=== PATIENT | male | born 1955 | race African-American/Black ===

== ENCOUNTER 2016-05-03 18:05 | Inpatient (IN) | payer MEDICARE ==
[~2016-05-03] VITALS: Ht 167.6 cm; Wt 62.3 kg
[2016-05-03] MEDS ORDERED: BENZ2TAB37 PO (18:26)
[2016-05-03] MEDS ORDERED: [UNRECOGNIZED DRUG - CODE] IM (18:28)
[2016-05-03 18:40] LABS: BASOPHILS % 0.2 % (0.0-2.0); CONDITION 1; EOSINOPHILS # 0.1 10^3/ul (0.0-0.5); HEMATOCRIT 41.7 % (42.0-52.0); LH ANALYZER COMMENTS 1; LYMPHOCYTES % 19.3 % (15.0-51.0); MEAN CORPUSCULAR HEMOGLOBIN 30.9 pg (29.0-33.0); MEAN CORPUSCULAR HGB CONC 33.5 g/dl (32.0-37.0); MEAN CORPUSCULAR VOLUME 92.1 fl (82.0-101.0); MEAN PLATELET VOLUME 7.9 fl (7.4-10.4); MONOCYTES % 9.9 % (0.0-11.0); NEUTROPHIL # 7.1 10^3/ul (1.6-7.5); NEUTROPHILS % 69.6 % (39.0-77.0); PLATELET COUNT 206 10^3/UL (140-440); RED BLOOD COUNT 4.53 10^6/ul (4.70-6.10); RED CELL DISTRIBUTION WIDTH 16.4 % (11.5-14.5); UNCORRECTED WBC 10.2 10^3/ul (4.8-10.8); WHITE BLOOD COUNT 10.2 10^3/ul (4.8-10.8)
--- NOTE | 2016-05-03 18:40 | RADRPT ---
PROCEDURE: XR Chest. CLINICAL INDICATION: Chest pain TECHNIQUE: Chest AP portable. COMPARISON: No comparison available. FINDINGS: The mediastinal structures are unremarkable. The heart is normal in size and configuration. The pu lmonary vascularity is normal. The lung perales are unremarkable. No consolidation is identified. The pleural spaces are unremarkable. The axial skeleton is unremarkable. IMPRESSION: No active intrathoracic disease. RPTAT: HGDB .Gutierrez Iraheta MD, MD Date Time Electronically viewed and signed by .Gutierrez Iraheta MD, MD on 05/03/2016 18:40 .B/
[2016-05-03 18:49] LABS: INR 0.89; PT RATIO 0.9
[2016-05-03 18:50] LABS: PARTIAL THROMBOPLASTIN TIME 29.2 Sec (25.0-35.0)
[2016-05-03 18:51] LABS: CHLORIDE 105 mmol/L (97-110); POTASSIUM 3.6 mmol/L (3.5-5.1); SODIUM 143 mmol/L (135-144)
[2016-05-03 18:53] LABS: CREATININE 0.89 mg/dl (0.61-1.24)
[2016-05-03 18:54] LABS: ANION GAP 14 (8-16); BLOOD UREA NITROGEN 12 mg/dl (7-20); CALCIUM 10.1 mg/dl (8.4-10.2); CARBON DIOXIDE 28 mmol/L (21-31); GLUCOSE 94 mg/dl (70-220)
[2016-05-03 19:07] LABS: TROPONIN-I < 0.012 ng/ml (0.00-0.12)
--- NOTE | 2016-05-03 19:34 | RADRPT ---
PROCEDURE: CT Brain without contrast. CLINICAL INDICATION: LLE weakness TECHNIQUE: A multiplanar CT of the brain was performed on a CT scanner utilizing axial imaging fro m the skull base through the vertex without IV contrast. The CTDIvol is 44.73 mGy and the DLP is 72 0.23 mGycm. One or more of the following dose reduction techniques were utilized: Automated exposu re control, adjustment of the mA and/or kV according to patient size, use of iterative reconstructio n technique. COMPARISON: None FINDINGS: No evidence of intracranial hemorrhage or abnormal extra-axial fluid collection. Subtle low attenuation in the region of the anterior limb of the right internal capsule. . Chronic microvascular ischemic injury versus lacunar infarct. The brain parenchyma is otherwise normal attenuation morphology with preservation of orourke white diff erentiation and age appropriate size of the ventricles and subarachnoid spaces. The posterior fossa contents, brainstem, craniocervical junction, orbits, pituitary axis, paranasal sinuses, mastoid air cells, and calvarium are unremarkable. Note is made of 2 cm cutaneous nodule pr otruding from a left supraorbital scalp. IMPRESSION: 1. Subtle focus of low attenuation in the region of the anterior limb of the right internal capsule . This may reflect chronic microvascular ischemic change versus lacunar infarct. Diffusion weighte d MRI may be considered for further evaluation. 2. No other acute intracranial abnormality or evidence of intracranial hemorrhage. RPTAT:AAJJ Physician Betsy Date Time Electronically viewed and signed by Physician Betsy on 05/03/2016 19:34 MIRIAM/
--- NOTE | 2016-05-03 19:49 | ERA ---
ER Documentation Chief Complaint Date/Time DATE: 05/03/16 TIME: 19:46 Chief Complaint woke up with left side weakness HPI This is a 60-year-old male with a history of hypertension and diabetes who presents to the emergency room for evaluation of left-sided weakness. The patient states that he woke up this morning with weakness in his left lower extremity and left upper extremity however he states the weakness in his left lower extremity is worse. He states that when he walks he cannot walk a straight line and is walking to the left. The patient denies any headache at this time, denies any numbness or tingling in his extremities and came to the emergency room for evaluation by ambulance. ROS All systems reviewed and are negative except as per history of present illness. Medications Home Meds Reported Medications Fluphenazine Decanoate (Prolixin Decanoate) 25 Mg/Ml Soln, 25 MG IM Q14 DAYS, EA 05/03/16 Benztropine Mesylate* (Benztropine Mesylate*) 2 Mg Tablet, 2 MG PO BID, TAB 05/03/16 Allergies Allergies: Coded Allergies: No Known Allergy (Unverified , 05/03/16) PMhx/Soc History of Surgery: Yes (unbilical hernia ) Anesthesia Reaction: No Hx Neurological Disorder: No Hx Respiratory Disorders: No Hx Cardiac Disorders: No (htn) Hx Psychiatric Problems: No Hx Miscellaneous Medical Probl: No Hx Alcohol Use: No Hx Substance Use: No Hx Tobacco Use: No Smoking Status: Former smoker Physical Exam Vitals Vital Signs Date Time Temp Pulse Resp B/P Pulse Ox O2 Delivery O2 Flow Rate FiO2 05/03/16 18:13 Nasal Cannula 2 05/03/16 18:07 97.8 69 18 166/91 99 Physical Exam INITIAL VITAL SIGNS: Reviewed by me GENERAL: The patient is well developed and appropriate for usual state of health in no apparent distress, pleasant affect HEENT: Pupils equal, round, and reactive to light. EOMI. There is no scleral icterus. NECK: C-spine is soft and supple, there is no meningismus. There is no cervical lymphadenopathy. LUNGS: Clear to auscultation bilaterally. There are no rales, wheezes or rhonchi. HEART: Regular rate and rhythm, no murmurs, clicks, rubs or gallops. ABDOMEN: Soft, non-tender, non-distended. There are bowel sounds in all four quadrants. No rebound or guarding. EXTREMITIES: There is no peripheral cyanosis or edema. No focal swelling or erythema. NEUROLOGICAL: The patient has 5 out of 5 strength in the right upper and right lower extremity. He has 4 out of 5 strength in the left upper extremity, and 3 out of 5 strength in the left lower extremity, alert and oriented to person place and time SKIN: There is no apparent rash or petechiae. HEME/LYMPHATIC: There is no evidence of excessive bruising or lymphedema. PSYCHIATRIC: The patient does not appear anxious or depressed. Result Diagram: 05/03/16182405/03/161824 Results 24 hrs Laboratory Tests Test 05/03/16 18:25 Activated Partial Thromboplast Time 29.2Sec Anion Gap 14 Basophils # 0.010^3/ul Basophils % 0.2% Blood Morphology Comment Blood Urea Nitrogen 12mg/dl Calcium Level 10.1mg/dl Carbon Dioxide Level 28mmol/L Chloride Level 105mmol/L Creatinine 0.89mg/dl Eosinophils # 0.110^3/ul Eosinophils % 1.0% Glucose Level 94mg/dl Hematocrit 41.7% Hemoglobin 14.0g/dl INR International Normalized Ratio 0.89 Lymphocytes # 2.010^3/ul Lymphocytes % 19.3% Mean Corpuscular Hemoglobin 30.9pg Mean Corpuscular Hemoglobin Concent 33.5g/dl Mean Corpuscular Volume 92.1fl Mean Platelet Volume 7.9fl Monocytes # 1.010^3/ul Monocytes % 9.9% Neutrophils # 7.110^3/ul Neutrophils % 69.6% Nucleated Red Blood Cells # 0.010^3/ul Nucleated Red Blood Cells % 0.0/100WBC Platelet Count 46695^3/UL Potassium Level 3.6mmol/L Prothrombin Time 12.0Sec Prothrombin Time Ratio 0.9 Red Blood Count 4.5310^6/ul Red Cell Distribution Width 16.4% Sodium Level 143mmol/L Troponin I < 0.012ng/ml White Blood Count 10.210^3/ul Current Medications Medications (Trade) Dose Ordered Sig/Kash Route PRN Reason Start Time Stop Time Status Last Admin Dose Admin Aspirin (Aspirin) 325 mg ONCE ONCE PO 05/03/16 20:00 05/03/16 20:01 05/03/16 19:42 Ondansetron HCl (Zofran Inj) 4 mg ER BRIDGE PRN IV NAUSEA AND/OR VOMITING 05/03/16 20:00 05/04/16 19:59 Acetaminophen (Tylenol Tab) 650 mg ER BRIDGE PRN PO MILD PAIN/FEVER 05/03/16 20:00 05/04/16 19:59 Procedures/MDM EKG: Rate/Rhythm: Sinus bradycardia QRS, ST, T-waves: [No changes consistent w/ acute ischemia] Impression: [No evidence of ischemia or arrhythmia] Chest X-ray 1V Interpreted by me: Soft Tissue: No acute abnormalities Bones: No acute abnormalities Mediastinum/Cardiac Silhouette/Lungs: [No acute abnormalities] CT head without: 1. Subtle focus of low attenuation in the region of the anterior limb of the right internal capsule. This may reflect chronic microvascular ischemic change versus lacunar infarct. Diffusion weighted MRI may be considered for further evaluation. 2. No other acute intracranial abnormality or evidence of intracranial hemorrhage. This is a 60-year-old male who presents to the emergency room for evaluation of left lower extremity weakness. This patient did state he woke up with these symptoms. On physical examination this patient does have left lower extremity weakness compared to the right, and I did obtain a CT of his brain which shows focus of low attenuation in the region of the anterior limb of the right internal capsule. Given this patient's left-sided weakness this patient will be placed in for admission for CVA. He is out of timeframe for any TPA at this time. He did pass a swallow screen and was given 325 mg of aspirin. He will undergo an MRI of the brain and will be admitted at this time under the care of her panel physician, Dr. laureano to the telemetry floor Departure Diagnosis: Primary Impression: CVA (cerebral vascular accident) Additional Impression: Left leg weakness Condition: WINSTON Moise DO May 03, 2016 19:49
--- NOTE | 2016-05-03 19:54 | HP ---
Date/Time of Note Date/Time of Note DATE: 05/03/16 TIME: 19:54 Assessment/Plan VTE Prophylaxis VTE Prophylaxis Intervention: SCD's Lines/Catheters IV Catheter Type (from Nrs): Peripheral IV Assessment/Plan Assessment/Plan PROBLEMS: 1. Acute L sided weakness 2/2 probable acute CVA 2. Chronic Paranoid Schizophrenia: controlled 3. Prev CVA with residual visual deficits PLAN: Admit tele / MRI / MRA brain and neck / 2D echo PT / OT eval / Neurology consult Screening labs for dyslipidemia, DM, Thyroid disease Empiric ASA / Statin therapy Continue home meds for co-morbidities Further evaluation and treatment will be based on clinical course and findings PROPHYLAXIS: SCDs / Pepcid Total time spent on this evaluation >35mins HPI/ROS Admit Date/Time Admit Date/Time 05/03/16 Hx of Present Illness PRESENTING COMPLAINT: L sided weakness HISTORY OF PRESENTING COMPLAINT: Mr Mauricio is a 60 yo M with a PMH of paranoid Schizophrenia controlled on meds who presents with L sided weakness of >1 day. Patient cannot recall exactly when symptoms started, but he does notes waking up yesterday morning and finding out that he was quite weak on his left side. Attempts to ambulate met with falling and stumbling to the L. Now he is unable to lift his LUE against gravity without assistance. He has had a stroke with residual visual deficits only worse in L eye but no deficits in his extremities. He also has some tremors from his psych med and that is controlled with cogentin. Brain CT in ER showed a possible Int capsule stroke, patient needs further work up, eval and MRI. ROS 12 point review if systems was done and pertinent findings are as noted. Eyes: visual change (chronic) ENT: no complaints Respiratory: no complaints Cardiovascular: no complaints Gastrointestinal: no complaints Musculoskeletal: other (focal deficits) Psychological: other (denies homicidal ideations), No suicidal PMH/Family/Social Past Medical History * Paranoid schizophrenia Past Surgical History * Umb hernia repair Family History Significant Family History: no pertinent family hx Social History Alcohol Use: none Smoking Status: Current every day smoker (x 40 years) Drug Use: marijuana Exam/Review of Systems Vital Signs Vitals Vital Signs Date Time Temp Pulse Resp B/P Pulse Ox O2 Delivery O2 Flow Rate FiO2 05/03/16 18:13 Nasal Cannula 2 05/03/16 18:07 97.8 69 18 166/91 99 Exam Constitutional: alert, oriented Psych: No suicidal Head: normocephalic Eyes: PERRL ENMT: mucosa pink and moist Neck: supple Respiratory: clear to auscultation, normal air movement Cardiovascular: regular rate and rhythm, No murmurs/extra sounds Gastrointestinal: bowel sounds, non-tender, soft Genitourinary - Female: No CVA tenderness Musculoskeletal: muscle weakness, nl extremities to inspection, No nl gait and stance Extremities: No edema Neurological: focal weakness (LUE power 3/5, LLE power 3.5/5, Right side extremities are normal), nl mental status, nl speech, No confused Labs Result Diagram: 05/03/16182405/03/161824 Medications Medications Current Medications Aspirin (Aspirin) 325 mg ONCE ONCE PO Last administered on 05/03/16t 19:42; Admin Dose 325 MG; Start 05/03/16 at 20:00; Stop 05/03/16 at 20:01 Procedures Procedures Laboratory Tests Test 05/03/16 18:25 Activated Partial Thromboplast Time 29.2Sec Anion Gap 14 Basophils # 0.010^3/ul Basophils % 0.2% Blood Morphology Comment Blood Urea Nitrogen 12mg/dl Calcium Level 10.1mg/dl Carbon Dioxide Level 28mmol/L Chloride Level 105mmol/L Creatinine 0.89mg/dl Eosinophils # 0.110^3/ul Eosinophils % 1.0% Glucose Level 94mg/dl Hematocrit 41.7% Hemoglobin 14.0g/dl INR International Normalized Ratio 0.89 Lymphocytes # 2.010^3/ul Lymphocytes % 19.3% Mean Corpuscular Hemoglobin 30.9pg Mean Corpuscular Hemoglobin Concent 33.5g/dl Mean Corpuscular Volume 92.1fl Mean Platelet Volume 7.9fl Monocytes # 1.010^3/ul Monocytes % 9.9% Neutrophils # 7.110^3/ul Neutrophils % 69.6% Nucleated Red Blood Cells # 0.010^3/ul Nucleated Red Blood Cells % 0.0/100WBC Platelet Count 91673^3/UL Potassium Level 3.6mmol/L Prothrombin Time 12.0Sec Prothrombin Time Ratio 0.9 Red Blood Count 4.5310^6/ul Red Cell Distribution Width 16.4% Sodium Level 143mmol/L Troponin I < 0.012ng/ml White Blood Count 10.210^3/ul ER INTERVENTIONS Medications (Trade) Dose Ordered Sig/Kash Route PRN Reason Start Time Stop Time Status Last Admin Dose Admin Aspirin (Aspirin) 325 mg ONCE ONCE PO 05/03/16 20:00 05/03/16 20:01 DC 05/03/16 19:42 Ondansetron HCl (Zofran Inj) 4 mg ER BRIDGE PRN IV NAUSEA AND/OR VOMITING 05/03/16 20:00 05/04/16 19:59 Acetaminophen (Tylenol Tab) 650 mg ER BRIDGE PRN PO MILD PAIN/FEVER 05/03/16 20:00 05/04/16 19:59 PROCEDURE: XR Chest. CLINICAL INDICATION: Chest pain TECHNIQUE: Chest AP portable. COMPARISON: No comparison available. FINDINGS: The mediastinal structures are unremarkable. The heart is normal in size and configuration. The pulmonary vascularity is normal. The lung perales are unremarkable. No consolidation is identified. The pleural spaces are unremarkable. The axial skeleton is unremarkable. IMPRESSION: No active intrathoracic disease. RPTAT: HGDB .Gutierrez Iraheta MD, Date Time Electronically viewed and signed by .Gutierrez Iraheta MD, on 05/03/2016 18:40 PROCEDURE: CT Brain without contrast. CLINICAL INDICATION: LLE weakness TECHNIQUE: A multiplanar CT of the brain was performed on a CT scanner utilizing axial imaging from the skull base through the vertex without IV contrast. The CTDIvol is 44.73 mGy and the DLP is 720.23 mGycm. One or more of the following dose reduction techniques were utilized: Automated exposure control, adjustment of the mA and/or kV according to patient size, use of iterative reconstruction technique. COMPARISON: None FINDINGS: No evidence of intracranial hemorrhage or abnormal extra-axial fluid collection. Subtle low attenuation in the region of the anterior limb of the right internal capsule. . Chronic microvascular ischemic injury versus lacunar infarct. The brain parenchyma is otherwise normal attenuation morphology with preservation of orourke white differentiation and age appropriate size of the ventricles and subarachnoid spaces. The posterior fossa contents, brainstem, craniocervical junction, orbits, pituitary axis, paranasal sinuses, mastoid air cells, and calvarium are unremarkable. Note is made of 2 cm cutaneous nodule protruding from a left supraorbital scalp. IMPRESSION: 1. Subtle focus of low attenuation in the region of the anterior limb of the right internal capsule. This may reflect chronic microvascular ischemic change versus lacunar infarct. Diffusion weighted MRI may be considered for further evaluation. 2. No other acute intracranial abnormality or evidence of intracranial hemorrhage. RPTAT:AAJJ Jose Antoine Physician Date Time Electronically viewed and signed by Physician Betsy on 05/03/2016 19:34 DAVE RAY May 03, 2016 19:54
[2016-05-03] MEDS ORDERED: ACETAMINOPHEN 325 MG TAB PO PRN ×2 (20:00→22:00)
[2016-05-03] MEDS ORDERED: ONDANSETRON 4 MG INJ IV PRN ×2 (20:00→22:00)
[2016-05-03] MEDS ORDERED: ASPIRIN 325 MG TAB PO ONE (20:00)
[2016-05-03 21:45] VITALS: Ht 167.6 cm; Wt 62.3 kg
[2016-05-03 21:50] VITALS: PULSE 50
[2016-05-03 21:59] VITALS: BP 168/90; RESP 16
[2016-05-03] MEDS ORDERED: hydrALAzine 20 MG INJ IV PRN (22:00)
[2016-05-03 23:26] VITALS: BP 141/60; RESP 16
[2016-05-04] VITALS (12 sets, daily range): BP systolic 124–172; BP diastolic 90–101; PULSE 52–88; RESP 16–20
[2016-05-04 00:57] LABS: ADD UMIC YES; URINE BILIRUBIN (Dip) NEGATIVE (NEGATIVE); URINE BLOOD (Dip) TRACE (NEGATIVE); URINE COLOR LT. YELLOW (YELLOW); URINE GLUCOSE (Dip) NEGATIVE (NEGATIVE); URINE KETONES (Dip) NEGATIVE (NEGATIVE); URINE LEUKOCYTE ESTERASE (Dip) NEGATIVE (NEGATIVE); URINE NITRITE (Dip) NEGATIVE (NEGATIVE); URINE TOTAL PROTEIN (Dip) NEGATIVE (NEGATIVE); URINE UROBILINOGEN (Dip) 0.2 E.U./dL (0.1-1.0)
[2016-05-04 01:11] LABS: CREATINE KINASE 99 IU/L (23-200)
[2016-05-04 01:16] LABS: SQUAMOUS EPITHELIAL CELL,UR RARE; URINE RBCS 0-2 /HPF (0)
[2016-05-04 01:21] LABS: CK-MB 0.77 ng/ml (0.0-2.4)
[2016-05-04 01:25] LABS: TROPONIN-I < 0.012 ng/ml (0.00-0.12)
[2016-05-04 01:26] LABS: BARBITURATES Negative (NEGATIVE); BENZODIAZEPINES Negative (NEGATIVE)
[2016-05-04 01:28] LABS: CANNABINOIDS Positive (NEGATIVE)
[2016-05-04 01:30] LABS: COCAINE Negative (NEGATIVE); OPIATES Negative (NEGATIVE)
[2016-05-04 06:11] LABS: BASOPHILS % 0.2 % (0.0-2.0); EOSINOPHILS # 0.2 10^3/ul (0.0-0.5); EOSINOPHILS % 1.5 % (0.0-7.0); HEMOGLOBIN 14.1 g/dl (14.0-18.0); LYMPHOCYTES # 1.7 10^3/ul (0.8-2.9); LYMPHOCYTES % 17.1 % (15.0-51.0); MEAN CORPUSCULAR HEMOGLOBIN 30.8 pg (29.0-33.0); MEAN CORPUSCULAR HGB CONC 33.6 g/dl (32.0-37.0); MEAN CORPUSCULAR VOLUME 91.6 fl (82.0-101.0); MEAN PLATELET VOLUME 7.8 fl (7.4-10.4); MONOCYTES % 9.8 % (0.0-11.0); NEUTROPHIL # 7.3 10^3/ul (1.6-7.5); NEUTROPHILS % 71.4 % (39.0-77.0); PLATELET COUNT 220 10^3/UL (140-440); RED BLOOD COUNT 4.58 10^6/ul (4.70-6.10); RED CELL DISTRIBUTION WIDTH 16.1 % (11.5-14.5); UNCORRECTED WBC 10.2 10^3/ul (4.8-10.8); WHITE BLOOD COUNT 10.2 10^3/ul (4.8-10.8)
[2016-05-04 06:21] LABS: CONDITION 1; LH ANALYZER COMMENTS 1
[2016-05-04 06:42] LABS: CK-MB 0.86 ng/ml (0.0-2.4)
[2016-05-04 06:44] LABS: TROPONIN-I < 0.012 ng/ml (0.00-0.12)
[2016-05-04 06:44] LABS: IRON 106 ug/dl (35-150)
[2016-05-04 06:48] LABS: CREATINE KINASE 95 IU/L (23-200); POTASSIUM 3.4 mmol/L (3.5-5.1)
[2016-05-04 06:50] LABS: BILIRUBIN,INDIRECT 0.4 mg/dl (0-1.1); BILIRUBIN,TOTAL 0.4 mg/dl (0.2-1.3); CREATININE 0.92 mg/dl (0.61-1.24); TOTAL PROTEIN 7.5 g/dl (6.1-8.1)
[2016-05-04 06:51] LABS: CALCIUM 9.7 mg/dl (8.4-10.2); CHOL/HDL RATIO 4.1 RATIO; MAGNESIUM 1.8 mg/dl (1.7-2.5)
[2016-05-04 06:54] LABS: TOTAL IRON BINDING CAPACITY 370 ug/dl (241-421)
[2016-05-04 06:56] LABS: ALBUMIN 3.8 g/dl (3.3-4.9)
[2016-05-04] MEDS: DOCUSATE SODIUM 100 MG CAP PO SCH ×2 (08:21→20:23)
[2016-05-04] MEDS: FAMOTIDINE 20 MG TAB PO SCH ×2 (08:21→20:23)
[2016-05-04] MEDS: HYDROCHLOROTHIAZIDE 25 MG TAB PO SCH (08:22)
[2016-05-04] MEDS ORDERED: ASPIRIN (EC) 81 MG TAB PO SCH (09:00)
--- NOTE | 2016-05-04 15:29 | PN ---
Date/Time of Note Date/Time of Note DATE: 05/04/16 TIME: 15:23 Assessment/Plan VTE Prophylaxis VTE Prophylaxis Intervention: SCD's Lines/Catheters IV Catheter Type (from [facility]): [facility] Urinary Cath still in place: No Assessment/Plan Chief Complaint/Hosp Course 1. Acute L sided weakness 2/2 probable acute CVA -MRI to R/O CVA -PT/OT eval -Empiric ASA / Statin therapy, Neurology consult 2. Chronic Paranoid Schizophrenia: controlled 3. Prev CVA with residual visual deficits PPx- SCD's Problems: Subjective 24 Hr Interval Summary Neurologic: focal-weakness (L side ) Exam/Review of Systems Vital Signs Vitals Vital Signs Date Time Temp Pulse Resp B/P Pulse Ox O2 Delivery O2 Flow Rate FiO2 05/04/16 12:34 56 05/04/16 12:30 98.0 18 156/101 98 Room Air 05/03/16 18:13 2 Intake and Output 05/03/16 05/03/16 05/04/16 15:00 23:00 07:00 Intake Total 400 ml Output Total 700 ml Balance -300 ml Exam Constitutional: alert, oriented Respiratory: clear to auscultation Cardiovascular: regular rate and rhythm Gastrointestinal: soft, No distended Musculoskeletal: nl extremities to inspection Neurological: focal weakness (4+/5 strength on L and 5/5 on R ) Results Result Diagram: 05/04/1624 05/04/16 0524 Results 24 hrs Laboratory Tests Test 05/03/16 18:25 05/04/16 00:00 05/04/16 00:35 05/04/16 05:24 Activated Partial Thromboplast Time 29.2 Anion Gap 14 15 Basophils # 0.0 0.0 Basophils % 0.2 0.2 Blood Morphology Comment Blood Urea Nitrogen 12 14 Calcium Level 10.1 9.7 Carbon Dioxide Level 28 26 Chloride Level 105 107 Creatinine 0.89 0.92 Eosinophils # 0.1 0.2 Eosinophils % 1.0 1.5 Glucose Level 94 93 Hematocrit 41.7 L 42.0 Hemoglobin 14.0 14.1 INR International Normalized Ratio 0.89 Lymphocytes # 2.0 1.7 Lymphocytes % 19.3 17.1 Mean Corpuscular Hemoglobin 30.9 30.8 Mean Corpuscular Hemoglobin Concent 33.5 33.6 Mean Corpuscular Volume 92.1 91.6 Mean Platelet Volume 7.9 7.8 Monocytes # 1.0 H 1.0 H Monocytes % 9.9 9.8 Neutrophils # 7.1 7.3 Neutrophils % 69.6 71.4 Nucleated Red Blood Cells # 0.0 0.0 Nucleated Red Blood Cells % 0.0 0.0 Platelet Count 206 220 Potassium Level 3.6 3.4 L Prothrombin Time 12.0 L Prothrombin Time Ratio 0.9 Red Blood Count 4.53 L 4.58 L Red Cell Distribution Width 16.4 H 16.1 H Sodium Level 143 145 H Troponin I < 0.012 < 0.012 < 0.012 White Blood Count 10.2 10.2 Urine Amorphous Urates FEW Urine Amphetamines Screen Negative Urine Barbiturates Negative Urine Benzodiazepines Screen Negative Urine Bilirubin NEGATIVE Urine Cannabinoids Positive Urine Clarity CLEAR Urine Cocaine Screen Negative Urine Color LT. YELLOW Urine Glucose NEGATIVE Urine Hemoglobin TRACE Urine Ketones NEGATIVE Urine Leukocyte Esterase NEGATIVE Urine Microscopic RBC 0-2 Urine Microscopic WBC NONE SEEN Urine Nitrite NEGATIVE Urine Opiates Screen Negative Urine Specific [employer] 1.015 Urine Squamous Epithelial Cells RARE Urine Total Protein NEGATIVE Urine Urobilinogen 0.2 E.U./dL Urine pH 7.0 Creatine Kinase 99 95 Creatine Kinase Index 0.8 0.9 Creatinine Kinase MB (Mass) 0.77 0.86 Alanine Aminotransferase (ALT/SGPT) 24 Albumin 3.8 Alkaline Phosphatase 83 Aspartate Amino Transf (AST/SGOT) 22 Cholesterol Level 211 H Cholesterol/HDL Ratio 4.1 Direct Bilirubin 0.00 HDL Cholesterol 51 Hemoglobin A1c 5.9 Indirect Bilirubin 0.4 LDL Cholesterol, Calculated 141 Magnesium Level 1.8 Thyroid Stimulating Hormone (TSH) Pending Total Bilirubin 0.4 Total Protein 7.5 Triglycerides Level 96 Test 05/04/16 05:29 Iron Level 106 Percent Iron Saturation 29 Total Iron Binding Capacity 370 Medications Medications Current Medications Aspirin (Halfprin) 81 mg DAILY PO Last administered on 05/04/16 08:21; Admin Dose 81 MG; Start 05/04/16 at 09:00 Famotidine (Pepcid) 20 mg BID PO Last administered on 05/04/16 08:21; Admin Dose 20 MG; Start 05/04/16 at 09:00 Docusate Sodium (Colace) 100 mg BID PO Last administered on 05/04/16 08:21; Admin Dose 100 MG; Start 05/04/16 at 09:00 Acetaminophen (Tylenol Tab) 650 mg Q6H PRN PO PAIN AND OR ELEVATED TEMP; Start 05/03/16 at 22:00 Ondansetron HCl (Zofran Inj) 4 mg Q6H PRN IV NAUSEA AND/OR VOMITING; Start 03/07 at 22:00 Hydrochlorothiazide (Hydrochlorothiazide) 25 mg DAILY PO Last administered on 08:22; Admin Dose 25 MG; Start 05/04/16 at 09:00 Hydralazine HCl (Apresoline) 10 mg Q6 PRN IV SBP >170mmhg Last administered on 05/04/16 08:26; Admin Dose 10 MG; Start 05/03/16 at 22:00 LAURA ROPER May 04, 2016 15:29
--- NOTE | 2016-05-04 15:52 | RADRPT ---
Echocardiogram Report Patient Name: MARCIA HUBBARD Gender: Male Date: 1955 Study Date: 04-May-2016 Secondary History Teacher: Sushila Velasquez [facility] Location: 510 Ref. Physician: DAVE RAY Quality: Good Procedures: Transthoracic echocardiogram with complete 2D, M-Mode, and doppler examination. Indications: Cerebrovascular Accident. 2D/M Mode Doppler Measurement Value Normal Ranges Measurement Value Normal Ranges LVIDd 2D 4.2 3.5 - 5.6 cm AV Peak Yanick 1.6 m/sec LVIDs 2D 2.1 2.1 - 4.1 cm AV Peak PG 10.0 mmHg FS 2D 48.7 % LVOT Peak Yanick 1.1 m/sec LVPWd 2D 1.3 0.6 - 1.1 cm LVOT Peak PG 5.0 mmHg IVSd 2D 1.1 0.6 - 1.1 cm MV E Peak Yanick 0.6 m/sec IVS/LVPW 2D 0.9 MV A Peak Yanick 0.7 m/sec AoR Diam 2D 2.8 2.0 - 3.7 cm MV E/A 1.0 LA/Ao 2D 1 0 - 1 MV Decel Time 243 msec EDV 2D 71.5 cm3 MV E/A 1.0 ESV 2D 9.7 cm3 LA Dimen 2D 2.7 2.3 - 4.0 cm Findings Left Ventricle: Normal left ventricular systolic function. Normal left ventricular cavity size. Mild concentric left ventricular hypertrophy. Ejection fraction is visually estimated at 65 %. Tissue Doppler/Mitral Doppler indices are consistent with impaired relaxation (Stage I diastolic dysfunction). Right Ventricle: Normal right ventricular size. Normal right ventricular systolic function. Left Atrium: The left atrium is normal in size. Right Atrium: The right atrium is normal in size. Mitral Valve: Mitral valve leaflets appear mildly thickened. Mild mitral valve regurgitation. Aortic Valve: Normal appearance of the aortic valve. No significant aortic stenosis or insufficiency. Tricuspid Valve: Normal appearance and function of the tricuspid valve with trace physiologic regurgitation. Pulmonic Valve: Normal pulmonic valve appearance. Pericardium: Normal pericardium with no significant pericardial effusion. Aorta: Normal aortic root. IVC: Normal size and normal respiratory collapse consistent with normal right atrial pressure. Conclusions 1.Normal left ventricular systolic function. Normal left ventricular cavity size. Mild concentric left ventricular hypertrophy. Ejection fraction is visually estimated at 65 %. Tissue Doppler/Mitral Doppler indices are consistent with impaired relaxation (Stage I diastolic dysfunction). 2.The left atrium is normal in size. 3.Mitral valve leaflets appear mildly thickened. Mild mitral valve regurgitation. 4.Normal appearance of the aortic valve. No significant aortic stenosis or insufficiency. 5.Normal appearance and function of the tricuspid valve with trace physiologic regurgitation. Electronically Signed By: Payam De Los Santos 04-May-2016 15:51:37 -0800 Patient Name: MARCIA HUBBARD Study Date: 04-May-[id number]
[2016-05-04 17:00] LABS: THYROID STIMULATING HORMONE 0.279 MIU/L (0.465-4.680)
[2016-05-04] MEDS: ATORVASTATIN 80 MG TAB PO SCH (20:23)
--- NOTE | 2016-05-04 23:07 | CONS ---
DATE OF ADMISSION: 05/03/2016 DATE OF CONSULTATION: 05/04/2016 TYPE OF CONSULTATION: Neurological. HISTORY OF PRESENT ILLNESS: The patient is a 60-year-old gentleman evaluated on 05/04/2016. According to the chart, patient has past medical history of paranoid schizophrenia and also previous history of a stroke about 1 year ago as well as hypertension and dyslipidemia who presented with le ft-sided weakness for approximately 1-day duration. He told me that he had a stroke about a year ag o with minimal residual of scotoma in the left eye. He states that he has history of hypertension a nd he goes to [facility], and he takes multiple different medications for blood pressure. Al so he is given medication for cholesterol. He takes baby aspirin, prior to admission he was taking. According to the note here, he is only on benztropine and Prolixin IM. ALLERGIES: NONE. SOCIAL HISTORY: Cigarette smoker: No. Drugs: Denies drug use and alcohol. FAMILY HISTORY: Not contributory. CURRENT MEDICATIONS: 1. Baby aspirin. 2. Pepcid. 3. Colace. 4. Hydrochlorothiazide. LABORATORY DATA: Essentially normal CBC, comprehensive metabolic panel. Cholesterol 211 and LDL 14 1. PT 12, PTT 29. Urinalysis negative. Tox screen is negative for drugs. IMAGING: The patient had chest x-ray. No acute disease. Brain CAT scan shows subtle low-attenuation focus in the anterior limb of the right internal capsule . ELECTROCARDIOGRAM: Sinus bradycardia. PHYSICAL EXAMINATION: VITAL SIGNS: Temperature 97.6, pulse 88, respirations 18, blood pressure 150/95. GENERAL: He is not in acute distress, lying in bed. HEENT: Normocephalic, atraumatic head. NECK: No carotid bruits. No thyromegaly. LUNGS: Clear to auscultation bilaterally. CARDIAC: Normal cardiac rhythm and sounds. ABDOMEN: Soft. Present bowel sounds. EXTREMITIES: No cyanosis, clubbing or edema. NEUROLOGIC: He is awake, alert and oriented x3 with fluent speech. Cranial nerve examination shows intact visual perales bilaterally. Pupils reactive from 3 to 2 mm bilaterally. Extraocular movemen ts intact without nystagmus. Minimally asymmetrical face with right nasolabial fold flattening but no definite weakness. Normal sensation on the face. Tongue is in midline. Palate elevates symmetr ically. Motor strength examination shows mild weakness about 4/5 in the left upper and lower extrem ities with trace of pronator drift. Normal bulk and tone. Sensory examination grossly intact to li ght touch and pain. Deep tendon reflexes 2+ throughout. Equivocal response to plantar stimulation on the left, downgoing on the right. Coordination examination shows mild dysmetria on zowfiq-gh-rrr veronica testing but no tremors. Gait was not assessed. IMPRESSION: Acute ischemic stroke in gentleman with risk factors for stroke. Keep euglycemic. It is okay to allow elevated blood pressure in the first few days after acute stroke as high as 220/120 , but the patient is already third day after stroke, so it is okay to gradually obtain control. We don't have full medication list for this patient. He states that he takes a lot of medicines from [facility]. I will switch aspirin to Plavix, start patient on high-dose Lipitor and continue current treatment otherwise. Continue physical therapy. Thank you very much for this interesting consultation. Dictated By: CHRIS CURRY/NIYAH Conf#: [id number] DID#: [id number]
[2016-05-05] VITALS (12 sets, daily range): BP systolic 136–161; BP diastolic 85–109; PULSE 69–106; RESP 15–21
--- NOTE | 2016-05-05 01:22 | RADRPT ---
PROCEDURE: MR Brain without contrast. CLINICAL INDICATION: TECHNIQUE: An MRI of the brain was performed on a 1.5 glenis scanner utilizing the following sequen kendra: Sagittal T1 weighted, axial T2 weighted, axial FLAIR, coronal GRE, and axial diffusion weighted with ADC mapping. COMPARISON: None FINDINGS: Restricted diffusion in right basal ganglia , external capsule, and florez radiata posteriorly siddhartha tible with acute/early subacute ischemic infarct. Remote lacunar infarcts in the basal ganglia bilat erally with chronic microvascular ischemic changes in the deep white matter. Preservation of orourke wh ite differentiation and prominence of the ventricles and subarachnoid spaces compatible with mild pa renchymal volume loss. There is no evidence of intracranial hemorrhage, mass effect, or midline shift. No extra-axial flui d collections are seen. No hypointense signal abnormalities are seen on the GRE images to suggest the presence of hemorrhage or blood degradation products. The posterior fossa contents, brainstem, seventh - eighth cranial nerve complexes, pituitary axis, o rbits, paranasal sinuses, and mastoid air cells are unremarkable. 2 cm cutaneous nodule protruding f rom of supraorbital scalp. Normal flow voids are visible in the proximal intracranial arteries and dural sinuses, indicating pa tency. IMPRESSION: 1. Restricted diffusion in the right basal ganglia/external capsule and posterior florez radiata com patible with acute/early subacute ischemic infarct. 2. No evidence of intracranial hemorrhage, edema, mass effect, or shift. 3. Chronic microvascular ischemic changes in the deep white matter and mild parenchymal volume loss . RPTAT:AAJJ Physician Betsy Date Time Electronically viewed and signed by Physician Betsy on 05/05/2016 01:21 MIRIAM/
--- NOTE | 2016-05-05 01:25 | RADRPT ---
PROCEDURE: MRA Neck without contrast. CLINICAL INDICATION: Dizziness. TECHNIQUE: An MRA of the major cervical arteries was performed on the 1.5 glenis scanner utilizing axial 2D time of flight. No IV contrast was given as ordered. Source and MIPPED images were reviewe d. COMPARISON: No prior studies are available for comparison. FINDINGS: The visualized aortic arch and i margin of the arch vessels are unremarkable . The common carotid arteries are patent and normal in caliber. Signal loss in the posterior aspect of the internal carotid artery bulb bilaterally likely flow rela demetria. A component of atherosclerotic plaque cannot be excluded. No evidence of hemodynamically sign ificant stenosis. Correlation with ultrasound and/or CT angiography may be considered. The vertebral arteries are patent and normal in caliber bilaterally. There is no evidence of vascul ar stenosis or occlusion. IMPRESSION: 1. No evidence of hemodynamically significant stenosis involving the neck vessels. 2. Signal loss at the level of the internal carotid artery bulbs bilaterally likely flow related. A component of atherosclerotic plaque cannot be excluded and correlation with Doppler ultrasound or CT angiography may be considered. RPTAT:AAJJ Physician Betsy Date Time Electronically viewed and signed by Physician Betsy on 05/05/2016 01:25 MIRIAM/
--- NOTE | 2016-05-05 01:34 | RADRPT ---
PROCEDURE: MRA Brain. CLINICAL INDICATION: Right basal ganglia ischemic infarct . TECHNIQUE: An MRA of the brain was performed on a 1.5 glenis scanner utilizing 3-D jhyi-wv-ttneiw MR angiography technique. Source and MIP images were reviewed. COMPARISON: None FINDINGS: The internal carotid arteries are patent and normal in caliber. The middle cerebral and the anterio r cerebral arteries are also patent and normal in caliber with no significant luminal irregularity o r narrowing identified. The basilar artery is markedly hypoplastic with greatest area of narrowing distally. This is likely developmental in nature. origin bilateral posterior cerebral arteries. The vertebral arteries and superior cerebellar arteries are visualized and normal in appearance. Th e right vertebral artery is dominant. The posterior cerebral arteries are patent and normal in appearance bilaterally. No aneurysms are detected. IMPRESSION: Markedly hypoplastic basilar artery. Otherwise, no intracranial aneurysm or vascular malformation. CT angiography may be considered for further characterization. RPTAT:AAJJ Physician Betsy Date Time Electronically viewed and signed by Physician Betsy on 05/05/2016 01:34 MIRIAM/
[2016-05-05 06:30] LABS: POTASSIUM 3.5 mmol/L (3.5-5.1)
[2016-05-05 06:33] LABS: BASOPHILS % 0.4 % (0.0-2.0); CALCIUM 10.1 mg/dl (8.4-10.2); CREATININE 0.99 mg/dl (0.61-1.24); EOSINOPHILS # 0.1 10^3/ul (0.0-0.5); EOSINOPHILS % 1.2 % (0.0-7.0); HEMATOCRIT 46.9 % (42.0-52.0); HEMOGLOBIN 15.9 g/dl (14.0-18.0); LYMPHOCYTES % 22.1 % (15.0-51.0); MEAN CORPUSCULAR HGB CONC 33.8 g/dl (32.0-37.0); MEAN CORPUSCULAR VOLUME 91.8 fl (82.0-101.0); MEAN PLATELET VOLUME 7.7 fl (7.4-10.4); MONOCYTE # 0.9 10^3/ul (0.3-0.9); MONOCYTES % 10.4 % (0.0-11.0); NEUTROPHILS % 65.9 % (39.0-77.0); PLATELET COUNT 226 10^3/UL (140-440); RED BLOOD COUNT 5.11 10^6/ul (4.70-6.10); UNCORRECTED WBC 9.1 10^3/ul (4.8-10.8); WHITE BLOOD COUNT 9.1 10^3/ul (4.8-10.8)
[2016-05-05 06:39] LABS: CONDITION 1; LH ANALYZER COMMENTS 1
[2016-05-05] MEDS: CLOPIDOGREL 75 MG TAB PO SCH (08:34)
[2016-05-05] MEDS: FAMOTIDINE 20 MG TAB PO SCH ×2 (08:34→21:19)
[2016-05-05] MEDS: HYDROCHLOROTHIAZIDE 25 MG TAB PO SCH (08:35)
[2016-05-05] MEDS: DOCUSATE SODIUM 100 MG CAP PO SCH ×2 (08:35→21:19)
--- NOTE | 2016-05-05 14:57 | PN ---
Date/Time of Note Date/Time of Note DATE: 05/05/16 TIME: 14:52 Assessment/Plan VTE Prophylaxis VTE Prophylaxis Intervention: SCD's Lines/Catheters IV Catheter Type [facility]from [facility] Saline Lock Urinary Cath still in place: No Assessment/Plan Chief Complaint/Hosp Course 1. Acute L sided weakness 2/2 acute CVA -MRI shows right basal ganglia/external capsule and posterior florez radiata compatible with acute/early subacute ischemic infarct -PT/OT eval pt is not ambulating well and will need Rehab, CM aware -Cont Plavix and Statin therapy, Neurology consult appreciated -will begin to treat HTN in AM with Norvasc 2. Chronic Paranoid Schizophrenia: controlled 3. Prev CVA with residual visual deficits 4. HTN -start Norvasc in AM PPx- SCD's Problems: Subjective 24 Hr Interval Summary Constitutional: no complaints Exam/Review of Systems Vital Signs Vitals Vital Signs Date Time Temp Pulse Resp B/P Pulse Ox O2 Delivery O2 Flow Rate FiO2 05/05/16 12:12 90 05/05/16 11:29 98.5 18 159/94 97 05/04/16 16:00 Room Air 05/03/16 18:13 2 Intake and Output 05/04/16 05/04/16 05/05/16 15:00 23:00 07:00 Intake Total 1320 ml 60 ml Output Total 800 ml 200 ml Balance 520 ml -140 ml Exam Constitutional: alert Respiratory: clear to auscultation Cardiovascular: regular rate and rhythm Gastrointestinal: soft, No distended Musculoskeletal: nl extremities to inspection Neurological: focal weakness (L sided weakness at 4-/5) Results Result Diagram: 05/05/16 0536 05/05/16 0536 Results 24 hrs Laboratory Tests Test 05/05/16 05:36 Anion Gap 18 H Basophils # 0.0 Basophils % 0.4 Blood Morphology Comment Blood Urea Nitrogen 22 H Calcium Level 10.1 Carbon Dioxide Level 25 Chloride Level 104 Creatinine 0.99 Eosinophils # 0.1 Eosinophils % 1.2 Glucose Level 113 Hematocrit 46.9 Hemoglobin 15.9 Lymphocytes # 2.0 Lymphocytes % 22.1 Mean Corpuscular Hemoglobin 31.0 Mean Corpuscular Hemoglobin Concent 33.8 Mean Corpuscular Volume 91.8 Mean Platelet Volume 7.7 Monocytes # 0.9 Monocytes % 10.4 Neutrophils # 6.0 Neutrophils % 65.9 Nucleated Red Blood Cells # 0.0 Nucleated Red Blood Cells % 0.0 Platelet Count 226 Potassium Level 3.5 Red Blood Count 5.11 Red Cell Distribution Width 16.0 H Sodium Level 143 White Blood Count 9.1 Medications Medications Current Medications Famotidine (Pepcid) 20 mg BID PO Last administered on 05/05/16 08:34; Admin Dose 20 MG; Start 05/04/16 at 09:00 Docusate Sodium (Colace) 100 mg BID PO Last administered on 05/05/16 08:35; Admin Dose 100 MG; Start 05/04/16 at 09:00 Acetaminophen (Tylenol Tab) 650 mg Q6H PRN PO PAIN AND OR ELEVATED TEMP; Start 05/03/16 at 22:00 Ondansetron HCl (Zofran Inj) 4 mg Q6H PRN IV NAUSEA AND/OR VOMITING; Start 03/07 at 22:00 Hydrochlorothiazide (Hydrochlorothiazide) 25 mg DAILY PO Last administered on 08:35; Admin Dose 25 MG; Start 05/04/16 at 09:00 Hydralazine HCl (Apresoline) 10 mg Q6 PRN IV SBP >170mmhg Last administered on 05/04/16 08:26; Admin Dose 10 MG; Start 05/03/16 at 22:00 Clopidogrel Bisulfate (plaVIX) 75 mg DAILY PO Last administered on 05/05/16 08 :34; Admin Dose 75 MG; Start 05/05/16 at 09:00 Atorvastatin Calcium (Lipitor) 80 mg HS PO Last administered on 05/04/16 20:23 ; Admin Dose 80 MG; Start 05/04/16 at 21:00 LAURA ROPER May 05, 2016 14:57
[2016-05-05] MEDS: AMLODIPINE 5 MG TAB PO SCH (15:37)
[2016-05-05] MEDS: ATORVASTATIN 80 MG TAB PO SCH (21:19)
[2016-05-05] MEDS: BENZTROPINE 1 MG TAB PO SCH (21:19)
[2016-05-06 00:04] VITALS: BP 135/87; RESP 19
[2016-05-06 00:33] VITALS: BP 142/97
[2016-05-06 02:53] VITALS: BP 115/74
[2016-05-06 05:47] LABS: BASOPHILS % 0.3 % (0.0-2.0); EOSINOPHILS # 0.1 10^3/ul (0.0-0.5); EOSINOPHILS % 1.3 % (0.0-7.0); HEMATOCRIT 47.4 % (42.0-52.0); HEMOGLOBIN 15.9 g/dl (14.0-18.0); LYMPHOCYTES % 21.7 % (15.0-51.0); MEAN CORPUSCULAR HEMOGLOBIN 30.9 pg (29.0-33.0); MEAN CORPUSCULAR HGB CONC 33.6 g/dl (32.0-37.0); MEAN CORPUSCULAR VOLUME 91.9 fl (82.0-101.0); MONOCYTE # 1.1 10^3/ul (0.3-0.9); MONOCYTES % 11.5 % (0.0-11.0); NEUTROPHILS % 65.2 % (39.0-77.0); PLATELET COUNT 223 10^3/UL (140-440); RED BLOOD COUNT 5.16 10^6/ul (4.70-6.10); RED CELL DISTRIBUTION WIDTH 15.7 % (11.5-14.5); UNCORRECTED WBC 9.2 10^3/ul (4.8-10.8); WHITE BLOOD COUNT 9.2 10^3/ul (4.8-10.8)
[2016-05-06 05:48] LABS: CONDITION 1; LH ANALYZER COMMENTS 1
[2016-05-06 06:00] LABS: POTASSIUM 3.5 mmol/L (3.5-5.1)
[2016-05-06 06:03] LABS: CALCIUM 10.1 mg/dl (8.4-10.2); CREATININE 1.05 mg/dl (0.61-1.24)
[2016-05-06 08:02] VITALS: BP 113/81; RESP 16
[2016-05-06] MEDS: DOCUSATE SODIUM 100 MG CAP PO SCH (09:13)
[2016-05-06] MEDS: FAMOTIDINE 20 MG TAB PO SCH (09:14)
[2016-05-06] MEDS: CLOPIDOGREL 75 MG TAB PO SCH (09:14)
[2016-05-06] MEDS: HYDROCHLOROTHIAZIDE 25 MG TAB PO SCH (09:16)
[2016-05-06] MEDS: AMLODIPINE 5 MG TAB PO SCH (09:16)
[2016-05-06] MEDS: BENZTROPINE 1 MG TAB PO SCH (09:39)
[2016-05-06] MEDS ORDERED: AMLO-145 PO (11:55)
[2016-05-06] MEDS ORDERED: ATOR80TA75 PO (11:55)
[2016-05-06] MEDS ORDERED: CLOP75TA28 PO (11:55)
[2016-05-06] MEDS ORDERED: HYD25 PO (11:55)
--- NOTE | 2016-05-06 16:23 | DS ---
DATE OF ADMISSION: 05/03/2016 DATE OF DISCHARGE: 05/06/2016 DISCHARGE DIAGNOSES: 1. Acute left-sided weakness secondary to acute cerebrovascular accident. MRI showed right basal g anglia stroke, as well as prominent posterior florez radiata. The patient was started on Plavix and statin. Discharged to rehab facility. 2. Hypertension. The patient was started on Norvasc and hydrochlorothiazide and BP is now stable. 3. Paranoid schizophrenia. Continue home medications. HOSPITAL COURSE: The patient is a 60-year-old male with history of schizophrenia and hypertension. The patient presented with left-sided weakness for 1 day and somewhat a poor historian on arrival. The patient had a brain MRI that showed a ____effusion in right basal ganglia external capsule and posterior florez radiata compatible with early subacute ischemic infarct. Of note, the patient had a brain CT on arrival that showed low attenuation in the region, anterior limb of the right internal capsule, which may reflect chronic microvascular ischemic changes versus lacunar infarct. Of note , the patient was not given TPA on arrival. Once again, his symptoms began greater than 1 day prior . The patient did receive PT and recommendation was for rehabilitation. The patient was seen by [facility]. The patient was started on Lipitor and Plavix. BP was initially allowed to be elevated se condary to permissive hypertension but ultimately it was treated outside the window for permissive h ypertension. He was controlled with hydrochlorothiazide and Norvasc. The patient was agreeable to rehab placement. wireless development manager did arrange for placement. On the day of discharge, the patient's vi tals and labs were stable. He had no acute complaints. Questions were answered. CONDITION ON DISCHARGE: Stable. DISPOSITION: To rehabilitation facility. MEDICATIONS: 1. The patient was given new prescription for Norvasc 5 daily. 2. Atorvastatin 80 mg p.o. at bedtime. 3. Plavix 75 daily. 4. Hydrochlorothiazide 25 mg daily. 5. The patient was to continue home medications. FOLLOWUP: The patient is to follow up with physicians at the rehab facility. Thirty minutes were spent coordinating discharge. Dictated By: LAURA ROPER MD BS/NTS Conf#: [id number] DID#: [id number]
== END 2016-05-06 14:07 | DRG 65 ==
LOC: E/R 18:05 → TEL 19:43 → MS1 05-06 00:40
PROVIDERS: ADMIT Family Medicine; ATTEND Family Medicine
DX: I63.9 Cerebral infarction, unspecified (principal); F20.0 Paranoid schizophrenia; I69.354 Hemiplegia and hemiparesis following cerebral infarction affecting left non-dominant side; I10 Essential (primary) hypertension; Z72.0 Tobacco use
CPT/HCPCS: 36415; 70450; 70544; 70549; 70551; 71010; 80048; 80061; 80076; 80307; 81001; 81003; 82550; 82553; 83036; 83540; 83735; 84443; 84484; 85025; 85610; 85730; 93005; 93306; 97110; 97116; 97162; 97530; J0360

== ENCOUNTER 2016-05-11 14:26 | Inpatient (IN) | payer MEDICARE ==
[~2016-05-11] VITALS: Ht 167.6 cm; Wt 63.6 kg
[~2016-05-11 14:26] MED LIST: AMLO-145 PO; ATOR80TA75 PO; BENZ2TAB37 PO; CLOP75TA28 PO; HYD25 PO; [UNRECOGNIZED DRUG - CODE] IM
--- NOTE | 2016-05-11 14:30 | ERA ---
ER Documentation Chief Complaint Date/Time DATE: 05/11/16 TIME: 14:30 Chief Complaint Left sided weakness HPI The patient is a 60-year-old male, presenting to the ER because of worsening left-sided weakness around 10 pm last night. He had a stroke about 2 weeks ago with left-sided weakness. He denies headache, dizziness, neck pain, chest pain , dyspnea, abdominal pain, vomiting, dysuria, diarrhea. He is unable to walk due to the stroke Past medical history: History of CVA with left hemiparesis, paranoid schizophrenia, hypertension, dyslipidemia ROS All systems reviewed and are negative except as per history of present illness. Medications Home Meds Active Scripts Hydrochlorothiazide* (Hydrochlorothiazide*) 25 Mg Tab, 25 MG PO DAILY, #30 TAB Prov:LAURA ROPER 05/06/16 Clopidogrel Bisulfate (Clopidogrel) 75 Mg Tablet, 75 MG PO DAILY, #30 TAB Prov:LAURA ROPER 05/06/16 Atorvastatin* (Atorvastatin*) 80 Mg Tablet, 80 MG PO HS, #30 TAB Prov:LAURA ROPER 05/06/16 Amlodipine Besylate* (Amlodipine Besylate*) 5 Mg Tablet, 5 MG PO DAILY, #30 TAB Prov:LAURA ROPER 05/06/16 Reported Medications Benztropine Mesylate* (Benztropine Mesylate*) 2 Mg Tablet, 2 MG PO BID, TAB 05/03/16 Discontinued Reported Medications Fluphenazine Decanoate (Prolixin Decanoate) 25 Mg/Ml Soln, 25 MG IM Q14 DAYS, EA 05/03/16 Allergies Allergies: Coded Allergies: No Known Allergy (Unverified , 05/11/16) PMhx/Soc History of Surgery: Yes (UMBILICAL HERNIA REMOVAL;) Anesthesia Reaction: No Hx Neurological Disorder: No Hx Respiratory Disorders: No Hx Cardiac Disorders: Yes (HTN) Hx Psychiatric Problems: No Hx Miscellaneous Medical Probl: Yes (HTN, DM, chronic paranoid schizophrenia, umbilical hernia) Hx Alcohol Use: No Hx Substance Use: No Hx Tobacco Use: Yes Physical Exam Vitals Vital Signs Date Time Temp Pulse Resp B/P Pulse Ox O2 Delivery O2 Flow Rate FiO2 05/11/16 17:00 98.5 91 18 140/109 100 Room Air 05/11/16 14:32 98.4 89 18 131/91 100 Physical Exam Const: No acute distress. Head: Atraumatic. Eyes: Normal Conjunctiva. ENT: Normal External Ears, Nose and Mouth. Neck: Full range of motion. No meningismus. Resp: Clear to auscultation bilaterally. Cardio: Regular rate and rhythm, no murmurs. Abd: Soft, non distended, normal bowel sounds, non tender. Skin: No petechiae or rashes. Back: No midline or flank tenderness. Ext: No cyanosis, or edema. Neur: Awake and alert. Left hemiparalysis Psych: Normal Mood and Affect. Result Diagram: 05/11/16 1430 05/11/16 1430 Results 24 hrs Laboratory Tests Test 05/11/16 14:30 05/11/16 15:29 Activated Partial Thromboplast Time 29.3Sec Anion Gap 14 Basophils # 0.110^3/ul Basophils % 1.3% Blood Morphology Comment Blood Urea Nitrogen 22mg/dl Calcium Level 9.7mg/dl Carbon Dioxide Level 30mmol/L Chloride Level 102mmol/L Creatinine 0.97mg/dl Eosinophils # 0.110^3/ul Eosinophils % 1.3% Glucose Level 90mg/dl Hematocrit 44.6% Hemoglobin 14.9g/dl Hemoglobin A1c 5.8% INR International Normalized Ratio 0.93 Lymphocytes # 1.810^3/ul Lymphocytes % 21.9% Mean Corpuscular Hemoglobin 31.0pg Mean Corpuscular Hemoglobin Concent 33.5g/dl Mean Corpuscular Volume 92.7fl Mean Platelet Volume 8.0fl Monocytes # 0.910^3/ul Monocytes % 10.9% Neutrophils # 5.410^3/ul Neutrophils % 64.6% Nucleated Red Blood Cells # 0.010^3/ul Nucleated Red Blood Cells % 0.0/100WBC Platelet Count 04000^3/UL Potassium Level 4.1mmol/L Prothrombin Time 12.5Sec Prothrombin Time Ratio 1.0 Red Blood Count 4.8110^6/ul Red Cell Distribution Width 14.7% Sodium Level 142mmol/L Troponin I < 0.012ng/ml White Blood Count 8.410^3/ul Bedside Glucose 88mg/dL Procedures/MDM EKG: Read by emergency physician Rate/Rhythm: Normal Sinus Rhythm 81 beats/min QRS, ST, T-waves: No ST elevation, no T inversion, left atrial enlargement, nonspecific T abnormality Impression: Abnormal EKG [place] [id number] Radiology Main Line: [phone] DIAGNOSTIC IMAGING REPORT Patient: MARCIA HUBBARD : 1955 Age: 60 Sex: M MR #: [id number] DOS: 05/11/16 1434 Ordering MD: KARLENE DONOHUE MD Location: E/R Room/Bed: PROCEDURE: CT Brain without contrast. CLINICAL INDICATION: Neurologic deficit TECHNIQUE: A CT of the brain was performed on multidetector high-resolution CT scanner utilizing axial sections from the skull base through the vertex without contrast. One or more of the following dose reduction techniques were used: Automated exposure control, Adjustment of the mA and/or kV according to patient size, and/or use of iterative reconstruction technique. DOSE: CTDI = 41 mGy and the DLP = 720 mGy-cm. COMPARISON: Head CT 05/03/2016 ; brain MRI 05/04/2016 FINDINGS: Evolution of the previously diagnosed subacute right basal ganglia/florez radiata lacunar infarct with hypoattenuation of CT now seen. Focal hypoattenuation in the right carlee is new from prior. No acute intracranial hemorrhage or midline shift. Patchy hypoattenuation of the cerebral white matter is compatible with mild chronic microvascular ischemic changes. Atherosclerotic calcifications of the cavernous segments of the internal carotid arteries are seen. Prominence of the cortical sulci and ventricles are related to mild cerebral volume loss. No significant opacification of the visualized paranasal sinuses or mastoids. IMPRESSION: Evolution of the previously diagnosed subacute right basal ganglia/florez radiata lacunar infarct with hypoattenuation of CT now seen. Focal hypoattenuation in the right carlee is new from prior. This could be due to artifact but a new infarct is not excluded. Recommend MRI brain for further evaluation. Mild chronic microvascular disease and intracranial atherosclerosis. A call report was made to Dr. DONOHUE at 05/11/2016 3:13:49 PM. RPTAT: AA .Matthew Magana MD, Date Time Electronically viewed and signed by .Matthew Magana MD, on 05/11/2016 15:14 .T/ CC: KARLENE DONOHUE MD MEDICAL MAKING DECISION: The patient is a 60-year-old male, presenting with acute on chronic left sided weakness, possible acute new stroke. The differential diagnoses considered include but are not limited to TIA, stroke, debility Departure Diagnosis: Primary Impression: Left-sided weakness Condition: Stable Comments I discussed the findings with the patient. I discussed the patient with the on- call hospitalist Dr. Solo who was made aware of the lab, the treatment, the patient condition. The patient is admitted to telemetry at 3:45 PM KARLENE DONOHUE MD May 11, 2016 14:30
[2016-05-11 14:41] LABS: BASOPHIL # 0.1 10^3/ul (0.0-0.1); BASOPHILS % 1.3 % (0.0-2.0); EOSINOPHILS # 0.1 10^3/ul (0.0-0.5); EOSINOPHILS % 1.3 % (0.0-7.0); HEMATOCRIT 44.6 % (42.0-52.0); HEMOGLOBIN 14.9 g/dl (14.0-18.0); LYMPHOCYTES # 1.8 10^3/ul (0.8-2.9); LYMPHOCYTES % 21.9 % (15.0-51.0); MEAN CORPUSCULAR HGB CONC 33.5 g/dl (32.0-37.0); MEAN CORPUSCULAR VOLUME 92.7 fl (82.0-101.0); MONOCYTE # 0.9 10^3/ul (0.3-0.9); MONOCYTES % 10.9 % (0.0-11.0); NEUTROPHIL # 5.4 10^3/ul (1.6-7.5); NEUTROPHILS % 64.6 % (39.0-77.0); PLATELET COUNT 239 10^3/UL (140-440); RED BLOOD COUNT 4.81 10^6/ul (4.70-6.10); RED CELL DISTRIBUTION WIDTH 14.7 % (11.5-14.5); UNCORRECTED WBC 8.4 10^3/ul (4.8-10.8); WHITE BLOOD COUNT 8.4 10^3/ul (4.8-10.8)
[2016-05-11 14:48] LABS: CHLORIDE 102 mmol/L (97-110); CONDITION 1; LH ANALYZER COMMENTS 1; SODIUM 142 mmol/L (135-144)
[2016-05-11 14:49] LABS: POTASSIUM 4.1 mmol/L (3.5-5.1)
[2016-05-11 14:50] LABS: INR 0.93; PROTIME 12.5 Sec (12.2-14.2)
[2016-05-11 14:51] LABS: ANION GAP 14 (8-16); CARBON DIOXIDE 30 mmol/L (21-31); CREATININE 0.97 mg/dl (0.61-1.24); PARTIAL THROMBOPLASTIN TIME 29.3 Sec (25.0-35.0)
[2016-05-11 14:52] LABS: BLOOD UREA NITROGEN 22 mg/dl (7-20); CALCIUM 9.7 mg/dl (8.4-10.2); GLUCOSE 90 mg/dl (70-220)
[2016-05-11 15:11] LABS: TROPONIN-I < 0.012 ng/ml (0.00-0.12)
--- NOTE | 2016-05-11 15:15 | RADRPT ---
PROCEDURE: CT Brain without contrast. CLINICAL INDICATION: Neurologic deficit TECHNIQUE: A CT of the brain was performed on multidetector high-resolution CT scanner utilizing a xial sections from the skull base through the vertex without contrast. One or more of the following dose reduction techniques were used: Automated exposure control, Adjustment of the mA and/or kV acc ording to patient size, and/or use of iterative reconstruction technique. DOSE: CTDI = 41 mGy and the DLP = 720 mGy-cm. COMPARISON: Head CT 05/03/2016 ; brain MRI 05/04/2016 FINDINGS: Evolution of the previously diagnosed subacute right basal ganglia/florez radiata lacunar infarct wi th hypoattenuation of CT now seen. Focal hypoattenuation in the right carlee is new from prior. No acu te intracranial hemorrhage or midline shift. Patchy hypoattenuation of the cerebral white matter is compatible with mild chronic microvascular ischemic changes. Atherosclerotic calcifications of the c avernous segments of the internal carotid arteries are seen. Prominence of the cortical sulci and ve ntricles are related to mild cerebral volume loss. No significant opacification of the visualized paranasal sinuses or mastoids. IMPRESSION: Evolution of the previously diagnosed subacute right basal ganglia/florez radiata lacunar infarct wi th hypoattenuation of CT now seen. Focal hypoattenuation in the right carlee is new from prior. This could be due to artifact but a new i nfarct is not excluded. Recommend MRI brain for further evaluation. Mild chronic microvascular disease and intracranial atherosclerosis. A call report was made to Dr. DONOHUE at 05/11/2016 3:13:49 PM. RPTAT: AA .Matthew Magana MD, MD Date Time Electronically viewed and signed by .Matthew Magana MD, MD on 05/11/2016 15:14 .T/
[2016-05-11 18:30] VITALS: TEMP 98.5
[2016-05-11] MEDS ORDERED: HALOPERIDOL 5 MG INJ ONE (19:26)
[2016-05-11] MEDS ORDERED: DIPHENHYDRAMINE 50 MG INJ ONE (19:26)
[2016-05-11] MEDS ORDERED: LORAZEPAM 2 MG INJ ONE (19:26)
[2016-05-11] MEDS ORDERED: hydrALAzine 20 MG INJ IV PRN (19:30)
[2016-05-11] MEDS ORDERED: ACETAMINOPHEN 325 MG TAB PO PRN (19:30)
[2016-05-11] MEDS ORDERED: ONDANSETRON 4 MG INJ IV PRN (19:30)
[2016-05-11] MEDS ORDERED: LORAZEPAM 2 MG INJ IV ONE (19:40)
[2016-05-11] MEDS ORDERED: HALOPERIDOL 5 MG INJ IV ONE (19:40)
[2016-05-11] MEDS ORDERED: DIPHENHYDRAMINE 50 MG INJ IV ONE (19:40)
[2016-05-11] MEDS ORDERED: IOHEXOL 350MG/ML 50 ML BTL ONE (20:08)
[2016-05-11] MEDS ORDERED: SOD CHLORIDE 0.9% 100 ML ONE (20:08)
[2016-05-11] MEDS ORDERED: IOHEXOL 100 ML ONE (20:08)
[2016-05-11] MEDS: BENZTROPINE 1 MG TAB PO SCH (21:00)
--- NOTE | 2016-05-11 21:09 | RADRPT ---
PROCEDURE: MRI Brain without contrast. CLINICAL INDICATION: Recurrent stroke TECHNIQUE: An MRI of the brain was performed on a high resolution hi-definition MRI scanner utiliz ing the following sequences: Sagittal and axial T1 weighted, axial T2 weighted, axial T2 FLAIR, axia l diffusion weighted with ADC mapping, an coronal GRE. COMPARISON: 05/04/2016 brain MRI and 05/03/[address] FINDINGS: On diffusion weighted sequences, extension of the previously noted acute infarct in the right tubing machine operator ior florez radiography and external capsule is now noted in the right posterior limb of the internal capsule and the right cortical spinal tracts in the right cerebral peduncle. No definite evidence for acute infarcts in the carlee are noted. No hypointense signal abnormalities are seen on the GRE i mages to suggest the presence of blood degradation products. No extra-axial fluid collections are p resent. The ventricles and sulci are age appropriate. Mild diffuse volume loss is present. On the FLAIR and T2-weighted sequences, punctate foci of hyperintensity are present in the bilateral centrum semiovale and periventricular white matter as well as the carlee compatible with mild chronic microvascular ischemic disease. No evidence of intracranial hemorrhage, mass effect or midline shif t is present. Normal flow voids are visible in the proximal intracranial arteries and dural sinuses , indicating patency. The scalp and calvarium are remarkable for a left frontal scalp 2.3 cm subcutaneous nodule. The dank varium is normal. The bilateral orbits are normal. The bilateral paranasal sinuses are clear. The bilateral mastoid air cells and middle ear cavities demonstrate incomplete pneumatization and katt l bilateral middle ear cavities. IMPRESSION: 1. Acute extension of ischemic infarct now noted in the right posterior limb of the internal capsul e and cerebral peduncle. 2. Acute or early subacute infarct in the right posterior florez radiography and external capsule a nd superior basal ganglia as noted on prior MRI. 3. Mild chronic microvascular ischemic disease and mild diffuse volume loss. 4. Left frontal 2.3 cm subcutaneous nodule. A call report was made to Dr. Remy at 05/11/2016 9:06:20 PM following the completion of the examin ation by the undersigned. RPTAT: HDC .Jeana Ba MD, Date Time Electronically viewed and signed by .Jeana Ba MD, on 05/11/2016 21:09 .C/
--- NOTE | 2016-05-11 21:17 | RADRPT ---
PROCEDURE: CTA head. CLINICAL INDICATION: Focal neurologic deficit. TECHNIQUE: Direct spiral 0.63 mm axial sections were obtained through the intracranial vasculature with the use of 90 cc of Omnipaque 350 nonionic intravenous contrast material. Coronal and sagitta l as well as 3-D maximal intensity projection reformations were obtained. The images were reviewed o n a PACS workstation. CTDIvol: 48.22, 33.60 mGy. DLP: 651.10 mGy-cm. COMPARISON: MRA brain dated 05/04/2016, brain MRI dated 05/11/2016. FINDINGS: The bilateral ICAs, ACAs, MCAs, and senior java ui developer are widely patent. Minimal calcified atherosclerotic plaque is identified along the cavernous left ICA. The vertebrobasilar system is patent. The basilar robert ry is hypoplastic. Bilateral PCOMs are visualized, right larger than left. The visualized cerebella r arteries are unremarkable. No intracranial aneurysm or vascular malformation is seen. IMPRESSION: 1. No significant stenosis or occlusion of the major intracranial arteries. The basilar artery is hy poplastic, however bilateral PCOMs are visualized, right larger than left. 2. No aneurysm or vascular malformation. RPTAT: HTAR .Kael Tracy MD, MD Date Time Electronically viewed and signed by .Kael Tracy MD, on 05/11/2016 21:17 .R/
[2016-05-11 21:30] VITALS: BP 153/93; RESP 18
[2016-05-11 21:54] VITALS: PULSE 112
[2016-05-11 22:25] LABS: ADD UMIC YES; URINE BILIRUBIN (Dip) NEGATIVE (NEGATIVE); URINE BLOOD (Dip) TRACE (NEGATIVE); URINE COLOR LT. YELLOW (YELLOW); URINE GLUCOSE (Dip) NEGATIVE (NEGATIVE); URINE KETONES (Dip) NEGATIVE (NEGATIVE); URINE LEUKOCYTE ESTERASE (Dip) NEGATIVE (NEGATIVE); URINE NITRITE (Dip) NEGATIVE (NEGATIVE); URINE TOTAL PROTEIN (Dip) NEGATIVE (NEGATIVE); URINE UROBILINOGEN (Dip) 1.0 E.U./dL (0.1-1.0)
[2016-05-11 22:55] LABS: BARBITURATES NEGATIVE (NEGATIVE); BENZODIAZEPINES NEGATIVE (NEGATIVE); CANNABINOIDS POSITIVE (NEGATIVE); COCAINE NEGATIVE (NEGATIVE); OPIATES NEGATIVE (NEGATIVE)
[2016-05-11 23:17] VITALS: Ht 167.6 cm; Wt 63.6 kg
[2016-05-11] MEDS: FAMOTIDINE 20 MG TAB PO SCH (23:45)
[2016-05-11] MEDS: ATORVASTATIN 80 MG TAB PO SCH (23:45)
[2016-05-11] MEDS: DOCUSATE SODIUM 100 MG CAP PO SCH (23:45)
[2016-05-12] VITALS (12 sets, daily range): BP systolic 120–146; BP diastolic 76–94; PULSE 70–100; RESP 15–20
--- NOTE | 2016-05-12 00:09 | RADRPT ---
PROCEDURE: XR Chest. CLINICAL INDICATION: Possible Stroke, altered mental status TECHNIQUE: Single frontal view of the chest was obtained. COMPARISON: 05/03/2016 FINDINGS: The cardiomediastinal silhouette is normal size. Pulmonary vasculature is within normal limits. Th e lungs are clear. No signs of pleural fluid or pneumothorax are seen. There is deformity of the right third rib, chron ic. IMPRESSION: No evidence for active cardiopulmonary disease. RPTAT: HBST .Lennox Kramer MD, MD Date Time Electronically viewed and signed by .Lennox Kramer MD, MD on 05/12/2016 00:09 .T/
[2016-05-12 07:22] LABS: BASOPHILS % 0.3 % (0.0-2.0); EOSINOPHILS # 0.2 10^3/ul (0.0-0.5); EOSINOPHILS % 1.9 % (0.0-7.0); HEMATOCRIT 41.2 % (42.0-52.0); HEMOGLOBIN 13.8 g/dl (14.0-18.0); LYMPHOCYTES # 1.6 10^3/ul (0.8-2.9); LYMPHOCYTES % 19.3 % (15.0-51.0); MEAN CORPUSCULAR HEMOGLOBIN 31.3 pg (29.0-33.0); MEAN CORPUSCULAR HGB CONC 33.6 g/dl (32.0-37.0); MEAN CORPUSCULAR VOLUME 93.1 fl (82.0-101.0); MEAN PLATELET VOLUME 8.1 fl (7.4-10.4); MONOCYTE # 0.8 10^3/ul (0.3-0.9); MONOCYTES % 9.8 % (0.0-11.0); NEUTROPHIL # 5.8 10^3/ul (1.6-7.5); NEUTROPHILS % 68.7 % (39.0-77.0); PLATELET COUNT 232 10^3/UL (140-440); RED BLOOD COUNT 4.42 10^6/ul (4.70-6.10); RED CELL DISTRIBUTION WIDTH 14.6 % (11.5-14.5); UNCORRECTED WBC 8.4 10^3/ul (4.8-10.8); WHITE BLOOD COUNT 8.4 10^3/ul (4.8-10.8)
[2016-05-12 07:33] LABS: ALBUMIN 3.6 g/dl (3.3-4.9); POTASSIUM 3.8 mmol/L (3.5-5.1)
[2016-05-12 07:36] LABS: CREATININE 0.89 mg/dl (0.61-1.24)
[2016-05-12 07:37] LABS: CALCIUM 9.3 mg/dl (8.4-10.2); MAGNESIUM 1.9 mg/dl (1.7-2.5); PHOSPHORUS 4.3 mg/dl (2.5-4.9)
[2016-05-12 07:38] LABS: CONDITION 1; LH ANALYZER COMMENTS 1
[2016-05-12] MEDS: CLOPIDOGREL 75 MG TAB PO SCH (08:45)
[2016-05-12] MEDS: BENZTROPINE 1 MG TAB PO SCH ×2 (08:45→20:10)
[2016-05-12] MEDS: DOCUSATE SODIUM 100 MG CAP PO SCH ×2 (08:45→20:10)
[2016-05-12] MEDS: FAMOTIDINE 20 MG TAB PO SCH ×2 (08:45→20:10)
--- NOTE | 2016-05-12 11:08 | HP ---
DATE OF ADMISSION: 05/11/2016 CHIEF COMPLAINT: Left-sided weakness. HISTORY OF PRESENTING COMPLAINT: Mr. Mauricio is a 60-year-old male who was recently discharged from [facility] facility 05/06/2016 after he had suffered a cerebrovascular accident. At that time his stroke wa s confirmed by MRI to be in right basal ganglia, external capsule, and posterior florez radiata. He was optimized medically, seen by neurology. He was also assessed by physical therapy, and then dis charged in stable condition on a good combination of drugs. It is unclear if patient has been nonco mpliant with therapy, but he was changed from aspirin to Plavix. The patient was also noted to be a marijuana smoker and cessation was recommended. The patient does admit that he continues to smoke; however. He presents today with worsening left-sided weakness, and a CT scan in the emergency room is concerning for another acute stroke in his carlee, and he is being admitted again for neurology re view and further management. PAST MEDICAL HISTORY: 1. Previous CVA x2 now. 2. Chronic bipolar paranoid schizophrenia, controlled on medications. SURGICAL HISTORY: Patient has had umbilical hernia repair. ALLERGIES: HE HAS NO KNOWN DRUG ALLERGIES. SOCIAL HISTORY: The patient continues to smoke tobacco as well as marijuana. Denies alcohol use, h owever. PHYSICAL EXAMINATION VITAL SIGNS: Temperature 98.5, pulse is 91, respirations 16, blood pressure 136/93, saturations 100 % on room air. GENERAL: Today on examination the patient was alert and able to participate in history taking. HEENT: Head is normocephalic. Pupils equal, round, and reactive. Mucous membranes are moist. Pos terior pharynx clear of erythema and exudate. NECK: Supple. CHEST: Clear. CARDIOVASCULAR: S1 and S2 without murmurs. ABDOMEN: Soft, nontender, nondistended. EXTREMITIES: Lower extremities negative for edema, but patient with significant left-sided hemipare sis and almost complete hemiplegia in both upper and lower extremities. NEUROLOGICAL: Patient had normal speech and was not confused. LABORATORY VALUES: His laboratories were reviewed and so far we have a normal CBC. His BUN was sli ghtly elevated at 22. His troponin was negative. EKG was reviewed by myself, showed normal sinus rhythm at 81 beats per minute, without ST elevation. CT of the brain did show resolution of the previously diagnosed acute right basal ganglia, right cor liliane radiata, and lacunar infarct with hypoattenuation of the CT now seen, and there is hypoatt enuation in the right carlee which is new from prior, could be due to an artifact, but a infarct is no t excluded. Recommend MRI of brain for further evaluation. Mild chronic microvascular disease and intracranial atherosclerosis. His chest x-ray reviewed by myself and did not show any acute cardiopulmonary abnormalities. IMPRESSION: 1. Possible recurrent cerebrovascular accident on the left side. 2. Continued tobacco abuse. 3. Uncontrolled hypertension. 4. Marijuana use. 5. Chronic paranoid schizophrenia, stable, with patient denying suicidal or homicidal ideation. 6. Dyslipidemia. 7. Concerns for possible noncompliance with therapy. PLAN OF CARE: Resume his previous medications at the regimen he was discharged home on. We will re -consult also will repeat MRI. We are also going to get a CT angiogram of his head and neck to see if there is a thrombus or clot causing this recurrent stroke. Even though he had a negative MRA of the head and neck in the past admission, this was also reviewed again and further interventi ons will depend on our findings. Again, he will be reevaluated by physical therapy and will monitor ed on telemetry as well. Dictated By: DAVE RAY MD, BA/NIYAH Conf#: [id number] DID#: [id number]
--- NOTE | 2016-05-12 14:07 | PN ---
Date/Time of Note Date/Time of Note DATE: 05/12/16 TIME: 14:01 Assessment/Plan VTE Prophylaxis VTE Prophylaxis Intervention: SCD's Lines/Catheters IV [facility]ter [facility]from [facility] Saline [facility] Urinary Cath still in place: No Assessment/Plan Assessment/Plan 1. Recurrent cerebrovascular accident 2. Continued tobacco abuse. 3. Hypertension: controlled 4. Marijuana use. 5. Chronic paranoid schizophrenia, stable, with patient denying suicidal or homicidal ideation. 6. Dyslipidemia. PLAN Cont supportive care Continue current meds and await Neurology review if any further recs Tobacco cessation counselling done and will continue to be reinforced throughout hospitalization. Resume home psych meds ARU Eval Subjective 24 Hr Interval Summary Free Text/Dictation Patient seen and examined. worried about complete flaccidity LUE Exam/Review of Systems Vital Signs Vitals Vital Signs Date Time Temp Pulse Resp B/P Pulse Ox O2 Delivery O2 Flow Rate FiO2 05/12/16 13:31 90 05/12/16 11:51 98.0 20 125/76 97 05/11/16 18:30 Room Air Intake and Output 05/11/16 05/11/16 05/12/16 14:59 22:59 06:59 Intake Total 80 ml Output Total 100 ml Balance -20 ml Exam Constitutional: alert, oriented Head: atraumatic, normocephalic ENMT: mucosa pink and moist Respiratory: clear to auscultation Cardiovascular: regular rate and rhythm Gastrointestinal: non-tender, soft Neurological: focal weakness Results Result Diagram: 05/12/16 0616 05/12/16 0616 Results 24 hrs Laboratory Tests Test 05/11/16 14:30 05/11/16 15:29 05/11/16 22:05 05/12/16 06:16 Activated Partial Thromboplast Time 29.3 Anion Gap 14 15 Basophils # 0.1 0.0 Basophils % 1.3 0.3 Blood Morphology Comment Blood Urea Nitrogen 22 H 20 Calcium Level 9.7 9.3 Carbon Dioxide Level 30 25 Chloride Level 102 105 Creatinine 0.97 0.89 Eosinophils # 0.1 0.2 Eosinophils % 1.3 1.9 Glucose Level 90 96 Hematocrit 44.6 41.2 L Hemoglobin 14.9 13.8 L Hemoglobin A1c 5.8 INR International Normalized Ratio 0.93 Lymphocytes # 1.8 1.6 Lymphocytes % 21.9 19.3 Mean Corpuscular Hemoglobin 31.0 31.3 Mean Corpuscular Hemoglobin Concent 33.5 33.6 Mean Corpuscular Volume 92.7 93.1 Mean Platelet Volume 8.0 8.1 Monocytes # 0.9 0.8 Monocytes % 10.9 9.8 Neutrophils # 5.4 5.8 Neutrophils % 64.6 68.7 Nucleated Red Blood Cells # 0.0 0.0 Nucleated Red Blood Cells % 0.0 0.0 Platelet Count 239 232 Potassium Level 4.1 3.8 Prothrombin Time 12.5 Prothrombin Time Ratio 1.0 Red Blood Count 4.81 4.42 L Red Cell Distribution Width 14.7 H 14.6 H Sodium Level 142 141 Troponin I < 0.012 White Blood Count 8.4 8.4 Bedside Glucose 88 Urine Amphetamines Screen NEGATIVE Urine Barbiturates NEGATIVE Urine Benzodiazepines Screen NEGATIVE Urine Bilirubin NEGATIVE Urine Cannabinoids POSITIVE Urine Clarity CLEAR Urine Cocaine Screen NEGATIVE Urine Color LT. YELLOW Urine Glucose NEGATIVE Urine Hemoglobin TRACE Urine Ketones NEGATIVE Urine Leukocyte Esterase NEGATIVE Urine Microscopic RBC 2-5 Urine Microscopic WBC 0-2 Urine Nitrite NEGATIVE Urine Opiates Screen NEGATIVE Urine Specific Downing 1.010 Urine Total Protein NEGATIVE Urine Urobilinogen 1.0 E.U./dL Urine pH 6.0 Albumin 3.6 Magnesium Level 1.9 Phosphorus Level 4.3 Medications Medications Current Medications Atorvastatin Calcium (Lipitor) 80 mg HS PO Last administered on 05/11/16 23:45 ; Admin Dose 80 MG; Start 05/11/16 at 21:00 Benztropine Mesylate (Cogentin) 2 mg BID PO Last administered on 05/12/16 08: 45; Admin Dose 2 MG; Start 05/11/16 at 21:00 Clopidogrel Bisulfate (plaVIX) 75 mg DAILY PO Last administered on 05/12/16 08 :45; Admin Dose 75 MG; Start 05/12/16 at 09:00 Hydralazine HCl (Apresoline) 10 mg Q6H PRN IV sbp >180mmhg; Start 05/11/16 at 19:30 Docusate Sodium (Colace) 100 mg BID PO Last administered on 05/12/16 08:45; Admin Dose 100 MG; Start 05/11/16 at 21:00 Famotidine (Pepcid) 20 mg BID PO Last administered on 2/21/17at 08:45; Admin Dose 20 MG; Start 05/11/16 at 21:00 Ondansetron HCl (Zofran Inj) 4 mg Q6H PRN IV NAUSEA AND/OR VOMITING; Start at 19:30 Acetaminophen (Tylenol Tab) 650 mg Q6H PRN PO PAIN AND OR ELEVATED TEMP; Start 05/11/16 at 19:30 Procedures Procedures PROCEDURE: MRI Brain without contrast. CLINICAL INDICATION: Recurrent stroke TECHNIQUE: An MRI of the brain was performed on a high resolution hi- definition MRI scanner utilizing the following sequences: Sagittal and axial T1 weighted, axial T2 weighted, axial T2 FLAIR, axial diffusion weighted with ADC mapping, an coronal GRE. COMPARISON: 05/04/2016 brain MRI and 05/03/[address] FINDINGS: On diffusion weighted sequences, extension of the previously noted acute infarct in the right posterior florez radiography and external capsule is now noted in the right posterior limb of the internal capsule and the right cortical spinal tracts in the right cerebral peduncle. No definite evidence for acute infarcts in the carlee are noted. No hypointense signal abnormalities are seen on the GRE images to suggest the presence of blood degradation products. No extra-axial fluid collections are present. The ventricles and sulci are age appropriate. Mild diffuse volume loss is present. On the FLAIR and T2-weighted sequences, punctate foci of hyperintensity are present in the bilateral centrum semiovale and periventricular white matter as well as the carlee compatible with mild chronic microvascular ischemic disease. No evidence of intracranial hemorrhage, mass effect or midline shift is present. Normal flow voids are visible in the proximal intracranial arteries and dural sinuses, indicating patency. The scalp and calvarium are remarkable for a left frontal scalp 2.3 cm subcutaneous nodule. The calvarium is normal. The bilateral orbits are normal. The bilateral paranasal sinuses are clear. The bilateral mastoid air cells and middle ear cavities demonstrate incomplete pneumatization and normal bilateral middle ear cavities. IMPRESSION: 1. Acute extension of ischemic infarct now noted in the right posterior limb of the internal capsule and cerebral peduncle. 2. Acute or early subacute infarct in the right posterior florez radiography and external capsule and superior basal ganglia as noted on prior MRI. 3. Mild chronic microvascular ischemic disease and mild diffuse volume loss. 4. Left frontal 2.3 cm subcutaneous nodule. A call report was made to Dr. Remy at 05/11/2016 9:06:20 PM following the completion of the examination by the undersigned. RPTAT: HDC .Jeana Ba MD, Date Time Electronically viewed and signed by .Jeana Ba MD, MD on 05/11/2016 21: 09 .C/ CC: DAVE RAY PROCEDURE: CTA head. CLINICAL INDICATION: Focal neurologic deficit. TECHNIQUE: Direct spiral 0.63 mm axial sections were obtained through the intracranial vasculature with the use of 90 cc of Omnipaque 350 nonionic intravenous contrast material. Coronal and sagittal as well as 3-D maximal intensity projection reformations were obtained. The images were reviewed on a PACS workstation. CTDIvol: 48.22, 33.60 mGy. DLP: 651.10 mGy-cm. COMPARISON: MRA brain dated 05/04/2016, brain MRI dated 05/11/2016. FINDINGS: The bilateral ICAs, ACAs, MCAs, and practical ministries professor are widely patent. Minimal calcified atherosclerotic plaque is identified along the cavernous left ICA. The vertebrobasilar system is patent. 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 Bilateral PCOMs are visualized, right larger than left. The visualized cerebellar arteries are unremarkable. No intracranial aneurysm or vascular malformation is seen. IMPRESSION: 1. No significant stenosis or occlusion of the major intracranial arteries. The basilar artery is hypoplastic, however bilateral PCOMs are visualized, right larger than left. 2. No aneurysm or vascular malformation. RPTAT: HTAR .Kael Tracy MD, Date Time Electronically viewed and signed by .Kael Tracy MD, on 05/11/2016 21:17 PT EVALUATION Pt is a 60 y.o. male recently admitted for CVA with L hemiparesis who returned to [facility] secondary to progressively worsening L hemiparesis. PMH: CVA, schizophrenia, HTN, DM, umbilical hernia. MRI reveals:acute extension of ischemic infarct in the right posterior limb of the internal capsule and cerebral peduncle AND acute/subacute infarct in the right posterior florez radiography and external capsule and superior basal ganglia as noted on prior MRI. Pt agreeable to work with PT. PLOF: Pt per, lives in a correction home in the [place]. Was I with all activities. Was transferred to a SNF and worked with PT but reports unable to walk. Precautions: L hemiparesis, High fall risk, 2PA during gt CLOF: Pt drowsy but cooperative and oriented x 4. Able to follow commands well. Denies pain. Refer to eval for details. Pt presents with grossly 0-1/5 strength in L UE/L LE. No facial weakness noted but noted tongue protrusion deviated to the L with mild slurring. Denies vision impairment or difficulty swallowing. Sensation intact. Good R UE/LE strength. No PROM deviations noted in extremities. Pt educated on safety, POC, recommendations, bed mob, gt technique with good return understanding. Pt req min A with bed mob (HOB elevated/BR used) towards L. Able to achieve attain upright posture with R UE support and able to cross midline. Noted to be soiled. PIANO ACCOMPANIST present and assisted in changing diaper/linen while pt standing along EOB with R UE holding onto walker + mod BUTTING SAW OPERATOR/L knee blocked. 2PA not present to assist with gt. Sidestepping only x 2': very unsteady, + L knee buckling. High fall risk and not cleared to perform OOB with nursing. Pt returned back to bed in semi mcleod with L UE propped up/bed alarm activated/call light within reach. Pt's mobility limited by L hemiparesis, gt/balance impairment. Recommend: knee immobilizer/hemiwalker for gt assessment. RNDaya, notified of recommendations. Pt will be seen daily 6xwk for LOS or until goals met. D/C recommendations: Pt is a good candidate for ARU and is highly motivated to regain mobility. DME needs: likely hemiwalker/knee immobilizer, 3n1 commode DAVE RAY May 12, 2016 14:07
--- NOTE | 2016-05-12 19:19 | CONS ---
DATE OF ADMISSION: 05/11/2016 DATE OF CONSULTATION: TYPE OF CONSULTATION: Neurology Thank you, Dr. Marie, for your kind referral for evaluation of stroke. The patient is known to me. I saw him about 7-8 days ago. He is a 60-year-old gentleman who has history of hypertension, dyslipidemia, previous history of stroke, paranoid schizophrenia, and who developed mild left-sided weakness about 7 days ago. MRI of the brain shows a small florez radiata and basal ganglia ischemic stroke. Patient had MRA of the brain and neck. Brain MRA was negative. MRA of the neck shows a low signal levels internal carotid artery bulbs bilaterally, likely flow related. So, this time, he had CT angio of the neck, which did not show any significant stenosis or occlusion. Patient stated that his weakness worsened drastically last night, and he presented and had another MRI today, which shows extension of ischemic infarct, which now noted on the right posterior limb of the internal capsule and cerebral peduncle. Since last admission, he is on Plavix and Lipitor 80 mg. SOCIAL HISTORY: Cigarette smoker. No alcohol or drug use. ALLERGIES: NONE. FAMILY HISTORY: Noncontributory. MEDICATIONS: Prior to admission: 1. Plavix. 2. Amlodipine. 3. Atorvastatin. 4. . 5. Benztropine. 6. Hydrochlorothiazide. CURRENT MEDICATIONS: Currently, he is on Prolixin, Plavix 75, Lipitor, Cogentin , Pepcid. PHYSICAL EXAMINATION: VITAL SIGNS: Temperature 98.0, 92 pulse, 20 respiratory rate, 142/82 blood pressure. GENERAL: Not in acute distress, lying in bed. HEENT: Normocephalic, atraumatic head. NECK: No carotid bruits. No thyromegaly. LUNGS: Clear to auscultation bilaterally. CARDIAC: Normal cardiac rhythm and sounds. ABDOMEN: Soft, nontender. EXTREMITIES: No cyanosis, clubbing, or edema. NEUROLOGIC: He is awake, alert, and oriented x3 with fluent speech. Cranial nerve examination shows intact visual perales bilaterally. Pupils reactive from 3 to 2 mm bilaterally. Extraocular movements intact without nystagmus. No facial weakness. Normal sensation on the face. Tongue protrudes midline. Palate elevates symmetrically. Motor strength examination shows left-sided weakness in upper and lower extremities, somewhat decreased tone -3/5. Decreased tone, normal bulk. Sensory examination intact to light touch and pain. Deep tendon reflexes 2+ throughout. Upgoing toe on the left, downgoing on the right. Coordination preserved on the right. [id number] testing. No dysmetria or tremor. Gait was not assessed, of course. IMPRESSION: Extension of acute ischemic stroke, which happened 1 week ago. Now , patient presented with worsening of left-sided weakness. Continue to keep euglycemic, keep normotensive. Avoid hypotension. I would add baby aspirin to his Plavix. Continue high dose Lipitor. Probably, he will need acute rehabilitation. Thank you very much for this interesting consultation. Dictated By: CHRIS CURRY/NIYAH Conf#: [id number] DID#: [id number] MTDD
[2016-05-12] MEDS: ATORVASTATIN 80 MG TAB PO SCH (20:10)
[2016-05-12] MEDS: FLUPHENAZINE 5 MG TAB PO SCH (20:18)
[2016-05-13] VITALS (10 sets, daily range): BP systolic 117–143; BP diastolic 72–95; PULSE 72–100; RESP 16–19
[2016-05-13] MEDS ORDERED: ASPIRIN (EC) 81 MG TAB PO SCH (09:00)
[2016-05-13] MEDS: FLUPHENAZINE 5 MG TAB PO SCH (09:00)
[2016-05-13] MEDS: DOCUSATE SODIUM 100 MG CAP PO SCH (09:09)
[2016-05-13] MEDS: CLOPIDOGREL 75 MG TAB PO SCH (09:09)
[2016-05-13] MEDS: BENZTROPINE 1 MG TAB PO SCH (09:09)
[2016-05-13] MEDS: FAMOTIDINE 20 MG TAB PO SCH (09:09)
[2016-05-13 10:05] LABS: BASOPHILS % 0.2 % (0.0-2.0); EOSINOPHILS # 0.1 10^3/ul (0.0-0.5); HEMOGLOBIN 13.6 g/dl (14.0-18.0); LYMPHOCYTES # 1.2 10^3/ul (0.8-2.9); LYMPHOCYTES % 12.7 % (15.0-51.0); MEAN CORPUSCULAR HEMOGLOBIN 31.5 pg (29.0-33.0); MEAN CORPUSCULAR HGB CONC 33.9 g/dl (32.0-37.0); MEAN CORPUSCULAR VOLUME 92.9 fl (82.0-101.0); MONOCYTE # 0.8 10^3/ul (0.3-0.9); MONOCYTES % 8.2 % (0.0-11.0); NEUTROPHIL # 7.3 10^3/ul (1.6-7.5); NEUTROPHILS % 77.9 % (39.0-77.0); PLATELET COUNT 244 10^3/UL (140-440); RED BLOOD COUNT 4.31 10^6/ul (4.70-6.10); RED CELL DISTRIBUTION WIDTH 14.1 % (11.5-14.5); UNCORRECTED WBC 9.4 10^3/ul (4.8-10.8); WHITE BLOOD COUNT 9.4 10^3/ul (4.8-10.8)
[2016-05-13 10:15] LABS: CONDITION 1
[2016-05-13 10:18] LABS: ALBUMIN 3.6 g/dl (3.3-4.9); POTASSIUM 3.8 mmol/L (3.5-5.1)
[2016-05-13 10:21] LABS: CREATININE 0.97 mg/dl (0.61-1.24); PHOSPHORUS 3.7 mg/dl (2.5-4.9)
[2016-05-13 10:22] LABS: CALCIUM 9.2 mg/dl (8.4-10.2)
--- NOTE | 2016-05-13 15:21 | PN ---
DATE: 05/13/2016 SUBJECTIVE DATA: Denies any pain. Still having left-sided weakness. Vital signs are stable. OBJECTIVE DATA: VITAL SIGNS: Temperature 98.0, pulse rate 87, respiratory rate 18, blood pressure 143/97, oxygen saturation 97% on room air. GENERAL: This is an elderly 60-year-old -[place] male lying in bed in no apparent distress. HEENT: Head normocephalic and atraumatic. Eyes: Anicteric sclerae. Conjunctivae clear. ENT: Nasal septum is midline. Oral mucosa is moist. NECK: Supple. No JVD noticed. RESPIRATORY: Bilaterally clear to auscultation. No adventitious breath sounds heard. No use of accessory muscles of respiration. CARDIAC: Regular rate and rhythm. No murmurs heard. ABDOMEN: Soft, nontender and nondistended. Bowel sounds positive in all 4 quadrants. GENITOURINARY: Deferred. EXTREMITIES: No cyanosis, no clubbing, no edema. Peripheral pulses are palpable. NEUROLOGIC: The patient is awake, alert and oriented x3. Pupils are equal and reacting. Motor strength examination shows left-sided weakness in upper and lower extremities of approximately 3/5. LABORATORY AND DIAGNOSTIC DATA: WBC 9.4, hemoglobin 13.6, hematocrit 40.0, platelet count 244. Sodium 140, potassium 3.8, chloride 103, carbon dioxide 20 , anion gap 16, BUN 22, creatinine 0.97, glucose 128, calcium 9.2, phosphorus 3.7. ASSESSMENT AND PLAN: 1. Extension of acute ischemia stroke which happened 1 week ago. Brain MRI showing acute extension of ischemic infarct in the right posterior limb of the internal capsule and cerebral peduncle. Continue the patient on aspirin and Plavix. Continue high dose statins. Continue rehabilitation. 2. Essential hypertension. Continue antihypertensives. 3. Paranoid schizophrenia. Continue antipsychotics. 4. Dyslipidemia. Continue statins. 5. Marijuana abuse. Cessation advised. 6. Fluid, electrolytes and nutrition. Continue mechanical soft diet. 7. Deep venous thrombosis prophylaxis with bilateral sequential compression devices. 8. Gastrointestinal prophylaxis. Histamine 2 receptor blockers. PLAN: Continue physical therapy, occupational therapy and speech therapy. Acute rehabilitation evaluation ordered. The case was discussed with Dr. Ray. MICHELLE RAY MD, AM/NIYAH Conf#: [id number] [facility]#: [id number] MTDD
--- NOTE | 2016-05-13 15:58 | PDOCDIS ---
Discharge Instructions DIAGNOSIS Discharge Diagnosis: Acute stroke CONDITION Patient Condition: Stable HOME CARE INSTRUCTIONS: Diet Instructions: Low Fat /Cholesterol OTHER ORDERS: Other Orders: 1. Medications as per medication reconciliation. 2. Activities as per the discretion of physical therapy. 3. Mechanical soft, low-cholesterol diet. Aspiration precautions. MICHELLE CORTES NP May 13, 2016 15:58
[2016-05-13] MEDS ORDERED: FAMO20TA18 PO (15:59)
[2016-05-13] MEDS ORDERED: AMLO-147 PO (15:59)
[2016-05-13] MEDS ORDERED: ASPI-664 PO (15:59)
[2016-05-13] MEDS ORDERED: PROLIX5 PO (15:59)
--- NOTE | 2016-05-13 17:40 | DS ---
DATE OF ADMISSION: 05/11/2016 DATE OF DISCHARGE: 05/13/2016 DIAGNOSES: 1. Extensive acute ischemic stroke with left-sided hemiparesis. 2. Essential hypertension. 3. Paranoid schizophrenia. 4. Dyslipidemia. 5. Marijuana abuse. CONSULTATIONS: Dr. Chris Contreras, Neurology. HOSPITAL COURSE: This is a 60-year-old -[place] male who was recently discharged from [facility] on 05/06/2016 after he had suffered a cerebrovascular accident. At that time, the stroke was confirmed by MRI to be in the right basal ganglia, external capsule, and posterior florez radiata. He was optimized medically and was seen by neurology. The patient was discharged to a [facility] facility as per the recommendations of physical therapy. The patient came back to the emergency room on 05/11/2016 because of worsening left-sided weakness. The patient verbalized that his left sided weakness has been getting worse. The patient underwent a CT scan of the brain in the emergency room that was concerning for an acute stroke in the carlee. The patient underwent a brain MRI that confirmed acute extensive ischemic infarct noted on the right posterior limb, both internal capsule and cerebral peduncle with subacute infarct in the right posterior florez radiata and external capsule and superior basal ganglia. Provided the patient's history of present illness, his comorbidities, and the diagnostic findings, a clinical decision was made to admit the patient to inpatient setting to have him further evaluated. The patient was admitted to inpatient telemetry floor. A neurology consult was called on this patient. Neurology saw and evaluated the patient. Neurology optimized the patient's medications. The patient was started on dual antiplatelet therapy instead of Plavix alone. Neurology recommended tight control of the patient's blood pressure, and keep the patient euglycemic. The patient was seen and evaluated by physical therapy. Physical therapy recommended [facility] facility placement versus acute rehabilitation. Hence, acute rehabilitation evaluated the patient and the patient will be discharged to [facility] rehabilitation facility. The patient has underlying essential hypertension. The patient was on antihypertensives for the same. The patient has underlying dyslipidemia. The patient was maintained on high dose statins. The patient has underlying paranoid schizophrenia. The patient was maintained antipsychotics. The patient had a stable hospital course. Today, the patient is stable to be discharged to [facility] for further rehabilitation. DISCHARGE DISPOSITION/PLAN: The patient will be discharged to [facility]. The patient will take medications as per medication reconciliation, which are listed below. Activities will be as per the discretion of physical therapy. The patient will follow a mechanical soft, low cholesterol diet. The patient will be maintained on aspiration precautions. DISCHARGE CONDITION: Stable. DISCHARGE MEDICATIONS: 1. Amlodipine 10 mg p.o. daily. 2. Aspirin 81 mg p.o. daily. 3. Famotidine 20 mg p.o. b.i.d. 4. Fluphenazine 5 mg p.o. b.i.d. 5. Atorvastatin 80 mg p.o. at bedtime. 6. Benztropine mesylate 2 mg p.o. b.i.d. 7. Plavix 75 mg p.o. t.i.d. PERTINENT LABORATORY AND DIAGNOSTIC DATA: 1. Chest x-ray upon admission. No evidence of active cardiopulmonary disease. 2. Brain CT scan. Evolution of the previously diagnosed subacute right basal ganglia/coronary radiata lacunar infarct with hypoattenuation of CT. 3. Brain MRI. Acute extensive ischemic infarct now noted in the right posterior limb of the internal capsule and cerebral peduncle. Acute or early subacute infarct in the right posterior florez radiata in the external capsule and superior basal ganglia. 4. Mild chronic microvascular ischemic disease, mild diffuse volume loss. Left frontal 2.3 cm subcutaneous nodule. 5. Head CTA. No significant stenosis or occlusion of the major intracranial arteries. 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 No aneurysm or vascular malformation. 6. Latest CBC: WBC 9.4, hemoglobin 13.6, hematocrit 40.0, platelet count 244. 7. Latest BMP: Sodium 140, potassium 3.8, chloride 103, carbon dioxide 25, anion gap 15, BUN 22, creatinine 0.97, glucose 128. 8. Hemoglobin A1c 5.8. 9. Urine drug toxicology. Positive for cannabinoids. At this time, we would like to thank Dr. Reardon for seeing the patient and providing clinical recommendations. The case and management of this patient was fully discussed with Dr. Ray. Approximately 40 minutes was spent on coordinating discharge on this patient. MICHELLE RAY MD AM/NTS Conf#: [id number] DID#: [id number] CC: CHRIS CONTRERAS MD;*EndCC* MTDD
== END 2016-05-13 18:10 | DRG 65 ==
LOC: E/R 14:26 → MS4 15:46
PROVIDERS: ADMIT Family Medicine; ATTEND Family Medicine
DX: I63.8 Other cerebral infarction (principal); F20.0 Paranoid schizophrenia; G81.94 Hemiplegia, unspecified affecting left nondominant side; I10 Essential (primary) hypertension; I69.354 Hemiplegia and hemiparesis following cerebral infarction affecting left non-dominant side; F12.90 Cannabis use, unspecified, uncomplicated; E78.5 Hyperlipidemia, unspecified; F17.210 Nicotine dependence, cigarettes, uncomplicated; Z79.82 Long term (current) use of aspirin; Z79.02 Long term (current) use of antithrombotics/antiplatelets; I67.89 Other cerebrovascular disease
CPT/HCPCS: 36415; 70450; 70496; 70551; 71010; 80048; 80069; 80307; 81001; 81003; 82962; 83036; 83735; 84484; 85025; 85610; 85730; 87081; 92526; 92610; 93005; 96374; 96375; 97110; 97116; 97162; 97530; J1200; J1630; J2060; Q9967

== ENCOUNTER 2016-05-13 17:47 | Inpatient (IN) | payer MEDICARE, MEDICAID ==
[~2016-05-13] VITALS: Ht 167.6 cm; Wt 64.4 kg
[~2016-05-13 17:47] MED LIST changes: +AMLO-147 PO; +ASPI-664 PO; +FAMO20TA18 PO; +PROLIX5 PO; -[UNRECOGNIZED DRUG - CODE] IM
[2016-05-13 20:00] VITALS: BP 152/90; RESP 18
[2016-05-13] MEDS: FLUPHENAZINE 5 MG TAB PO SCH (22:16)
[2016-05-13] MEDS: BENZTROPINE 1 MG TAB PO SCH (22:16)
[2016-05-13] MEDS: DOCUSATE SODIUM 100 MG CAP PO SCH (22:16)
[2016-05-13] MEDS: ATORVASTATIN 80 MG TAB PO SCH (22:16)
[2016-05-13] MEDS: FAMOTIDINE 20 MG TAB PO SCH (22:17)
[2016-05-13 22:19] VITALS: BP 147/89; PULSE 76
[2016-05-13] MEDS: AMLODIPINE 10 MG TAB PO SCH (22:19)
[2016-05-13 22:23] VITALS: Ht 167.6 cm; Wt 64.4 kg
[2016-05-13] MEDS ORDERED: MAGNESIUM HYDROXIDE 30ML CUP PO PRN (23:30)
[2016-05-13] MEDS ORDERED: GLUCAGON 1 MG INJ IM PRN (23:30)
[2016-05-13] MEDS ORDERED: LACTULOSE 30ML CUP PO PRN (23:30)
[2016-05-13] MEDS ORDERED: GLUCOSE GEL 15 GRAM TUBE PO PRN ×2 (23:30)
[2016-05-13] MEDS ORDERED: GLUCOSE GEL 15 GRAM TUBE BUCCAL PRN (23:30)
[2016-05-13] MEDS ORDERED: BISACODYL 10 MG SUPP PR PRN (23:30)
[2016-05-13] MEDS ORDERED: DEXTROSE 50% 50 ML SYRINGE IV PRN ×2 (23:30)
[2016-05-14] MEDS ORDERED: ACCUCHECK AT 2AM (Patients on SS coverage) XX SCH (02:00)
[2016-05-14 02:01] LABS: ADD UMIC YES; URINE BILIRUBIN (Dip) NEGATIVE (NEGATIVE); URINE BLOOD (Dip) TRACE (NEGATIVE); URINE COLOR LT. YELLOW (YELLOW); URINE GLUCOSE (Dip) NEGATIVE (NEGATIVE); URINE KETONES (Dip) NEGATIVE (NEGATIVE); URINE LEUKOCYTE ESTERASE (Dip) NEGATIVE (NEGATIVE); URINE NITRITE (Dip) NEGATIVE (NEGATIVE); URINE TOTAL PROTEIN (Dip) NEGATIVE (NEGATIVE); URINE UROBILINOGEN (Dip) 0.2 E.U./dL (0.1-1.0)
[2016-05-14 02:20] LABS: SQUAMOUS EPITHELIAL CELL,UR OCCASIONAL; URINE RBCS 0-2 /HPF (0)
[2016-05-14] MEDS ORDERED: Insulin NOVOLOG SS MILD Algorithm (SS with meals and bedtime) SC SCH (07:05)
[2016-05-14 07:30] VITALS: BP 174/100; RESP 18
[2016-05-14 08:09] LABS: ALBUMIN 3.7 g/dl (3.3-4.9)
[2016-05-14 08:10] LABS: POTASSIUM 4.1 mmol/L (3.5-5.1)
[2016-05-14 08:12] LABS: ALBUMIN/GLOBULIN RATIO 1.02; BILIRUBIN,INDIRECT 0.1 mg/dl (0-1.1); BILIRUBIN,TOTAL 0.1 mg/dl (0.2-1.3); CREATININE 0.82 mg/dl (0.61-1.24); TOTAL PROTEIN 7.3 g/dl (6.1-8.1)
[2016-05-14 08:13] LABS: CALCIUM 9.1 mg/dl (8.4-10.2)
[2016-05-14 08:14] LABS: BASOPHILS % 0.4 % (0.0-2.0); EOSINOPHILS # 0.1 10^3/ul (0.0-0.5); EOSINOPHILS % 1.4 % (0.0-7.0); HEMATOCRIT 40.7 % (42.0-52.0); HEMOGLOBIN 13.5 g/dl (14.0-18.0); LYMPHOCYTES # 1.7 10^3/ul (0.8-2.9); LYMPHOCYTES % 20.8 % (15.0-51.0); MEAN CORPUSCULAR HEMOGLOBIN 30.2 pg (29.0-33.0); MEAN CORPUSCULAR HGB CONC 33.2 g/dl (32.0-37.0); MEAN CORPUSCULAR VOLUME 91.1 fl (82.0-101.0); MEAN PLATELET VOLUME 9.4 fl (7.4-10.4); MONOCYTE # 0.9 10^3/ul (0.3-0.9); MONOCYTES % 10.3 % (0.0-11.0); NEUTROPHIL # 5.5 10^3/ul (1.6-7.5); NEUTROPHILS % 66.7 % (39.0-77.0); PLATELET COUNT 282 10^3/UL (140-415); RED BLOOD COUNT 4.47 10^6/ul (4.70-6.10); RED CELL DISTRIBUTION WIDTH 13.7 % (11.5-14.5); WHITE BLOOD COUNT 8.3 10^3/ul (4.8-10.8)
[2016-05-14] MEDS ORDERED: INSULIN GLARGINE [LANtus] 3 ML PEN SC SCH (09:00)
[2016-05-14] MEDS: FLUPHENAZINE 5 MG TAB PO SCH ×2 (09:33→21:48)
[2016-05-14] MEDS: BENZTROPINE 1 MG TAB PO SCH ×2 (09:33→21:46)
[2016-05-14] MEDS: DOCUSATE SODIUM 100 MG CAP PO SCH ×2 (09:33→21:46)
[2016-05-14] MEDS: CLOPIDOGREL 75 MG TAB PO SCH (09:34)
[2016-05-14] MEDS: AMLODIPINE 10 MG TAB PO SCH (09:34)
[2016-05-14] MEDS: ASPIRIN (EC) 81 MG TAB PO SCH (09:34)
[2016-05-14] MEDS: FAMOTIDINE 20 MG TAB PO SCH ×2 (09:34→21:48)
--- NOTE | 2016-05-14 12:40 | CONS ---
DATE OF ADMISSION: 05/13/2016 DATE OF CONSULTATION: 05/14/2016 REHABILITATION IMPAIRMENT CATEGORY: 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 ACTIVE COMORBIDITIES: 1. Hypertension. 2. Anemia. 3. Dyslipidemia. 4. Impairments in self-care, mobility and cognition. HISTORY OF PRESENT ILLNESS: The patient is a 60-year-old left-handed gentleman who had presented w ith a mild left-sided weakness. [facility]; however, noted to have significant worsening and was readmitted. MRI demonstrated an extension of his ischemic infar ct, now with the right posterior limb of the internal capsule, CVA. Patient also noted to have sig nificant dysphagia. The patient has been cleared to transfer to the rehabilitation unit for compreh ensive interdisciplinary rehab care. FUNCTIONAL HISTORY: Prior to the recent events, he was independent in self-care tasks and mobility. Currently, he requires maximal assist for self-care and maximal assist for mobility tasks. SOCIAL HISTORY: The patient reports living at home. He does have [facility] benefits and does want to have follow[facility] with the [facility]. PAST MEDICAL HISTORY: 1. Hypertension. 2. Paranoid schizophrenia. 3. Dyslipidemia. CURRENT MEDICATIONS: 1. Aspirin 81 mg p.o. daily. 2. Lipitor 80 mg p.o. at bedtime. 3. Cogentin 2 mg p.o. b.i.d. 4. Plavix 75 mg p.o. daily. 5. Colace 100 mg p.o. b.i.d. 6. Pepcid 20 mg p.o. b.i.d. 7. Amlodipine 10 mg p.o. daily. ALLERGIES: THE PATIENT WITH NO KNOWN DRUG ALLERGIES. PHYSICAL EXAMINATION: VITAL SIGNS: The patient is currently afebrile with stable vital signs. HEENT: Extraocular motions are intact. Oropharynx is clear. NECK: Supple. LUNGS: Clear anteriorly. CARDIAC: S1, S2. ABDOMEN: Soft, nontender, positive bowel sounds. NEUROLOGIC: He is awake and alert and oriented x3. He will follow simple 1-step commands. He has tangential speech, but is redirectable. He demonstrates good strength in the right upper and lower extremity. He has trace strength in the left upper extremity. He has antigravity strength in the l eft lower extremity with decreased dorsiflexion. PLAN: The patient has been admitted for comprehensive interdisciplinary acute rehab and is anticipa demetria to tolerate 3 hours of daily therapy in divided doses for at least 5/7 days a week. Treatment p catrachita will include: 1. Physical therapy to focus on bed mobility, transfers, and household ambulation with the goal of having the patient reach standby assist level. 2. Occupational therapy to focus on hygiene, grooming, dressing, bathing, and toileting activities with the goal of having the patient reach standby assist level. 3. Rehabilitation speech therapy for full cognitive assessment retraining and dysphagia management with the goal of having the patient meet nutritional needs by mouth and to return to baseline cognit ion. 4. Rehabilitation nursing for carryover of therapeutic interventions, the goal of continent of bell l and bladder, and the goal of patient education with regard to the aforementioned issues. ESTIMATED LENGTH OF STAY: 14 days. DISPOSITION GOAL: Home. I acknowledge that I performed a full physical examination on this patient within 24 hours of admiss ion to the rehabilitation unit. I believe the patient is a good candidate for comprehensive interdi sciplinary rehab care and is anticipated to make reasonable goals in a reasonable period of time as outlined above. Dictated By: RUFINA CROWLEY/NIYAH Conf#: [id number] DID#: [id number]
[2016-05-14] MEDS: NICOTINE (14 MG/24 HR) PATCH TRANSDERM SCH (18:15)
--- NOTE | 2016-05-14 19:44 | CONS ---
DATE OF ADMISSION: 05/13/2016 DATE OF CONSULTATION: 05/14/2016 TYPE OF CONSULTATION: Cardiology. REASON FOR CONSULTATION: Hypertension. REQUESTING PHYSICIAN: Dr. Berger from the hospitalist service. HISTORY OF PRESENT ILLNESS: Mr. Celis is a 60-year-old male with a history of recent CVA, paranoi d schizophrenia, hypertension, ongoing tobacco usage, dyslipidemia who had been discharged to a [facility] facility and re-presented with left-sided weakness. The patient initially upon arrival was noted to have a mildly elevated diastolic blood pressure with 131/91, temperature 98.4, pulse 89, r espiratory rate 18, saturating 100%. The patient's labs with a white cell count of 8.4, hemoglobin 14.9, a platelet count of 239. A sodium of 142, potassium 4.1, creatinine 0.9, BUN 22. Troponin ne gative. INR 0.93. Tox screen positive for cannabinoids. UA negative. The patient underwent a earl st x-ray revealing no evidence of acute cardiopulmonary abnormalities, a head CT revealing evolution of previously diagnosed subacute right basal ganglia and florez radiata lacunar infarct and a focal hypoattenuation of the right carlee which was new from the prior. The patient underwent a CTA reveal ing no significant stenosis or occlusion in the major intracranial arteries, and a brain MRI reveale d acute extension of ischemic infarct now noted in the right posterior limb of the internal capsule ____ peduncle, acute or early subacute infarct in the right posterior florez ____ external capsule, mild chronic microvascular ischemic disease. The patient was subsequently admitted to the floor, wa s followed by Neurology, was told to be kept normotensive, avoid hypotension and added a baby aspiri n to his Plavix, continued high-dose Lipitor. The patient has now been transferred to inpatient [facility], where he remains at this time. The patient has been noted to have uncontrolled systolic blood p ressures greater than 170 with most recent blood pressure 174/100. The patient denies chest pain, s hortness of breath. PAST MEDICAL HISTORY: As above in HPI. MEDICATIONS CURRENTLY IN HOSPITAL: 1. Carvedilol 3.125 mg p.o. b.i.d. 2. Hydralazine 25 mg q.6 p.r.n. 3. Aspirin 81 mg daily. 4. Plavix 75 daily. 5. Dulcolax p.r.n. 6. Milk of magnesia. 7. Lactulose p.r.n. 8. Cogentin 2 mg b.i.d. 9. Prolixin 5 mg b.i.d. 10. Tylenol p.r.n. 11. Lipitor 80 mg at bedtime. 12. Colace 100 mg b.i.d. 13. Pepcid 20 mg b.i.d. 14. Norvasc 10 mg daily. ALLERGIES: NO KNOWN DRUG ALLERGIES. PAST SOCIAL HISTORY: Positive tobacco, social ETOH. No illicit drug use. FAMILY HISTORY: Negative for sudden cardiac or early CAD. REVIEW OF SYSTEMS: As above in HPI. CONSTITUTIONAL: No fevers, chills. PULMONARY: No current shortness of breath. CARDIOVASCULAR: No current chest pain. GASTROINTESTINAL: No vomiting. GENITOURINARY: No hematuria. MUSCULOSKELETAL: Degenerative joint disease. PSYCHIATRIC: Positive psychiatric history. NEUROLOGIC: CVA with left upper extremity weakness, paralysis. PHYSICAL EXAMINATION: VITAL SIGNS: Temperature of 98.5, blood pressure most recently 174/100, pulse 75, respiratory rate 18, saturating 98%. GENERAL: The patient is alert, awake. No acute distress. NECK: JVP approximately 8 to 9 cm water. CHEST: Fair air movement throughout with mildly decreased breath sounds at bases bilaterally. HEART: Regular rate and rhythm. Normal S1, S2. I/ systolic murmur. Nondisplaced PMI. ABDOMEN: Positive bowel sounds, soft. EXTREMITIES: No pitting edema. Pulses 1+ bilaterally at posterior tibial. LABORATORIES: As above in HPI with most recent from today: White cell count is 8.3, hemoglobin ___ _, platelet count of 282. Sodium 141, potassium 4.1, creatinine of 0.82, BUN 19, AST 25, ALT 42. T roponin negative. IMAGING STUDIES: As above in HPI. No further imaging studies for my review at this time. ELECTROCARDIOGRAM: From the revealing normal sinus rhythm, rate of 72, normal axis, normal int ervals. T-wave flattening in lead aVL and a Q-wave in lead aVL. The patient subsequently admitted to the rehab unit, where he remains at this time. IMPRESSION: 1. Hypertension, uncontrolled. 2. Dyslipidemia. 3. Abnormal electrocardiogram, assess for acute coronary syndrome. 4. History of recent cerebrovascular accident. 5. Ongoing tobacco usage. 6. Schizophrenia. RECOMMENDATIONS: 1. At this time would check serial EKGs, assess for any significant ongoing changes, add a troponin to ensure this patient's EKG abnormalities are chronic in nature and not due to any recent acute co ronary syndrome co-existing with the patient's CVA. 2. Continue the patient's baseline carvedilol with increase and continue the patient's Norvasc and will start patient on a standing DIEGO inhibitor to improve overall systolic blood pressure control, f ollowing closely. 3. Continue the patient smoking cessation. 4. Continue the patient's current statin therapy and adjust according to a fasting lipid panel [facility]. 5. Continue the patient's aspirin and Plavix at this time for prevention of further cardiovascular events. 6. Ongoing PT, OT. 7. The patient is already status post a 2D echo 05/04/2014, at that time revealing a preserved left ventricular ejection fraction of 65% with diastolic dysfunction. Thank you for allowing me to take part in the care of this patient. I will continue to follow along very closely with you with further recommendations to be made as the patient progresses through his inpatient hospital clinical course. Dictated By: JULISSA HINTON/NIYAH Conf#: [id number] DID#: [id number] CC: ANKIT BERGER MD;*EndCC*
[2016-05-14 20:00] VITALS: BP 150/99
--- NOTE | 2016-05-14 20:13 | RADRPT ---
PROCEDURE: XR Chest AP portable CLINICAL INDICATION: Chest pain TECHNIQUE: An AP portable radiograph of the chest was submitted. COMPARISON: 05/11/2016 FINDINGS: Support Hardware: None Cardiovascular: The cardiovascular silhouette appears unremarkable. Lung Perales: The lung perales appear clear with no nodule, alveolar infiltrate, for a interstitial pr ominence evident. Pleural Spaces: No pneumothorax or pleural effusion is identified. Osseous Structures: The osseous structures appear intact. Soft Tissues: The soft tissues appear unremarkable. IMPRESSION: Unremarkable portable chest. Physician Kami Date Time Electronically viewed and signed by Natalie Wells Physician on 05/14/2016 20:13 /
[2016-05-14] MEDS: ATORVASTATIN 80 MG TAB PO SCH (21:48)
[2016-05-14] MEDS: BENAZEPRIL 10 MG TAB PO SCH (21:48)
[2016-05-15 07:17] LABS: CHOLESTEROL 92 mg/dl (100-200); TRIGLYCERIDES 55 mg/dl (0-149)
[2016-05-15 07:18] LABS: CHOL/HDL RATIO 2.6 RATIO; HDL CHOLESTEROL 35 mg/dl (30-78)
[2016-05-15 07:42] LABS: TROPONIN-I < 0.010 ng/ml (0.00-0.12)
--- NOTE | 2016-05-15 08:09 | CONS ---
DATE OF ADMISSION: 05/13/2016 DATE OF CONSULTATION: 05/14/2016 REASON FOR CONSULTATION: Medical management during the course of acute rehab. HISTORY OF PRESENT ILLNESS: This is a very pleasant 60-year-old gentleman with past medical history of abdominal aortic aneurysm, essential hypertension, paranoid schizophrenia, dyslipidemia, marijua na use, nicotine dependency, who was recently discharged from [facility] on 2016 after ____ CVA. At that time, the patient's MRI demonstrated right basal ganglia and external capsule posterior florez radiata. He was optimized medically and was seen by neurology, was [facility]char [facility] to [facility] facility recommended to undergo physical therapy. The patient was transferre d back to the emergency room on 05/11/2016 with left-sided weakness. Patient verbalized the left-si ded weakness has been getting worse. Underwent CT scan of brain in the emergency room, which was co ncerning for acute stroke in the carlee. Patient underwent MRI of the brain, which confirmed acute ex tensive ischemic infarct noted of the right posterior limb, both internal capsule, ____ peduncle and subacute infarct in the right posterior florez radiata, external capsule in the superior basal gang agusto. The patient was seen and evaluated by neurology, was placed on dual antiplatelet therapy, on a spirin and Plavix, ____ statin. Patient's blood pressure was found to be optimized, and patient aft er seen and evaluated by physical therapy, was found to be a good candidate for rehab at [facility]. Therefore, was transferred to acute rehab for further evaluation and treatment. At this time, the patient is sitting on the chair comfortably without any acute distress. He is aw nurys, alert, oriented. He denies having any discomfort at this time. PAST MEDICAL AND SURGICAL HISTORY: As above per HPI. MEDICATIONS: 1. Hydralazine p.r.n. 2. Aspirin 81 mg. 3. Plavix 75 mg. 4. Cogentin 2 mg. 5. Prolixin 5 mg. 6. Lipitor 80 mg. 7. Pepcid 20 mg 8. Norvasc 10 mg. ALLERGIES: NO KNOWN DRUG ALLERGIES. FAMILY HISTORY: Positive for hypertension, dyslipidemia, coronary artery disease. SOCIAL HISTORY: Positive for smoking 4 to 5 cigarettes per day. No alcohol. Smokes marijuana freq uently. Lives at home. REVIEW OF SYSTEMS: As above per HPI. Otherwise, 12 review of systems was found to be negative. PHYSICAL EXAMINATION: VITAL SIGNS: Temperature 98.5, pulse 75, respiration 18, blood pressure ranged between 147/89 to 17 4/100, oxygen saturation 98% on room air. GENERAL APPEARANCE: The patient is sitting the chair comfortably without acute distress. He is [place], alert, oriented. He is able to answer my questions properly. EYES AND ENT: Conjunctivae and lids are normal. Pupils are normal. Extraocular normal. Hearing g rossly normal. Lips are normal. Oral mucosa is mildly dry. NECK: Supple. Trachea is midline. No lymphadenopathy. RESPIRATORY: However, effort is normal. Clear to auscultate bilaterally. CARDIOVASCULAR: Normal S1, S2. Regular rhythm and rate. No murmur, no bruits, no edema. Peripher al pulses, radial pulses palpable. Cap refill is normal. CHEST: Normal expansion of thorax during inspiration. GASTROINTESTINAL: Abdomen is soft, nontender, not distended. Bowel sounds present. No guarding, n o rebound. There is a scar in the mid abdominal region from his prior surgery, triple repair. GENITOURINARY: Deferred. MUSCULOSKELETAL: Right upper and lower extremities within normal limit. Left upper and lower extre mities, from the upper extremity there is contraction of the wrist. Strength is 3/5. Left lower ex tremity strength 3/5. NEUROLOGIC: Cranial nerves II through XII seem grossly intact. He is awake, alert, oriented. LABORATORY WORK AND IMAGING: Sodium 141, potassium 4.1, chloride 105, bicarbonate 23, BUN 19, creat inine 0.82, glucose 94, calcium 9.1. WBC 8.3, hemoglobin 13.5, hematocrit 40.7, platelets 282. ASSESSMENT AND PLAN: 1. Acute on chronic cerebrovascular accident. The patient will be placed on dual antiplatelets, st atin. Continue to monitor blood pressure and treat accordingly. 2. Essential hypertension, moderately uncontrolled. At this time, will continue patient's medicati on amlodipine and also start the patient on Coreg. Also, the patient has been placed on hydralazine p.r.n. 3. Nicotine dependency. Patient has been placed on nicotine patch. 4. Dyslipidemia, on Lipitor. 5. Paranoid schizophrenia. Continue home medications. 6. We will continue to monitor patient closely. Further recommendations, management, and treatment as per clinical course. Total time spent for this patient and admission workup 40 minutes. Dictated By: ANKIT BERGER MD PN/NTS Conf#: [id number] DID#: [id number]
[2016-05-15] MEDS: CLOPIDOGREL 75 MG TAB PO SCH (09:35)
[2016-05-15] MEDS: DOCUSATE SODIUM 100 MG CAP PO SCH ×2 (09:35→21:17)
[2016-05-15] MEDS: BENZTROPINE 1 MG TAB PO SCH ×2 (09:35→21:16)
[2016-05-15] MEDS: BENAZEPRIL 10 MG TAB PO SCH ×2 (09:36→21:16)
[2016-05-15] MEDS: FLUPHENAZINE 5 MG TAB PO SCH ×2 (09:36→21:17)
[2016-05-15] MEDS: AMLODIPINE 10 MG TAB PO SCH (09:36)
[2016-05-15] MEDS: ASPIRIN (EC) 81 MG TAB PO SCH (09:36)
[2016-05-15] MEDS: FAMOTIDINE 20 MG TAB PO SCH ×2 (09:36→21:17)
[2016-05-15] MEDS: NICOTINE (14 MG/24 HR) PATCH TRANSDERM SCH (09:37)
--- NOTE | 2016-05-15 11:56 | CONS ---
Date/Time of Note Date/Time of Note DATE: 05/15/16 TIME: 11:54 Consult Date/Type/Reason Admit Date/Time May 13, 2016 at 19:30 Initial Consult Date Subjective Calmer today Objective pulm-cta card-s1s2 mod transfer Vital Signs Date Time Temp Pulse Resp B/P Pulse Ox O2 Delivery O2 Flow Rate FiO2 05/14/16 20:00 98.5 87 150/99 95 05/14/16 07:30 18 Intake and Output 05/14/16 05/14/16 05/15/16 15:00 23:00 07:00 Intake Total 1800 ml 250 ml Output Total 1600 ml 650 ml Balance 200 ml -400 ml Results/Medications Result Diagram: 05/14/16 0708 05/14/16 0708 Results 24 hrs Laboratory Tests Test 05/14/16 18:26 05/15/16 06:05 Troponin I < 0.010 < 0.010 Cholesterol Level 92 L Cholesterol/HDL Ratio 2.6 HDL Cholesterol 35 LDL Cholesterol, Calculated 46 Triglycerides Level 55 Medications Current Medications Acetaminophen (Tylenol Tab) 650 mg Q6H PRN PO PAIN AND OR ELEVATED TEMP; Start 05/13/16 at 21:30 Aspirin (Halfprin) 81 mg DAILY PO Last administered on 05/15/16 09:36; Admin Dose 81 MG; Start 05/14/16 at 09:00 Atorvastatin Calcium (Lipitor) 80 mg HS PO Last administered on 05/14/16 21:48 ; Admin Dose 80 MG; Start 05/13/16 at 21:30 Benztropine Mesylate (Cogentin) 2 mg BID PO Last administered on 05/15/16 09: 35; Admin Dose 2 MG; Start 05/13/16 at 22:00 Clopidogrel Bisulfate (plaVIX) 75 mg DAILY PO Last administered on 05/15/16 09 :35; Admin Dose 75 MG; Start 05/14/16 at 09:00 Docusate Sodium (Colace) 100 mg BID PO Last administered on 05/15/16 09:35; Admin Dose 100 MG; Start 05/13/16 at 21:30 Famotidine (Pepcid) 20 mg BID PO Last administered on 05/15/16 09:36; Admin Dose 20 MG; Start 05/13/16 at 21:30 Fluphenazine HCl (Prolixin) 5 mg BID PO Last administered on 05/15/16 09:36; Admin Dose 5 MG; Start 05/13/16 at 22:00 Amlodipine Besylate (Norvasc) 10 mg DAILY PO Last administered on 05/15/16 09: 36; Admin Dose 10 MG; Start 05/13/16 at 21:30 Bisacodyl (Dulcolax Supp) 10 mg DAILY PRN HI CONSTIPATION; Start 05/13/16 at 23 :30 Magnesium Hydroxide (Milk Of Mag) 30 ml BID PRN PO CONSTIPATION; Start at 23:30 Lactulose (Enulose) 20 gm DAILY PRN PO CONSTIPATION; Start 05/13/16 at 23:30 Hydralazine HCl (Apresoline) 25 mg Q6H PRN PO ELEVATED BLOOD PRESSURE Last administered on 05/14/16 14:19; Admin Dose 25 MG; Start 05/14/16 at 14:00 Nicotine (Nicoderm 14 Mg/ 24hr) 1 patch DAILY TRANSDERM Last administered on 09:37; Admin Dose 1 PATCH; Start 05/14/16 at 18:00 Carvedilol (Coreg) 6.25 mg BID PO Last administered on 05/15/16 09:36; Admin Dose 6.25 MG; Start 05/14/16 at 21:00 Benazepril HCl (Lotensin) 10 mg BID PO Last administered on 05/15/16 09:36; Admin Dose 10 MG; Start 05/14/16 at 21:00 Assessment/Plan Additional Assessment/Plan Rehab- 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 Continue rehab program Hypertension. Anemia. Dyslipidemia. psych- stable Dysphagia- speech RUFINA REAGAN MD May 15, 2016 11:56
[2016-05-15] MEDS ORDERED: BETAMETHASONE/CLOTRIMAZOLE 15 GM CR TOP SCH (12:00)
--- NOTE | 2016-05-15 13:48 | CONS ---
Date/Time of Note Date/Time of Note DATE: 05/15/16 TIME: 13:44 Assessment/Plan Assessment/Plan Additional Assessment/Plan 1. Hypertension, labile - no acute change - BP stable, will adjust Rx as needed. 2. Dyslipidemia- Rx to goal. 3. Abnormal electrocardiogram, assess for acute coronary syndrome- r/o [place], doubt ischemia.. 4. History of recent cerebrovascular accident- now in rehab, feels "numb" on left side, con't rehab. 5. Ongoing tobacco usage. 6. Schizophrenia- on Rx, no agitation now. Consultation Date/Type/Reason Admit Date/Time May 13, 2016 at 19:30 Initial Consult Date 24 HR Interval Summary Free Text/Dictation No acute change - con't rehab- stable fluid status. ROS: No fever, no chills, no nausea, no vomiting, no diarrhea/constipation No recent weight changes No chest pain, no PND, no orthopnea No dizziness, blurred vision No thirst, no heat or cold intolerance s/p CVA Exam/Review of Systems Vital Signs Vitals Vital Signs Date Time Temp Pulse Resp B/P Pulse Ox O2 Delivery O2 Flow Rate FiO2 05/14/16 20:00 98.5 87 150/99 95 05/14/16 07:30 18 Intake and Output 05/14/16 05/14/16 05/15/16 15:00 23:00 07:00 Intake Total 1800 ml 250 ml Output Total 1600 ml 650 ml Balance 200 ml -400 ml Exam General: WN/WD/NAD, AOx 3 HEENT: Unicetric/atraumatic/EOMI (follow commands) NECK: JVD elevated, no thyromegaly Lymph: no lymphadenopathy HEART: regular with no S3, II/ systolic murmur at apex LUNGS: Coarse sounds ABD: soft, NT, ND, +BS : Intact Neuro: L weakness SKIN: chronic changes EXT: trace edema Results Result Diagram: 05/14/16 0708 05/14/16 0708 Results 24 hrs Laboratory Tests Test 05/14/16 18:26 05/15/16 06:05 Troponin I < 0.010 < 0.010 Cholesterol Level 92 L Cholesterol/HDL Ratio 2.6 HDL Cholesterol 35 LDL Cholesterol, Calculated 46 Triglycerides Level 55 Medications Medications Current Medications Acetaminophen (Tylenol Tab) 650 mg Q6H PRN PO PAIN AND OR ELEVATED TEMP; Start 05/13/16 at 21:30 Aspirin (Halfprin) 81 mg DAILY PO Last administered on 05/15/16 09:36; Admin Dose 81 MG; Start 05/14/16 at 09:00 Atorvastatin Calcium (Lipitor) 80 mg HS PO Last administered on 05/14/16 21:48 ; Admin Dose 80 MG; Start 05/13/16 at 21:30 Benztropine Mesylate (Cogentin) 2 mg BID PO Last administered on 05/15/16 09: 35; Admin Dose 2 MG; Start 05/13/16 at 22:00 Clopidogrel Bisulfate (plaVIX) 75 mg DAILY PO Last administered on 05/15/16 09 :35; Admin Dose 75 MG; Start 05/14/16 at 09:00 Docusate Sodium (Colace) 100 mg BID PO Last administered on 05/15/16 09:35; Admin Dose 100 MG; Start 05/13/16 at 21:30 Famotidine (Pepcid) 20 mg BID PO Last administered on 05/15/16 09:36; Admin Dose 20 MG; Start 05/13/16 at 21:30 Fluphenazine HCl (Prolixin) 5 mg BID PO Last administered on 05/15/16 09:36; Admin Dose 5 MG; Start 05/13/16 at 22:00 Amlodipine Besylate (Norvasc) 10 mg DAILY PO Last administered on 05/15/16 09: 36; Admin Dose 10 MG; Start 05/13/16 at 21:30 Bisacodyl (Dulcolax Supp) 10 mg DAILY PRN [place] CONSTIPATION; Start 05/13/16 at 23 :30 Magnesium Hydroxide (Milk Of Mag) 30 ml BID PRN PO CONSTIPATION; Start at 23:30 Lactulose (Enulose) 20 gm DAILY PRN PO CONSTIPATION; Start 05/13/16 at 23:30 Hydralazine HCl (Apresoline) 25 mg Q6H PRN PO ELEVATED BLOOD PRESSURE Last administered on 05/14/16 14:19; Admin Dose 25 MG; Start 05/14/16 at 14:00 Nicotine (Nicoderm 14 Mg/ 24hr) 1 patch DAILY TRANSDERM Last administered on 09:37; Admin Dose 1 PATCH; Start 05/14/16 at 18:00 Carvedilol (Coreg) 6.25 mg BID PO Last administered on 05/15/16 09:36; Admin Dose 6.25 MG; Start 05/14/16 at 21:00 Benazepril HCl (Lotensin) 10 mg BID PO Last administered on 05/15/16 09:36; Admin Dose 10 MG; Start 05/14/16 at 21:00 MIRTHA BAUGH MD May 15, 2016 13:48
--- NOTE | 2016-05-15 16:09 | PN ---
Date/Time of Note Date/Time of Note DATE: 05/15/16 TIME: 16:08 Assessment/Plan VTE Prophylaxis VTE Prophylaxis Intervention: other Lines/Catheters [facility]from [facility] Saline Lock Urinary Cath still in place: No Assessment/Plan Chief Complaint/Hosp Course ASSESSMENT AND PLAN: 1. Acute on chronic cerebrovascular accident. The patient will be placed on dual antiplatelets, statin. Continue to monitor blood pressure and treat accordingly. 2. Essential hypertension, better controlled continue amlodipine and Coreg also , the patient has been placed on hydralazine p.r.n. 3. Nicotine dependency. Patient has been placed on nicotine patch. 4. Dyslipidemia, on Lipitor. 5. Paranoid schizophrenia. Continue home medications. We will continue to monitor patient closely. Further recommendations, management, and treatment as per clinical course. Problems: Subjective 24 Hr Interval Summary Free Text/Dictation Patient denies any chest pain or shortness of breath No nausea vomiting diarrhea Left upper and lower extremity weakness Max assist with ambulation Exam/Review of Systems Vital Signs Vitals Vital Signs Date Time Temp Pulse Resp B/P Pulse Ox O2 Delivery O2 Flow Rate FiO2 05/14/16 20:00 98.5 87 150/99 95 05/14/16 07:30 18 Intake and Output 05/14/16 05/14/16 05/15/16 15:00 23:00 07:00 Intake Total 1800 ml 250 ml Output Total 1600 ml 650 ml Balance 200 ml -400 ml Exam General: The patient is well-developed, Not in acute distress. HEENT: Atraumatic, normocephalic. The pupils are equal and round . Neck: Supple with full range of motion. Chest: Normal expansion of the thorax during inspiration Lungs: Clear to auscultation bilaterally Heart: Normal S1-S2, Regular rhythm and rate. Abdomen: Soft , nontender, nondistended , bowel sounds are present. Extremities: Left upper 2/5 and lower extremity 3/5 weakness, no edema no cyanosis Neurologic: Normal mental status,The patient is awake, alert and oriented . Results Result Diagram: 05/14/16 0708 05/14/16 0708 Results 24 hrs Laboratory Tests Test 05/14/16 18:26 05/15/16 06:05 Troponin I < 0.010 < 0.010 Cholesterol Level 92 L Cholesterol/HDL Ratio 2.6 HDL Cholesterol 35 LDL Cholesterol, Calculated 46 Triglycerides Level 55 Medications Medications Current Medications Acetaminophen (Tylenol Tab) 650 mg Q6H PRN PO PAIN AND OR ELEVATED TEMP; Start 05/13/16 at 21:30 Aspirin (Halfprin) 81 mg DAILY PO Last administered on 05/15/16 09:36; Admin Dose 81 MG; Start 05/14/16 at 09:00 Atorvastatin Calcium (Lipitor) 80 mg HS PO Last administered on 05/14/16 21:48 ; Admin Dose 80 MG; Start 05/13/16 at 21:30 Benztropine Mesylate (Cogentin) 2 mg BID PO Last administered on 05/15/16 09: 35; Admin Dose 2 MG; Start 05/13/16 at 22:00 Clopidogrel Bisulfate (plaVIX) 75 mg DAILY PO Last administered on 05/15/16 09 :35; Admin Dose 75 MG; Start 05/14/16 at 09:00 Docusate Sodium (Colace) 100 mg BID PO Last administered on 05/15/16 09:35; Admin Dose 100 MG; Start 05/13/16 at 21:30 Famotidine (Pepcid) 20 mg BID PO Last administered on 05/15/16 09:36; Admin Dose 20 MG; Start 05/13/16 at 21:30 Fluphenazine HCl (Prolixin) 5 mg BID PO Last administered on 05/15/16 09:36; Admin Dose 5 MG; Start 05/13/16 at 22:00 Amlodipine Besylate (Norvasc) 10 mg DAILY PO Last administered on 05/15/16 09: 36; Admin Dose 10 MG; Start 05/13/16 at 21:30 Bisacodyl (Dulcolax Supp) 10 mg DAILY PRN [place] CONSTIPATION; Start 05/13/16 at 23 :30 Magnesium Hydroxide (Milk Of Mag) 30 ml BID PRN PO CONSTIPATION; Start at 23:30 Lactulose (Enulose) 20 gm DAILY PRN PO CONSTIPATION; Start 05/13/16 at 23:30 Hydralazine HCl (Apresoline) 25 mg Q6H PRN PO ELEVATED BLOOD PRESSURE Last administered on 05/14/16 14:19; Admin Dose 25 MG; Start 05/14/16 at 14:00 Nicotine (Nicoderm 14 Mg/ 24hr) 1 patch DAILY TRANSDERM Last administered on 09:37; Admin Dose 1 PATCH; Start 05/14/16 at 18:00 Carvedilol (Coreg) 6.25 mg BID PO Last administered on 05/15/16 09:36; Admin Dose 6.25 MG; Start 05/14/16 at 21:00 Benazepril HCl (Lotensin) 10 mg BID PO Last administered on 05/15/16 09:36; Admin Dose 10 MG; Start 05/14/16 at 21:00 ANKIT BERGER MD May 15, 2016 16:09
[2016-05-15 20:00] VITALS: BP 131/96; RESP 18
[2016-05-15] MEDS: ATORVASTATIN 80 MG TAB PO SCH (21:17)
[2016-05-16] MEDS: NICOTINE (14 MG/24 HR) PATCH TRANSDERM SCH (09:23)
[2016-05-16] MEDS: DOCUSATE SODIUM 100 MG CAP PO SCH ×2 (09:24→20:47)
[2016-05-16] MEDS: FAMOTIDINE 20 MG TAB PO SCH ×2 (09:24→20:49)
[2016-05-16] MEDS: CLOPIDOGREL 75 MG TAB PO SCH (09:24)
[2016-05-16] MEDS: BENAZEPRIL 10 MG TAB PO SCH ×2 (09:24→20:49)
[2016-05-16] MEDS: ASPIRIN (EC) 81 MG TAB PO SCH (09:25)
[2016-05-16] MEDS: AMLODIPINE 10 MG TAB PO SCH (09:26)
[2016-05-16] MEDS: BENZTROPINE 1 MG TAB PO SCH ×2 (09:26→20:47)
[2016-05-16] MEDS: FLUPHENAZINE 5 MG TAB PO SCH ×2 (09:26→20:48)
--- NOTE | 2016-05-16 13:42 | PN ---
Date/Time of Note Date/Time of Note DATE: 05/16/16 TIME: 13:31 Assessment/Plan VTE Prophylaxis VTE Prophylaxis Intervention: ambulation, SCD's Lines/Catheters IV Catheter Type (from Nrs): Saline Lock Urinary Cath still in place: No Assessment/Plan Assessment/Plan 1. Right basal ganglia and florez radiata cerebrovascular accident with extension of ischemic infarct into the right posterior limb of the internal capsule and cerebral peduncle with dominant left hemiparesis, impaired mobility/ gait/ADLs/cognition, dysphagia. Continue PT/OT/ST. Modified diet per ST. Ambulating 40ft with forearm walker. Continue secondary stroke prevention. 2. Hypertension. Monitor BP, internal medicine and cardiology medically managing. 3. Anemia. Monitor hemoglobin/hematocrit. 4. Dyslipidemia. Continue statin. 5. Schizophrenia. Continue antipsychotic medications. Subjective 24 Hr Interval Summary Free Text/Dictation Rehab progress note Subjective: Denies current complaints. No acute overnight events reported by nursing staff. ROS: Denies chest pain, no shortness of breath, no abdominal pain, no nausea, no chills, no headache, no new weakness. Exam/Review of Systems Vital Signs Vitals Vital Signs Date Time Temp Pulse Resp B/P Pulse Ox O2 Delivery O2 Flow Rate FiO2 05/15/16 20:00 98.4 84 18 131/96 96 Intake and Output 05/15/16 05/15/16 05/16/16 15:00 23:00 07:00 Intake Total 1100 ml 350 ml Output Total 900 ml 1000 ml 950 ml Balance -900 ml 100 ml -600 ml Exam General: Awake, alert, no acute distress CV: Regular rate, s1s2 Lungs: Symmetrical air entry bilaterally, no wheezing Abdomen soft, nontender Extremities no cyanosis, no edema Neuro: Left sided hemiparesis affecting LUE more so than LLE. Follows simple commands. Results Result Diagram: 05/14/1608 05/14/16707 Medications Medications Current Medications Acetaminophen (Tylenol Tab) 650 mg Q6H PRN PO PAIN AND OR ELEVATED TEMP; Start 05/13/16 at 21:30 Aspirin (Halfprin) 81 mg DAILY PO Last administered on 05/16/16 09:25; Admin Dose 81 MG; Start 05/14/16 at 09:00 Atorvastatin Calcium (Lipitor) 80 mg HS PO Last administered on 05/15/16 21:17 ; Admin Dose 80 MG; Start 05/13/16 at 21:30 Benztropine Mesylate (Cogentin) 2 mg BID PO Last administered on 05/16/16 09: 26; Admin Dose 2 MG; Start 05/13/16 at 22:00 Clopidogrel Bisulfate (plaVIX) 75 mg DAILY PO Last administered on 05/16/16 09 :24; Admin Dose 75 MG; Start 05/14/16 at 09:00 Docusate Sodium (Colace) 100 mg BID PO Last administered on 05/16/16 09:24; Admin Dose 100 MG; Start 05/13/16 at 21:30 Famotidine (Pepcid) 20 mg BID PO Last administered on 05/16/16 09:24; Admin Dose 20 MG; Start 05/13/16 at 21:30 Fluphenazine HCl (Prolixin) 5 mg BID PO Last administered on 05/16/16 09:26; Admin Dose 5 MG; Start 05/13/16 at 22:00 Amlodipine Besylate (Norvasc) 10 mg DAILY PO Last administered on 05/16/16 09: 26; Admin Dose 10 MG; Start 05/13/16 at 21:30 Bisacodyl (Dulcolax Supp) 10 mg DAILY PRN [place] CONSTIPATION; Start 05/13/16 at 23 :30 Magnesium Hydroxide (Milk Of Mag) 30 ml BID PRN PO CONSTIPATION; Start at 23:30 Lactulose (Enulose) 20 gm DAILY PRN PO CONSTIPATION; Start 05/13/16 at 23:30 Hydralazine HCl (Apresoline) 25 mg Q6H PRN PO ELEVATED BLOOD PRESSURE Last administered on 05/14/16 14:19; Admin Dose 25 MG; Start 05/14/16 at 14:00 Nicotine (Nicoderm 14 Mg/ 24hr) 1 patch DAILY TRANSDERM Last administered on 09:23; Admin Dose 1 PATCH; Start 05/14/16 at 18:00 Carvedilol (Coreg) 6.25 mg BID PO Last administered on 05/16/16 09:25; Admin Dose 6.25 MG; Start 05/14/16 at 21:00 Benazepril HCl (Lotensin) 10 mg BID PO Last administered on 05/16/16 09:24; Admin Dose 10 MG; Start 05/14/16 at 21:00 MINGO KING May 16, 2016 13:41
--- NOTE | 2016-05-16 14:48 | PN ---
Date/Time of Note Date/Time of Note DATE: 05/16/16 TIME: 14:47 Assessment/Plan VTE Prophylaxis VTE Prophylaxis Intervention: LMWH Lines/Catheters IV [facility] Saline Lock Urinary Cath still in place: No Assessment/Plan Chief Complaint/Hosp Course ASSESSMENT AND PLAN: 1. Acute on chronic cerebrovascular accident. The patient will be placed on dual antiplatelets, statin. Continue to monitor blood pressure and treat accordingly. 2. Essential hypertension, better controlled continue amlodipine and Coreg also , the patient has been placed on hydralazine p.r.n. 3. Nicotine dependency. Patient has been placed on nicotine patch. 4. Dyslipidemia, on Lipitor. 5. Paranoid schizophrenia. Continue home medications. We will continue to monitor patient closely. Further recommendations, management, and treatment as per clinical course. Problems: Subjective 24 Hr Interval Summary Free Text/Dictation Patient denies any chest pain or shortness of breath Ambulate 40 feet with moderate assist No nausea vomiting diarrhea Exam/Review of Systems Vital Signs Vitals Vital Signs Date Time Temp Pulse Resp B/P Pulse Ox O2 Delivery O2 Flow Rate FiO2 05/15/16 20:00 98.4 84 18 131/96 96 Intake and Output 05/15/16 05/15/16 05/16/16 15:00 23:00 07:00 Intake Total 1100 ml 350 ml Output Total 900 ml 1000 ml 950 ml Balance -900 ml 100 ml -600 ml Exam General: The patient is well-developed, Not in acute distress. HEENT: Atraumatic, normocephalic. The pupils are equal and round . Neck: Supple with full range of motion. Chest: Normal expansion of the thorax during inspiration Lungs: Clear to auscultation bilaterally Heart: Normal S1-S2, Regular rhythm and rate. Abdomen: Soft , nontender, nondistended , bowel sounds are present. Extremities: Left upper and lower extremity weakness3/5 , no edema no cyanosis Neurologic: Normal mental status,The patient is awake, alert and oriented . Results Result Diagram: 05/14/16 0708 05/14/16 0708 Medications Medications Current Medications Acetaminophen (Tylenol Tab) 650 mg Q6H PRN PO PAIN AND OR ELEVATED TEMP; Start 05/13/16 at 21:30 Aspirin (Halfprin) 81 mg DAILY PO Last administered on 05/16/16t 09:25; Admin Dose 81 MG; Start 05/14/16 at 09:00 Atorvastatin Calcium (Lipitor) 80 mg HS PO Last administered on 05/15/16 21:17 ; Admin Dose 80 MG; Start 05/13/16 at 21:30 Benztropine Mesylate (Cogentin) 2 mg BID PO Last administered on 05/16/16 09: 26; Admin Dose 2 MG; Start 05/13/16 at 22:00 Clopidogrel Bisulfate (plaVIX) 75 mg DAILY PO Last administered on 05/16/16 09 :24; Admin Dose 75 MG; Start 05/14/16 at 09:00 Docusate Sodium (Colace) 100 mg BID PO Last administered on 05/16/16 09:24; Admin Dose 100 MG; Start 05/13/16 at 21:30 Famotidine (Pepcid) 20 mg BID PO Last administered on 05/16/16 09:24; Admin Dose 20 MG; Start 05/13/16 at 21:30 Fluphenazine HCl (Prolixin) 5 mg BID PO Last administered on 05/16/16 09:26; Admin Dose 5 MG; Start 05/13/16 at 22:00 Amlodipine Besylate (Norvasc) 10 mg DAILY PO Last administered on 05/16/16 09: 26; Admin Dose 10 MG; Start 05/13/16 at 21:30 Bisacodyl (Dulcolax Supp) 10 mg DAILY PRN [place] CONSTIPATION; Start 05/13/16 at 23 :30 Magnesium Hydroxide (Milk Of Mag) 30 ml BID PRN PO CONSTIPATION; Start at 23:30 Lactulose (Enulose) 20 gm DAILY PRN PO CONSTIPATION; Start 05/13/16 at 23:30 Hydralazine HCl (Apresoline) 25 mg Q6H PRN PO ELEVATED BLOOD PRESSURE Last administered on 05/14/16 14:19; Admin Dose 25 MG; Start 05/14/16 at 14:00 Nicotine (Nicoderm 14 Mg/ 24hr) 1 patch DAILY TRANSDERM Last administered on 09:23; Admin Dose 1 PATCH; Start 05/14/16 at 18:00 Carvedilol (Coreg) 6.25 mg BID PO Last administered on 05/16/16 09:25; Admin Dose 6.25 MG; Start 05/14/16 at 21:00 Benazepril HCl (Lotensin) 10 mg BID PO Last administered on 05/16/16 09:24; Admin Dose 10 MG; Start 05/14/16 at 21:00 ANKIT BERGER MD May 16, 2016 14:48
--- NOTE | 2016-05-16 17:08 | CONS ---
Date/Time of Note Date/Time of Note DATE: 05/16/16 TIME: 17:06 Assessment/Plan Assessment/Plan Additional Assessment/Plan 1. Hypertension, labile - no acute change - BP stable, will adjust Rx as needed. WILL MONITOR - IAIN now. 2. Dyslipidemia- Rx to goal. 3. Abnormal electrocardiogram, assess for acute coronary syndrome- r/o [place], doubt ischemia.. 4. History of recent cerebrovascular accident- now in rehab, feels "numb" on left side, con't rehab. REHAB TO CON'T 5. Ongoing tobacco usage - d/c advised 6. Schizophrenia- on Rx, no agitation now. Consultation Date/Type/Reason Admit Date/Time May 13, 2016 at 19:30 24 HR Interval Summary Free Text/Dictation NO acute change - con't rehab. ROS: No fever, no chills, no nausea, no vomiting, no diarrhea/constipation No recent weight changes No chest pain, no PND, no orthopnea No dizziness, blurred vision No thirst, no heat or cold intolerance Exam/Review of Systems Vital Signs Vitals Vital Signs Date Time Temp Pulse Resp B/P Pulse Ox O2 Delivery O2 Flow Rate FiO2 05/15/16 20:00 98.4 84 18 131/96 96 Intake and Output 05/15/16 05/15/16 05/16/16 15:00 23:00 07:00 Intake Total 1100 ml 350 ml Output Total 900 ml 1000 ml 950 ml Balance -900 ml 100 ml -600 ml Exam General: WN/WD/NAD, AOx 3 HEENT: Unicetric/atraumatic/EOMI (follow commands) NECK: JVD elevated, no thyromegaly Lymph: no lymphadenopathy HEART: regular with no S3, II/ systolic murmur at apex LUNGS: Coarse sounds ABD: soft, NT, ND, +BS : Intact Neuro: s/p cva SKIN: chronic changes EXT: trace edema Results Result Diagram: 05/14/1670705/14/16707 Medications Medications Current Medications Acetaminophen (Tylenol Tab) 650 mg Q6H PRN PO PAIN AND OR ELEVATED TEMP; Start 05/13/16 at 21:30 Aspirin (Halfprin) 81 mg DAILY PO Last administered on 05/16/16t 09:25; Admin Dose 81 MG; Start 05/14/16 at 09:00 Atorvastatin Calcium (Lipitor) 80 mg HS PO Last administered on 05/15/16 21:17 ; Admin Dose 80 MG; Start 05/13/16 at 21:30 Benztropine Mesylate (Cogentin) 2 mg BID PO Last administered on 05/16/16 09: 26; Admin Dose 2 MG; Start 05/13/16 at 22:00 Clopidogrel Bisulfate (plaVIX) 75 mg DAILY PO Last administered on 05/16/16 09 :24; Admin Dose 75 MG; Start 05/14/16 at 09:00 Docusate Sodium (Colace) 100 mg BID PO Last administered on 05/16/16 09:24; Admin Dose 100 MG; Start 05/13/16 at 21:30 Famotidine (Pepcid) 20 mg BID PO Last administered on 05/16/16 09:24; Admin Dose 20 MG; Start 05/13/16 at 21:30 Fluphenazine HCl (Prolixin) 5 mg BID PO Last administered on 05/16/16 09:26; Admin Dose 5 MG; Start 05/13/16 at 22:00 Amlodipine Besylate (Norvasc) 10 mg DAILY PO Last administered on 05/16/16 09: 26; Admin Dose 10 MG; Start 05/13/16 at 21:30 Bisacodyl (Dulcolax Supp) 10 mg DAILY PRN [place] CONSTIPATION; Start 05/13/16 at 23 :30 Magnesium Hydroxide (Milk Of Mag) 30 ml BID PRN PO CONSTIPATION; Start at 23:30 Lactulose (Enulose) 20 gm DAILY PRN PO CONSTIPATION; Start 05/13/16 at 23:30 Hydralazine HCl (Apresoline) 25 mg Q6H PRN PO ELEVATED BLOOD PRESSURE Last administered on 05/14/16 14:19; Admin Dose 25 MG; Start 05/14/16 at 14:00 Nicotine (Nicoderm 14 Mg/ 24hr) 1 patch DAILY TRANSDERM Last administered on 09:23; Admin Dose 1 PATCH; Start 05/14/16 at 18:00 Carvedilol (Coreg) 6.25 mg BID PO Last administered on 05/16/16 09:25; Admin Dose 6.25 MG; Start 05/14/16 at 21:00 Benazepril HCl (Lotensin) 10 mg BID PO Last administered on 05/16/16 09:24; Admin Dose 10 MG; Start 05/14/16 at 21:00 MIRTHA BAUGH MD May 16, 2016 17:08
[2016-05-16 19:31] VITALS: BP 170/81; RESP 16
[2016-05-16 19:34] VITALS: BP 132/72; RESP 20
[2016-05-16 19:52] VITALS: BP 138/73; RESP 19
[2016-05-16] MEDS: ATORVASTATIN 80 MG TAB PO SCH (20:47)
[2016-05-17 07:30] VITALS: BP 120/76; RESP 18
[2016-05-17] MEDS: DOCUSATE SODIUM 100 MG CAP PO SCH ×2 (08:31→20:12)
[2016-05-17] MEDS: BENZTROPINE 1 MG TAB PO SCH ×2 (08:31→20:11)
[2016-05-17] MEDS: ASPIRIN (EC) 81 MG TAB PO SCH (08:32)
[2016-05-17] MEDS: FAMOTIDINE 20 MG TAB PO SCH ×2 (08:32→20:12)
[2016-05-17] MEDS: AMLODIPINE 10 MG TAB PO SCH (08:32)
[2016-05-17] MEDS: BENAZEPRIL 10 MG TAB PO SCH ×2 (08:32→20:12)
[2016-05-17] MEDS: FLUPHENAZINE 5 MG TAB PO SCH ×2 (08:33→20:12)
[2016-05-17] MEDS: CLOPIDOGREL 75 MG TAB PO SCH (08:33)
[2016-05-17] MEDS: NICOTINE (14 MG/24 HR) PATCH TRANSDERM SCH (08:33)
--- NOTE | 2016-05-17 11:18 | PN ---
Date/Time of Note Date/Time of Note DATE: 05/17/16 TIME: 11:15 Assessment/Plan VTE Prophylaxis VTE Prophylaxis Intervention: ambulation, SCD's Lines/Catheters IV Catheter Type (from Nrs): Saline Lock Urinary Cath still in place: No Assessment/Plan Assessment/Plan 1. Right basal ganglia and florez radiata cerebrovascular accident with extension of ischemic infarct into the right posterior limb of the internal capsule and cerebral peduncle with dominant left hemiparesis, impaired mobility/ gait/ADLs/cognition, dysphagia. Continue PT/OT/ST. Modified diet per ST. Moderate assistance for bed mobility and transfers. Continue secondary stroke prevention. 2. Hypertension. BP controlled, internal medicine and cardiology medically managing. 3. Anemia. Monitor hemoglobin/hematocrit. 4. Dyslipidemia. Continue statin. 5. Schizophrenia. Mood stable, monitor. Subjective 24 Hr Interval Summary Free Text/Dictation Rehab progress note Subjective: Denies any acute complaints. No new acute overnight events per nursing staff. ROS: Denies headache, no dizziness, no new weakness, no chest pain, no shortness of breath, no abdominal pain, no nausea or vomiting. Exam/Review of Systems Vital Signs Vitals Vital Signs Date Time Temp Pulse Resp B/P Pulse Ox O2 Delivery O2 Flow Rate FiO2 05/17/16 07:30 98.5 58 18 120/76 97 Intake and Output 05/16/16 05/16/16 05/17/16 15:00 23:00 07:00 Intake Total 980 ml 350 ml Output Total 1250 ml 1150 ml Balance -270 ml -800 ml Exam General: Awake, alert, no acute distress CV: Regular rate, s1s2 Lungs: Symmetrical air entry bilaterally, no wheezing Abdomen soft, nontender Extremities without cyanosis, no new swelling Neuro: No new focal changes. Left sided hemiparesis stable. No new sensory changes. Results Result Diagram: 05/14/1608 05/14/16707 Medications Medications Current Medications Acetaminophen (Tylenol Tab) 650 mg Q6H PRN PO PAIN AND OR ELEVATED TEMP; Start 05/13/16 at 21:30 Aspirin (Halfprin) 81 mg DAILY PO Last administered on 05/17/16 08:32; Admin Dose 81 MG; Start 05/14/16 at 09:00 Atorvastatin Calcium (Lipitor) 80 mg HS PO Last administered on 05/16/16 20:47 ; Admin Dose 80 MG; Start 05/13/16 at 21:30 Benztropine Mesylate (Cogentin) 2 mg BID PO Last administered on 05/17/16 08: 31; Admin Dose 2 MG; Start 05/13/16 at 22:00 Clopidogrel Bisulfate (plaVIX) 75 mg DAILY PO Last administered on 05/17/16 08 :33; Admin Dose 75 MG; Start 05/14/16 at 09:00 Docusate Sodium (Colace) 100 mg BID PO Last administered on 05/17/16 08:31; Admin Dose 100 MG; Start 05/13/16 at 21:30 Famotidine (Pepcid) 20 mg BID PO Last administered on 05/17/16 08:32; Admin Dose 20 MG; Start 05/13/16 at 21:30 Fluphenazine HCl (Prolixin) 5 mg BID PO Last administered on 05/17/16 08:33; Admin Dose 5 MG; Start 05/13/16 at 22:00 Amlodipine Besylate (Norvasc) 10 mg DAILY PO Last administered on 05/17/16 08: 32; Admin Dose 10 MG; Start 05/13/16 at 21:30 Bisacodyl (Dulcolax Supp) 10 mg DAILY PRN [place] CONSTIPATION; Start 05/13/16 at 23 :30 Magnesium Hydroxide (Milk Of Mag) 30 ml BID PRN PO CONSTIPATION; Start at 23:30 Lactulose (Enulose) 20 gm DAILY PRN PO CONSTIPATION; Start 05/13/16 at 23:30 Hydralazine HCl (Apresoline) 25 mg Q6H PRN PO ELEVATED BLOOD PRESSURE Last administered on 05/14/16 14:19; Admin Dose 25 MG; Start 05/14/16 at 14:00 Nicotine (Nicoderm 14 Mg/ 24hr) 1 patch DAILY TRANSDERM Last administered on 08:33; Admin Dose 1 PATCH; Start 05/14/16 at 18:00 Carvedilol (Coreg) 6.25 mg BID PO Last administered on 05/17/16 08:32; Admin Dose 6.25 MG; Start 05/14/16 at 21:00 Benazepril HCl (Lotensin) 10 mg BID PO Last administered on 05/17/16 08:32; Admin Dose 10 MG; Start 05/14/16 at 21:00 MINGO KING May 17, 2016 11:18
--- NOTE | 2016-05-17 13:53 | PN ---
Date/Time of Note Date/Time of Note DATE: 05/17/16 TIME: 13:43 Assessment/Plan VTE Prophylaxis VTE Prophylaxis Intervention: LMWH Lines/Catheters IV [facility] Type (from [facility] Saline Lock Urinary Cath still in place: No Assessment/Plan Chief Complaint/Hosp Course ASSESSMENT AND PLAN: 1. Acute on chronic cerebrovascular accident. The patient will be placed on dual antiplatelets, statin. Continue to monitor blood pressure and treat accordingly. 2. Essential hypertension, better controlled continue amlodipine and Coreg also , the patient has been placed on hydralazine p.r.n. 3. Nicotine dependency. Patient has been placed on nicotine patch. 4. Dyslipidemia, on Lipitor. 5. Paranoid schizophrenia. Continue home medications. We will continue to monitor patient closely. Further recommendations, management, and treatment as per clinical course. Problems: Subjective 24 Hr Interval Summary Free Text/Dictation Patient denies of any chest pain or shortness of breath No acute changes Ambulates 40 feet with max assist Exam/Review of Systems Vital Signs Vitals Vital Signs Date Time Temp Pulse Resp B/P Pulse Ox O2 Delivery O2 Flow Rate FiO2 05/17/16 07:30 98.5 58 18 120/76 97 Intake and Output 05/16/16 05/16/16 05/17/16 15:00 23:00 07:00 Intake Total 980 ml 350 ml Output Total 1250 ml 1150 ml Balance -270 ml -800 ml Exam General: The patient is well-developed, Not in acute distress. HEENT: Atraumatic, normocephalic. The pupils are equal and round . Neck: Supple with full range of motion. Chest: Normal expansion of the thorax during inspiration Lungs: Clear to auscultation bilaterally Heart: Normal S1-S2, Regular rhythm and rate. Abdomen: Soft , nontender, nondistended , bowel sounds are present. Extremities: Left upper and lower extremity weakness, no edema no cyanosis Neurologic: Normal mental status,The patient is awake, alert and oriented . Results Result Diagram: 05/14/1608 05/14/16707 Medications Medications Current Medications Acetaminophen (Tylenol Tab) 650 mg Q6H PRN PO PAIN AND OR ELEVATED TEMP; Start 05/13/16 at 21:30 Aspirin (Halfprin) 81 mg DAILY PO Last administered on 05/17/16t 08:32; Admin Dose 81 MG; Start 05/14/16 at 09:00 Atorvastatin Calcium (Lipitor) 80 mg HS PO Last administered on 05/16/16 20:47 ; Admin Dose 80 MG; Start 05/13/16 at 21:30 Benztropine Mesylate (Cogentin) 2 mg BID PO Last administered on 05/17/16 08: 31; Admin Dose 2 MG; Start 05/13/16 at 22:00 Clopidogrel Bisulfate (plaVIX) 75 mg DAILY PO Last administered on 05/17/16 08 :33; Admin Dose 75 MG; Start 05/14/16 at 09:00 Docusate Sodium (Colace) 100 mg BID PO Last administered on 05/17/16 08:31; Admin Dose 100 MG; Start 05/13/16 at 21:30 Famotidine (Pepcid) 20 mg BID PO Last administered on 05/17/16 08:32; Admin Dose 20 MG; Start 05/13/16 at 21:30 Fluphenazine HCl (Prolixin) 5 mg BID PO Last administered on 05/17/16 08:33; Admin Dose 5 MG; Start 05/13/16 at 22:00 Amlodipine Besylate (Norvasc) 10 mg DAILY PO Last administered on 05/17/16 08: 32; Admin Dose 10 MG; Start 05/13/16 at 21:30 Bisacodyl (Dulcolax Supp) 10 mg DAILY PRN [place] CONSTIPATION; Start 05/13/16 at 23 :30 Magnesium Hydroxide (Milk Of Mag) 30 ml BID PRN PO CONSTIPATION; Start at 23:30 Lactulose (Enulose) 20 gm DAILY PRN PO CONSTIPATION; Start 05/13/16 at 23:30 Hydralazine HCl (Apresoline) 25 mg Q6H PRN PO ELEVATED BLOOD PRESSURE Last administered on 05/14/16 14:19; Admin Dose 25 MG; Start 05/14/16 at 14:00 Nicotine (Nicoderm 14 Mg/ 24hr) 1 patch DAILY TRANSDERM Last administered on 08:33; Admin Dose 1 PATCH; Start 05/14/16 at 18:00 Carvedilol (Coreg) 6.25 mg BID PO Last administered on 05/17/16 08:32; Admin Dose 6.25 MG; Start 05/14/16 at 21:00 Benazepril HCl (Lotensin) 10 mg BID PO Last administered on 05/17/16t 08:32; Admin Dose 10 MG; Start 05/14/16 at 21:00 ANKIT BERGER MD May 17, 2016 13:53
--- NOTE | 2016-05-17 16:04 | CONS ---
Date/Time of Note Date/Time of Note DATE: 05/17/16 TIME: 16:02 Assessment/Plan Assessment/Plan Additional Assessment/Plan 1. Hypertension, labile - no acute change - BP stable, will adjust Rx as needed. WILL MONITOR - IAIN now. 2. Dyslipidemia- Rx to goal. 3. Abnormal electrocardiogram, assess for acute coronary syndrome- r/o [place], doubt ischemia.. No intervention planned now. 4. History of recent cerebrovascular accident- now in rehab, feels "numb" on left side, con't rehab. REHAB TO CON'T 5. Ongoing tobacco usage - d/c advised 6. Schizophrenia- on Rx, no agitation now. No agitation now. Consultation Date/Type/Reason Admit Date/Time May 13, 2016 at 19:30 24 HR Interval Summary Free Text/Dictation NO acute change - BP stable - compliant with rehab. ROS: No fever, no chills, no nausea, no vomiting, no diarrhea/constipation No recent weight changes No chest pain, no PND, no orthopnea No dizziness, blurred vision No thirst, no heat or cold intolerance Exam/Review of Systems Vital Signs Vitals Vital Signs Date Time Temp Pulse Resp B/P Pulse Ox O2 Delivery O2 Flow Rate FiO2 05/17/16 07:30 98.5 58 18 120/76 97 Intake and Output 05/16/16 05/16/16 05/17/16 15:00 23:00 07:00 Intake Total 980 ml 350 ml Output Total 1250 ml 1150 ml Balance -270 ml -800 ml Exam General: WN/WD/NAD, AOx 3 HEENT: Unicetric/atraumatic/EOMI (follow commands) NECK: JVD elevated, no thyromegaly Lymph: no lymphadenopathy HEART: regular with no S3, II/ systolic murmur at apex LUNGS: Coarse sounds ABD: soft, NT, ND, +BS : Intact Neuro: L paral s/p CVA SKIN: chronic changes EXT: trace edema Results Result Diagram: 05/14/1608 05/14/16 0708 Medications Medications Current Medications Acetaminophen (Tylenol Tab) 650 mg Q6H PRN PO PAIN AND OR ELEVATED TEMP; Start 05/13/16 at 21:30 Aspirin (Halfprin) 81 mg DAILY PO Last administered on 05/17/16t 08:32; Admin Dose 81 MG; Start 05/14/16 at 09:00 Atorvastatin Calcium (Lipitor) 80 mg HS PO Last administered on 05/16/16 20:47 ; Admin Dose 80 MG; Start 05/13/16 at 21:30 Benztropine Mesylate (Cogentin) 2 mg BID PO Last administered on 05/17/16 08: 31; Admin Dose 2 MG; Start 05/13/16 at 22:00 Clopidogrel Bisulfate (plaVIX) 75 mg DAILY PO Last administered on 05/17/16 08 :33; Admin Dose 75 MG; Start 05/14/16 at 09:00 Docusate Sodium (Colace) 100 mg BID PO Last administered on 05/17/16 08:31; Admin Dose 100 MG; Start 05/13/16 at 21:30 Famotidine (Pepcid) 20 mg BID PO Last administered on 05/17/16 08:32; Admin Dose 20 MG; Start 05/13/16 at 21:30 Fluphenazine HCl (Prolixin) 5 mg BID PO Last administered on 05/17/16 08:33; Admin Dose 5 MG; Start 05/13/16 at 22:00 Amlodipine Besylate (Norvasc) 10 mg DAILY PO Last administered on 05/17/16 08: 32; Admin Dose 10 MG; Start 05/13/16 at 21:30 Bisacodyl (Dulcolax Supp) 10 mg DAILY PRN [place] CONSTIPATION; Start 05/13/16 at 23 :30 Magnesium Hydroxide (Milk Of Mag) 30 ml BID PRN PO CONSTIPATION; Start at 23:30 Lactulose (Enulose) 20 gm DAILY PRN PO CONSTIPATION; Start 05/13/16 at 23:30 Hydralazine HCl (Apresoline) 25 mg Q6H PRN PO ELEVATED BLOOD PRESSURE Last administered on 05/14/16 14:19; Admin Dose 25 MG; Start 05/14/16 at 14:00 Nicotine (Nicoderm 14 Mg/ 24hr) 1 patch DAILY TRANSDERM Last administered on 08:33; Admin Dose 1 PATCH; Start 05/14/16 at 18:00 Carvedilol (Coreg) 6.25 mg BID PO Last administered on 05/17/16 08:32; Admin Dose 6.25 MG; Start 05/14/16 at 21:00 Benazepril HCl (Lotensin) 10 mg BID PO Last administered on 05/17/16 08:32; Admin Dose 10 MG; Start 05/14/16 at 21:00 MIRTHA BAUGH MD May 17, 2016 16:04
[2016-05-17 19:53] VITALS: BP 143/90; RESP 20
[2016-05-17] MEDS: ATORVASTATIN 80 MG TAB PO SCH (20:12)
[2016-05-18 07:30] VITALS: BP 139/82; RESP 18
[2016-05-18] MEDS: ASPIRIN (EC) 81 MG TAB PO SCH (09:14)
[2016-05-18] MEDS: BENZTROPINE 1 MG TAB PO SCH ×2 (09:14→21:18)
[2016-05-18] MEDS: DOCUSATE SODIUM 100 MG CAP PO SCH ×2 (09:14→21:17)
[2016-05-18] MEDS: BENAZEPRIL 10 MG TAB PO SCH ×2 (09:15→21:18)
[2016-05-18] MEDS: CLOPIDOGREL 75 MG TAB PO SCH (09:15)
[2016-05-18] MEDS: FLUPHENAZINE 5 MG TAB PO SCH ×2 (09:15→21:17)
[2016-05-18] MEDS: FAMOTIDINE 20 MG TAB PO SCH ×2 (09:15→21:18)
[2016-05-18] MEDS: AMLODIPINE 10 MG TAB PO SCH (09:15)
[2016-05-18] MEDS: NICOTINE (14 MG/24 HR) PATCH TRANSDERM SCH (09:16)
--- NOTE | 2016-05-18 09:23 | CONS ---
Date/Time of Note Date/Time of Note DATE: 05/18/16 TIME: 09:20 Assessment/Plan Assessment/Plan Additional Assessment/Plan 1. Hypertension, labile - no acute change - BP stable, will adjust Rx as needed. WILL MONITOR - IAIN now. 2. Dyslipidemia- Rx to goal. 3. Abnormal electrocardiogram, assess for acute coronary syndrome- r/o [place], doubt ischemia.. No intervention planned now. 4. History of recent cerebrovascular accident- now in rehab, feels "numb" on left side, con't rehab. REHAB TO CON'T - doing well 5. Ongoing tobacco usage - d/c advised 6. Schizophrenia- on Rx, no agitation now. No agitation now. 7. h/o abn ECG - no CP now, will follow Consultation Date/Type/Reason Admit Date/Time May 13, 2016 at 19:30 24 HR Interval Summary Free Text/Dictation NO acute change - BP well Rx, will monitor clinically now - doing well in rehab ROS: No fever, no chills, no nausea, no vomiting, no diarrhea/constipation No recent weight changes No chest pain, no PND, no orthopnea No dizziness, blurred vision No thirst, no heat or cold intolerance Exam/Review of Systems Vital Signs Vitals Vital Signs Date Time Temp Pulse Resp B/P Pulse Ox O2 Delivery O2 Flow Rate FiO2 05/18/16 07:30 98.6 62 18 139/82 97 Intake and Output 05/17/16 05/17/16 05/18/16 15:00 23:00 07:00 Intake Total 1160 ml 500 ml Output Total 1290 ml 500 ml Balance -130 ml 0 ml Exam General: WN/WD/NAD, AOx 3 HEENT: Unicetric/atraumatic/EOMI (follow commands) NECK: JVD elevated, no thyromegaly Lymph: no lymphadenopathy HEART: regular with no S3, II/ systolic murmur at apex LUNGS: Coarse sounds ABD: soft, NT, ND, +BS : Intact Neuro: s/p CVA SKIN: chronic changes EXT: trace edema Results Result Diagram: 05/14/1670705/14/16707 Medications Medications Current Medications Acetaminophen (Tylenol Tab) 650 mg Q6H PRN PO PAIN AND OR ELEVATED TEMP; Start 05/13/16 at 21:30 Aspirin (Halfprin) 81 mg DAILY PO Last administered on 05/18/16 09:14; Admin Dose 81 MG; Start 05/14/16 at 09:00 Atorvastatin Calcium (Lipitor) 80 mg HS PO Last administered on 05/17/16 20:12 ; Admin Dose 80 MG; Start 05/13/16 at 21:30 Benztropine Mesylate (Cogentin) 2 mg BID PO Last administered on 05/18/16 09: 14; Admin Dose 2 MG; Start 05/13/16 at 22:00 Clopidogrel Bisulfate (plaVIX) 75 mg DAILY PO Last administered on 05/18/16 09 :15; Admin Dose 75 MG; Start 05/14/16 at 09:00 Docusate Sodium (Colace) 100 mg BID PO Last administered on 05/18/16 09:14; Admin Dose 100 MG; Start 05/13/16 at 21:30 Famotidine (Pepcid) 20 mg BID PO Last administered on 05/18/16 09:15; Admin Dose 20 MG; Start 05/13/16 at 21:30 Fluphenazine HCl (Prolixin) 5 mg BID PO Last administered on 05/18/16 09:15; Admin Dose 5 MG; Start 05/13/16 at 22:00 Amlodipine Besylate (Norvasc) 10 mg DAILY PO Last administered on 05/18/16 09: 15; Admin Dose 10 MG; Start 05/13/16 at 21:30 Bisacodyl (Dulcolax Supp) 10 mg DAILY PRN [place] CONSTIPATION; Start 05/13/16 at 23 :30 Magnesium Hydroxide (Milk Of Mag) 30 ml BID PRN PO CONSTIPATION; Start at 23:30 Lactulose (Enulose) 20 gm DAILY PRN PO CONSTIPATION; Start 05/13/16 at 23:30 Hydralazine HCl (Apresoline) 25 mg Q6H PRN PO ELEVATED BLOOD PRESSURE Last administered on 05/14/16 14:19; Admin Dose 25 MG; Start 05/14/16 at 14:00 Nicotine (Nicoderm 14 Mg/ 24hr) 1 patch DAILY TRANSDERM Last administered on 09:16; Admin Dose 1 PATCH; Start 05/14/16 at 18:00 Carvedilol (Coreg) 6.25 mg BID PO Last administered on 05/18/16 09:14; Admin Dose 6.25 MG; Start 05/14/16 at 21:00 Benazepril HCl (Lotensin) 10 mg BID PO Last administered on 05/18/16 09:15; Admin Dose 10 MG; Start 05/14/16 at 21:00 MIRTHA BAUGH MD May 18, 2016 09:23
--- NOTE | 2016-05-18 12:52 | CONS ---
Date/Time of Note Date/Time of Note DATE: 05/18/16 TIME: 12:52 Consult Date/Type/Reason Admit Date/Time May 13, 2016 at 19:30 Subjective Patient had difficulty sleeping last PM Objective pulm- cta card- s1s2 INTERDISCIPLINARY TEAM CONFERENCE BOWEL- Cont BLADDER-Cont SKIN- intact OT- DRESSING-min/mod BATHING-min/mod TOILETING-min/mod PT- BED MOBILITY-min TRANSFERS-mod AMBULATION-mod/max 70 feet W.C. MOBILITY-min SPEECH- COGNITION-mod DYPHAGIA-mech soft A/P- Interdisciplinary team conference held today. Please see interdisciplinary sheet. Working toward d.c. on 05/22 to supervised environment with post discharge follow up of physical therapy, occupational therapy. Vital Signs Date Time Temp Pulse Resp B/P Pulse Ox O2 Delivery O2 Flow Rate FiO2 05/18/16 07:30 98.6 62 18 139/82 97 Intake and Output 05/17/16 05/17/16 05/18/16 15:00 23:00 07:00 Intake Total 1160 ml 500 ml Output Total 1290 ml 500 ml Balance -130 ml 0 ml Results/Medications Result Diagram: 05/14/16 0708 05/14/16 0708 Medications Current Medications Acetaminophen (Tylenol Tab) 650 mg Q6H PRN PO PAIN AND OR ELEVATED TEMP; Start 05/13/16 at 21:30 Aspirin (Halfprin) 81 mg DAILY PO Last administered on 05/18/16 09:14; Admin Dose 81 MG; Start 05/14/16 at 09:00 Atorvastatin Calcium (Lipitor) 80 mg HS PO Last administered on 05/17/16 20:12 ; Admin Dose 80 MG; Start 05/13/16 at 21:30 Benztropine Mesylate (Cogentin) 2 mg BID PO Last administered on 05/18/16 09: 14; Admin Dose 2 MG; Start 05/13/16 at 22:00 Clopidogrel Bisulfate (plaVIX) 75 mg DAILY PO Last administered on 05/18/16 09 :15; Admin Dose 75 MG; Start 05/14/16 at 09:00 Docusate Sodium (Colace) 100 mg BID PO Last administered on 05/18/16 09:14; Admin Dose 100 MG; Start 05/13/16 at 21:30 Famotidine (Pepcid) 20 mg BID PO Last administered on 05/18/16 09:15; Admin Dose 20 MG; Start 05/13/16 at 21:30 Fluphenazine HCl (Prolixin) 5 mg BID PO Last administered on 05/18/16 09:15; Admin Dose 5 MG; Start 05/13/16 at 22:00 Amlodipine Besylate (Norvasc) 10 mg DAILY PO Last administered on 05/18/16 09: 15; Admin Dose 10 MG; Start 05/13/16 at 21:30 Bisacodyl (Dulcolax Supp) 10 mg DAILY PRN [place] CONSTIPATION; Start 05/13/16 at 23 :30 Magnesium Hydroxide (Milk Of Mag) 30 ml BID PRN PO CONSTIPATION; Start at 23:30 Lactulose (Enulose) 20 gm DAILY PRN PO CONSTIPATION; Start 05/13/16 at 23:30 Hydralazine HCl (Apresoline) 25 mg Q6H PRN PO ELEVATED BLOOD PRESSURE Last administered on 05/14/16 14:19; Admin Dose 25 MG; Start 05/14/16 at 14:00 Nicotine (Nicoderm 14 Mg/ 24hr) 1 patch DAILY TRANSDERM Last administered on 09:16; Admin Dose 1 PATCH; Start 05/14/16 at 18:00 Carvedilol (Coreg) 6.25 mg BID PO Last administered on 05/18/16 09:14; Admin Dose 6.25 MG; Start 05/14/16 at 21:00 Benazepril HCl (Lotensin) 10 mg BID PO Last administered on 05/18/16 09:15; Admin Dose 10 MG; Start 05/14/16 at 21:00 RUFINA REAGAN MD May 18, 2016 12:52
--- NOTE | 2016-05-18 14:35 | PN ---
Date/Time of Note Date/Time of Note DATE: 05/18/16 TIME: 14:34 Assessment/Plan VTE Prophylaxis VTE Prophylaxis Intervention: heparin Lines/Catheters IV [facility] Saline Lock Urinary Cath still in place: No Assessment/Plan Chief Complaint/Hosp Course ASSESSMENT AND PLAN: 1. Acute on chronic cerebrovascular accident. The patient will be placed on dual antiplatelets, statin. Continue to monitor blood pressure and treat accordingly. 2. Essential hypertension, better controlled continue amlodipine and Coreg also , the patient has been placed on hydralazine p.r.n. 3. Nicotine dependency. Patient has been placed on nicotine patch. 4. Dyslipidemia, on Lipitor. 5. Paranoid schizophrenia. Continue home medications. We will continue to monitor patient closely. Further recommendations, management, and treatment as per clinical course. Problems: Subjective 24 Hr Interval Summary Free Text/Dictation Patient denies of any chest pain or shortness of breath No acute changes Tolerating oral intake Exam/Review of Systems Vital Signs Vitals Vital Signs Date Time Temp Pulse Resp B/P Pulse Ox O2 Delivery O2 Flow Rate FiO2 05/18/16 07:30 98.6 62 18 139/82 97 Intake and Output 05/17/16 05/17/16 05/18/16 15:00 23:00 07:00 Intake Total 1160 ml 500 ml Output Total 1290 ml 500 ml Balance -130 ml 0 ml Exam General: The patient is well-developed, Not in acute distress. HEENT: Atraumatic, normocephalic. The pupils are equal and round . Neck: Supple with full range of motion. Chest: Normal expansion of the thorax during inspiration Lungs: Clear to auscultation bilaterally Heart: Normal S1-S2, Regular rhythm and rate. Abdomen: Soft , nontender, nondistended , bowel sounds are present. Extremities: Left upper and lower extremity weakness , no edema no cyanosis Neurologic: Normal mental status,The patient is awake, alert and oriented . Results Result Diagram: 05/14/1608 05/14/16 0708 Medications Medications Current Medications Acetaminophen (Tylenol Tab) 650 mg Q6H PRN PO PAIN AND OR ELEVATED TEMP; Start 05/13/16 at 21:30 Aspirin (Halfprin) 81 mg DAILY PO Last administered on 05/18/16t 09:14; Admin Dose 81 MG; Start 05/14/16 at 09:00 Atorvastatin Calcium (Lipitor) 80 mg HS PO Last administered on 05/17/16 20:12 ; Admin Dose 80 MG; Start 05/13/16 at 21:30 Benztropine Mesylate (Cogentin) 2 mg BID PO Last administered on 05/18/16 09: 14; Admin Dose 2 MG; Start 05/13/16 at 22:00 Clopidogrel Bisulfate (plaVIX) 75 mg DAILY PO Last administered on 05/18/16 09 :15; Admin Dose 75 MG; Start 05/14/16 at 09:00 Docusate Sodium (Colace) 100 mg BID PO Last administered on 05/18/16 09:14; Admin Dose 100 MG; Start 05/13/16 at 21:30 Famotidine (Pepcid) 20 mg BID PO Last administered on 05/18/16 09:15; Admin Dose 20 MG; Start 05/13/16 at 21:30 Fluphenazine HCl (Prolixin) 5 mg BID PO Last administered on 05/18/16 09:15; Admin Dose 5 MG; Start 05/13/16 at 22:00 Amlodipine Besylate (Norvasc) 10 mg DAILY PO Last administered on 05/18/16 09: 15; Admin Dose 10 MG; Start 05/13/16 at 21:30 Bisacodyl (Dulcolax Supp) 10 mg DAILY PRN [place] CONSTIPATION; Start 05/13/16 at 23 :30 Magnesium Hydroxide (Milk Of Mag) 30 ml BID PRN PO CONSTIPATION; Start at 23:30 Lactulose (Enulose) 20 gm DAILY PRN PO CONSTIPATION; Start 05/13/16 at 23:30 Hydralazine HCl (Apresoline) 25 mg Q6H PRN PO ELEVATED BLOOD PRESSURE Last administered on 05/14/16 14:19; Admin Dose 25 MG; Start 05/14/16 at 14:00 Nicotine (Nicoderm 14 Mg/ 24hr) 1 patch DAILY TRANSDERM Last administered on 09:16; Admin Dose 1 PATCH; Start 05/14/16 at 18:00 Carvedilol (Coreg) 6.25 mg BID PO Last administered on 05/18/16 09:14; Admin Dose 6.25 MG; Start 05/14/16 at 21:00 Benazepril HCl (Lotensin) 10 mg BID PO Last administered on 05/18/16t 09:15; Admin Dose 10 MG; Start 05/14/16 at 21:00 ANKIT BERGER MD May 18, 2016 14:35
--- NOTE | 2016-05-18 16:09 | PSY ---
Date/Time of Note Date/Time of Note DATE: 05/18/16 TIME: 15:49 Psychiatric Subjective Eval Consent Pt consented to telemedicine: Yes Subjective Evaluation Patient location: inpatient Chief Complaint: Increase in paranoid thoughts and agitation. Reason for consult: Medication Management. History of present illness This is a 60 year old male who has a history of paranoid schizophrenia who also has a prior history of a stroke about 1 year ago as well as hypertension and dyslipidemia. He presented on May 03, with left-sided weakness. He was He had a stroke about a year ago with minimal residual of scotoma in the left eye. He states that he has history of hypertension and he goes to [facility], and he takes multiple different medications for blood pressure. Also he is given medication for cholesterol. He takes baby aspirin, prior to admission he was taking. He has been maintained on Benztropine 2mg daily and Prolixin Decanoate every 2 weeks. He was due for his shot on May 15, 2016. A psychiatric consult was requested as he has since become more paranoid and irritable. He has been sleeping less. When I interviewed the patient he initially was agitated, guarded and hostile. He was upset about having been given Haldol IM sometime before. He later became more cooperative and friendly. He said that he was over due for his shot of prolixin, and would feel better once he gets it. Past Psychiatric History: He has been under the care of a [place] psychiatrist for over 40 years. He has been stable on Prolixin 25mg decanoate 25mg every 2 weeks. He did not tolerate Risperdal well as he became "prediabetic". ALLERGIES: NONE. SOCIAL HISTORY: Cigarette smoker: No. Drugs: Denies drug use and alcohol. He is single and not . FAMILY HISTORY: Not contributory. Results Result Diagram: 05/14/1608 05/14/16 0708 Medications Medications Current Medications Acetaminophen (Tylenol Tab) 650 mg Q6H PRN PO PAIN AND OR ELEVATED TEMP; Start 05/13/16 at 21:30 Aspirin (Halfprin) 81 mg DAILY PO Last administered on 05/18/16 09:14; Admin Dose 81 MG; Start 05/14/16 at 09:00 Atorvastatin Calcium (Lipitor) 80 mg HS PO Last administered on 05/17/16 20:12 ; Admin Dose 80 MG; Start 05/13/16 at 21:30 Benztropine Mesylate (Cogentin) 2 mg BID PO Last administered on 05/18/16 09: 14; Admin Dose 2 MG; Start 05/13/16 at 22:00 Clopidogrel Bisulfate (plaVIX) 75 mg DAILY PO Last administered on 05/18/16 09 :15; Admin Dose 75 MG; Start 05/14/16 at 09:00 Docusate Sodium (Colace) 100 mg BID PO Last administered on 05/18/16 09:14; Admin Dose 100 MG; Start 05/13/16 at 21:30 Famotidine (Pepcid) 20 mg BID PO Last administered on 05/18/16 09:15; Admin Dose 20 MG; Start 05/13/16 at 21:30 Fluphenazine HCl (Prolixin) 5 mg BID PO Last administered on 05/18/16 09:15; Admin Dose 5 MG; Start 05/13/16 at 22:00 Amlodipine Besylate (Norvasc) 10 mg DAILY PO Last administered on 05/18/16 09: 15; Admin Dose 10 MG; Start 05/13/16 at 21:30 Bisacodyl (Dulcolax Supp) 10 mg DAILY PRN [place] CONSTIPATION; Start 05/13/16 at 23 :30 Magnesium Hydroxide (Milk Of Mag) 30 ml BID PRN PO CONSTIPATION; Start at 23:30 Lactulose (Enulose) 20 gm DAILY PRN PO CONSTIPATION; Start 05/13/16 at 23:30 Hydralazine HCl (Apresoline) 25 mg Q6H PRN PO ELEVATED BLOOD PRESSURE Last administered on 05/14/16 14:19; Admin Dose 25 MG; Start 05/14/16 at 14:00 Nicotine (Nicoderm 14 Mg/ 24hr) 1 patch DAILY TRANSDERM Last administered on 09:16; Admin Dose 1 PATCH; Start 05/14/16 at 18:00 Carvedilol (Coreg) 6.25 mg BID PO Last administered on 05/18/16 09:14; Admin Dose 6.25 MG; Start 05/14/16 at 21:00 Benazepril HCl (Lotensin) 10 mg BID PO Last administered on 05/18/16 09:15; Admin Dose 10 MG; Start 05/14/16 at 21:00 LABORATORY DATA: Essentially normal CBC, comprehensive metabolic panel. Cholesterol 211 and LDL 141. PT 12, PTT 29. Urinalysis negative. Tox screen is negative for drugs. IMAGING: The patient had chest x-ray. No acute disease. Brain CAT scan shows subtle low-attenuation focus in the anterior limb of the right internal capsule. ELECTROCARDIOGRAM: Sinus bradycardia. Medical history Problems Medical Problems: (1) CVA (cerebral vascular accident) Status: Acute (2) Left leg weakness Status: Acute (3) Left-sided weakness Status: Acute Allergies: Coded Allergies: No Known Allergy (Unverified , 05/11/16) Substance Abuse Substance use: No known substance abuse Social History Marital status: single DPA/Conservatorship: No Psychiatric Objective Eval Review of Systems: Review of Systems: Applicable Constitutional: Normal Eyes: Normal ENT: Normal Neck: Normal Respiratory: Normal Chest/Breast: Normal Cardiovascular: Normal GI: Normal Genitourinary: Normal Skin: Normal Lymphatic: Normal Musculoskeletal: Normal Neurological: Normal Mental Status Examination: Appearance: Groomed Psychomotor Activity: Agitated Behavior: Guarded Speech: Pressured AFFECT: Other Mood: Irritable Though Process: Linear, Tangential Thought Content: Delusions Suicidal: No Homicidal: No On 72 hour hold: No Orientation: x4 Cognition: Alert Insight: Mild Judgement: Mild Attention Span: Intact Assessment and Plan Assessment/Diagnosis Vernon I: F20.0 Schizophrenia, paranoid type. Vernon II: deferred Vernon III: S/P CVA, left sided weakness Vernon IV: problems with housing. Vernon V: 40 Recommendation/Plan Medication Management Continue Prolixin 5mg po bid on a prn basis until the injection stabilizes for 2 days. Then provide Prolixin 5mg po prn hallucinations and paranoid ideation ever 12 hours. Resume Prolixin Decanoate 25mg IM ever 2 weeks. CLARITA MCNEAL MD May 18, 2016 16:02
[2016-05-18 20:00] VITALS: BP 125/81; PULSE 67
[2016-05-18 20:48] VITALS: BP 121/78; RESP 18
[2016-05-18] MEDS: ATORVASTATIN 80 MG TAB PO SCH (21:17)
[2016-05-19 08:00] VITALS: BP 118/76; PULSE 65
[2016-05-19] MEDS: NICOTINE (14 MG/24 HR) PATCH TRANSDERM SCH (08:58)
[2016-05-19] MEDS: BENZTROPINE 1 MG TAB PO SCH ×2 (08:59→20:52)
[2016-05-19] MEDS: FAMOTIDINE 20 MG TAB PO SCH ×2 (08:59→20:54)
[2016-05-19] MEDS: FLUPHENAZINE 5 MG TAB PO SCH ×2 (08:59→20:54)
[2016-05-19] MEDS: DOCUSATE SODIUM 100 MG CAP PO SCH ×2 (08:59→20:52)
[2016-05-19] MEDS: CLOPIDOGREL 75 MG TAB PO SCH (08:59)
[2016-05-19] MEDS: ASPIRIN (EC) 81 MG TAB PO SCH (08:59)
[2016-05-19] MEDS: BENAZEPRIL 10 MG TAB PO SCH ×2 (09:00→20:54)
[2016-05-19] MEDS: AMLODIPINE 10 MG TAB PO SCH (09:01)
--- NOTE | 2016-05-19 10:56 | CONS ---
Date/Time of Note Date/Time of Note DATE: 05/19/16 TIME: 10:52 Consult Date/Type/Reason Admit Date/Time May 13, 2016 at 19:30 Subjective Patient conference held today with patient and social work reviewing disposition options. When patient arrived to unit, he requested to go to [place]. SW has been working on transfer to [place], however it does not appear to be an option at this time. Patient currently agreeable to improving functional status on rehab, and working towards home with supervision. Objective pulm- cta card-s1s2 abd-soft min assist transfer sba wc propulsion Vital Signs Date Time Temp Pulse Resp B/P Pulse Ox O2 Delivery O2 Flow Rate FiO2 05/19/16 08:00 97.5 65 118/76 96 Room Air 05/18/16 20:48 18 Intake and Output 05/18/16 05/18/16 05/19/16 15:00 23:00 07:00 Intake Total 1200 ml 1350 ml Output Total 2000 ml 350 ml Balance -800 ml 1000 ml Results/Medications Medications Current Medications Acetaminophen (Tylenol Tab) 650 mg Q6H PRN PO PAIN AND OR ELEVATED TEMP; Start 05/13/16 at 21:30 Aspirin (Halfprin) 81 mg DAILY PO Last administered on 05/19/16 08:59; Admin Dose 81 MG; Start 05/14/16 at 09:00 Atorvastatin Calcium (Lipitor) 80 mg HS PO Last administered on 05/18/16 21:17 ; Admin Dose 80 MG; Start 05/13/16 at 21:30 Benztropine Mesylate (Cogentin) 2 mg BID PO Last administered on 05/19/16 08: 59; Admin Dose 2 MG; Start 05/13/16 at 22:00 Clopidogrel Bisulfate (plaVIX) 75 mg DAILY PO Last administered on 05/19/16 08 :59; Admin Dose 75 MG; Start 05/14/16 at 09:00 Docusate Sodium (Colace) 100 mg BID PO Last administered on 05/19/16 08:59; Admin Dose 100 MG; Start 05/13/16 at 21:30 Famotidine (Pepcid) 20 mg BID PO Last administered on 05/19/16 08:59; Admin Dose 20 MG; Start 05/13/16 at 21:30 Fluphenazine HCl (Prolixin) 5 mg BID PO Last administered on 05/19/16 08:59; Admin Dose 5 MG; Start 05/13/16 at 22:00 Amlodipine Besylate (Norvasc) 10 mg DAILY PO Last administered on 05/19/16 09: 01; Admin Dose 10 MG; Start 05/13/16 at 21:30 Bisacodyl (Dulcolax Supp) 10 mg DAILY PRN [place] CONSTIPATION; Start 05/13/16 at 23 :30 Magnesium Hydroxide (Milk Of Mag) 30 ml BID PRN PO CONSTIPATION; Start at 23:30 Lactulose (Enulose) 20 gm DAILY PRN PO CONSTIPATION; Start 05/13/16 at 23:30 Hydralazine HCl (Apresoline) 25 mg Q6H PRN PO ELEVATED BLOOD PRESSURE Last administered on 05/14/16 14:19; Admin Dose 25 MG; Start 05/14/16 at 14:00 Nicotine (Nicoderm 14 Mg/ 24hr) 1 patch DAILY TRANSDERM Last administered on 08:58; Admin Dose 1 PATCH; Start 05/14/16 at 18:00 Carvedilol (Coreg) 6.25 mg BID PO Last administered on 05/19/16 09:03; Admin Dose 6.25 MG; Start 05/14/16 at 21:00 Benazepril HCl (Lotensin) 10 mg BID PO Last administered on 05/19/16 09:00; Admin Dose 10 MG; Start 05/14/16 at 21:00 Assessment/Plan Additional Assessment/Plan Rehab- 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 Improved participation/motivation with the rehab program Continue treatment plan. Hypertension. Anemia. Dyslipidemia. psych- stable Dysphagia- speech RUFINA REAGAN MD May 19, 2016 10:56
--- NOTE | 2016-05-19 17:38 | RADRPT ---
Vent Rate: 72 bpm RR Interval: 0 msec PA Interval: 138 msec QRS Duration: 90 msec QT Interval: 400 msec QTC Interval: 438 msec P-R-T [place]: 72 - 74 - 59 degrees Normal sinus rhythm Normal ECG Electronically Signed By: Priyank Yeager [id number]
--- NOTE | 2016-05-19 17:45 | RADRPT ---
Vent Rate: 65 bpm RR Interval: 0 msec [place] Interval: 136 msec QRS Duration: 88 msec QT Interval: 424 msec QTC Interval: 440 msec P-R-T [place]: 68 - 73 - 58 degrees Normal sinus rhythm Nonspecific ST elevation Abnormal ECG Electronically Signed By: Priyank Yeager [id number]
[2016-05-19] MEDS: ATORVASTATIN 80 MG TAB PO SCH (20:54)
[2016-05-19 21:36] VITALS: BP 116/71; RESP 18
[2016-05-20 07:30] VITALS: BP 111/70; RESP 18
[2016-05-20] MEDS: FAMOTIDINE 20 MG TAB PO SCH ×2 (08:46→21:07)
[2016-05-20] MEDS: NICOTINE (14 MG/24 HR) PATCH TRANSDERM SCH (08:46)
[2016-05-20] MEDS: CLOPIDOGREL 75 MG TAB PO SCH (08:46)
[2016-05-20] MEDS: BENZTROPINE 1 MG TAB PO SCH ×2 (08:46→21:06)
[2016-05-20] MEDS: FLUPHENAZINE 5 MG TAB PO SCH ×2 (08:46→21:07)
[2016-05-20] MEDS: ASPIRIN (EC) 81 MG TAB PO SCH (08:47)
[2016-05-20] MEDS: DOCUSATE SODIUM 100 MG CAP PO SCH ×2 (08:47→21:07)
[2016-05-20] MEDS: AMLODIPINE 10 MG TAB PO SCH (08:47)
[2016-05-20] MEDS: BENAZEPRIL 10 MG TAB PO SCH ×2 (08:47→21:10)
[2016-05-20] MEDS: ACETAMINOPHEN 325 MG TAB PO PRN (10:38)
--- NOTE | 2016-05-20 12:18 | PN ---
Date/Time of Note Date/Time of Note DATE: 05/20/16 TIME: 12:15 Assessment/Plan VTE Prophylaxis VTE Prophylaxis Intervention: SCD's Lines/Catheters [facility] Saline Lock Urinary Cath still in place: No Assessment/Plan Assessment/Plan 1. Acute on chronic cerebrovascular accident - BP control , on ASA and plavix for dual antiplatelet therapy for Stroke prevention 2. Essential hypertension, better controlled continue amlodipine and Coreg also , the patient has been placed on hydralazine p.r.n. 3. Nicotine dependency. Patient has been placed on nicotine patch. 4. Dyslipidemia, on Lipitor. 5. Paranoid schizophrenia. Continue home medications. Subjective 24 Hr Interval Summary Free Text/Dictation pt stable, no acute events Exam/Review of Systems Vital Signs Vitals Vital Signs Date Time Temp Pulse Resp B/P Pulse Ox O2 Delivery O2 Flow Rate FiO2 05/19/16 21:36 98.1 72 18 116/71 98 05/19/16 08:00 Room Air Intake and Output 05/19/16 05/19/16 05/20/16 15:00 23:00 07:00 Intake Total 480 ml 1150 ml Output Total 700 ml 400 ml Balance -220 ml 750 ml Exam Constitutional: alert Psych: no complaints Eyes: nl conjunctiva ENMT: nl external ears & nose Neck: supple Respiratory: clear to auscultation Cardiovascular: regular rate and rhythm Gastrointestinal: soft Extremities: other (LUE weakness ) Medications Medications Current Medications Acetaminophen (Tylenol Tab) 650 mg Q6H PRN PO PAIN AND OR ELEVATED TEMP Last administered on 05/20/16 10:38; Admin Dose 650 MG; Start 05/13/16 at 21:30 Aspirin (Halfprin) 81 mg DAILY PO Last administered on 05/20/16 08:47; Admin Dose 81 MG; Start 05/14/16 at 09:00 Atorvastatin Calcium (Lipitor) 80 mg HS PO Last administered on 05/19/16 20:54 ; Admin Dose 80 MG; Start 05/13/16 at 21:30 Benztropine Mesylate (Cogentin) 2 mg BID PO Last administered on 05/20/16 08:46 ; Admin Dose 2 MG; Start 05/13/16 at 22:00 Clopidogrel Bisulfate (plaVIX) 75 mg DAILY PO Last administered on 05/20/16 08: 46; Admin Dose 75 MG; Start 05/14/16 at 09:00 Docusate Sodium (Colace) 100 mg BID PO Last administered on 05/20/16 08:47; Admin Dose 100 MG; Start 05/13/16 at 21:30 Famotidine (Pepcid) 20 mg BID PO Last administered on 05/20/16 08:46; Admin Dose 20 MG; Start 05/13/16 at 21:30 Fluphenazine HCl (Prolixin) 5 mg BID PO Last administered on 05/20/16 08:46; Admin Dose 5 MG; Start 05/13/16 at 22:00 Amlodipine Besylate (Norvasc) 10 mg DAILY PO Last administered on 05/20/16 08: 47; Admin Dose 10 MG; Start 05/13/16 at 21:30 Bisacodyl (Dulcolax Supp) 10 mg DAILY PRN [place] CONSTIPATION; Start 05/13/16 at 23 :30 Magnesium Hydroxide (Milk Of Mag) 30 ml BID PRN PO CONSTIPATION; Start at 23:30 Lactulose (Enulose) 20 gm DAILY PRN PO CONSTIPATION; Start 05/13/16 at 23:30 Hydralazine HCl (Apresoline) 25 mg Q6H PRN PO ELEVATED BLOOD PRESSURE Last administered on 05/14/16 14:19; Admin Dose 25 MG; Start 05/14/16 at 14:00 Nicotine (Nicoderm 14 Mg/ 24hr) 1 patch DAILY TRANSDERM Last administered on 08:46; Admin Dose 1 PATCH; Start 05/14/16 at 18:00 Carvedilol (Coreg) 6.25 mg BID PO Last administered on 05/20/16 08:46; Admin Dose 6.25 MG; Start 05/14/16 at 21:00 Benazepril HCl (Lotensin) 10 mg BID PO Last administered on 05/20/16 08:47; Admin Dose 10 MG; Start 05/14/16 at 21:00 SUZY PATEL MD May 20, 2016 12:18
--- NOTE | 2016-05-20 13:14 | CONS ---
Date/Time of Note Date/Time of Note DATE: 05/20/16 TIME: 13:14 Consult Date/Type/Reason Admit Date/Time May 13, 2016 at 19:30 Subjective Calm, no new complaints Objective pulm-cta abd-soft mod/max ambulation Vital Signs Date Time Temp Pulse Resp B/P Pulse Ox O2 Delivery O2 Flow Rate FiO2 05/19/16 21:36 98.1 72 18 116/71 98 05/19/16 08:00 Room Air Intake and Output 05/19/16 05/19/16 05/20/16 14:59 22:59 06:59 Intake Total 480 ml 1150 ml Output Total 700 ml 400 ml Balance -220 ml 750 ml Results/Medications Medications Current Medications Acetaminophen (Tylenol Tab) 650 mg Q6H PRN PO PAIN AND OR ELEVATED TEMP Last administered on 05/20/16 10:38; Admin Dose 650 MG; Start 05/13/16 at 21:30 Aspirin (Halfprin) 81 mg DAILY PO Last administered on 05/20/16 08:47; Admin Dose 81 MG; Start 05/14/16 at 09:00 Atorvastatin Calcium (Lipitor) 80 mg HS PO Last administered on 05/19/16 20:54 ; Admin Dose 80 MG; Start 05/13/16 at 21:30 Benztropine Mesylate (Cogentin) 2 mg BID PO Last administered on 05/20/16 08:46 ; Admin Dose 2 MG; Start 05/13/16 at 22:00 Clopidogrel Bisulfate (plaVIX) 75 mg DAILY PO Last administered on 05/20/16 08: 46; Admin Dose 75 MG; Start 05/14/16 at 09:00 Docusate Sodium (Colace) 100 mg BID PO Last administered on 05/20/16 08:47; Admin Dose 100 MG; Start 05/13/16 at 21:30 Famotidine (Pepcid) 20 mg BID PO Last administered on 05/20/16 08:46; Admin Dose 20 MG; Start 05/13/16 at 21:30 Fluphenazine HCl (Prolixin) 5 mg BID PO Last administered on 05/20/16 08:46; Admin Dose 5 MG; Start 05/13/16 at 22:00 Amlodipine Besylate (Norvasc) 10 mg DAILY PO Last administered on 05/20/16 08: 47; Admin Dose 10 MG; Start 05/13/16 at 21:30 Bisacodyl (Dulcolax Supp) 10 mg DAILY PRN [place] CONSTIPATION; Start 05/13/16 at 23 :30 Magnesium Hydroxide (Milk Of Mag) 30 ml BID PRN PO CONSTIPATION; Start at 23:30 Lactulose (Enulose) 20 gm DAILY PRN PO CONSTIPATION; Start 05/13/16 at 23:30 Hydralazine HCl (Apresoline) 25 mg Q6H PRN PO ELEVATED BLOOD PRESSURE Last administered on 05/14/16 14:19; Admin Dose 25 MG; Start 05/14/16 at 14:00 Nicotine (Nicoderm 14 Mg/ 24hr) 1 patch DAILY TRANSDERM Last administered on 08:46; Admin Dose 1 PATCH; Start 05/14/16 at 18:00 Carvedilol (Coreg) 6.25 mg BID PO Last administered on 05/20/16 08:46; Admin Dose 6.25 MG; Start 05/14/16 at 21:00 Benazepril HCl (Lotensin) 10 mg BID PO Last administered on 05/20/16 08:47; Admin Dose 10 MG; Start 05/14/16 at 21:00 Assessment/Plan Additional Assessment/Plan Rehab- 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 Continue rehab treatment plan. Hypertension. Anemia. Dyslipidemia. psych- stable Dysphagia- speech RUFINA REAGAN MD May 20, 2016 13:14
[2016-05-20 20:00] VITALS: BP 129/84; RESP 18
--- NOTE | 2016-05-20 20:04 | CONS ---
DATE OF ADMISSION: 05/13/2016 DATE OF CONSULTATION: 05/20/2016 TYPE OF CONSULTATION: Psychological. REFERRING PHYSICIAN: Rufina Jeffrey MD CONSULTING PSYCHOLOGIST: Parveen Jeffrey, PhD REASON FOR CONSULTATION: This consultation was requested by Dr. Benny Jeffrey in order to evaluate the cognitive and emotional functioning of this patient related to his present medical condition. HISTORY OF PRESENT ILLNESS: The patient is a 60-year-old male. He had a CVA and now has left-sided paralysis. The patient is also left handed. Patient has numerous other medical problems and longs tanding psychiatric problems. The patient has been in and out of psychiatric hospitals since about 1974. He was in hospitals on the [facility] and then came out to the [facility] and had been at the [facility] as an inpatient for a good period of time. He now says that he is living at the [facility] in an [id number] situation where he had just moved in. The patient does have a psychiatrist at the [facility] named Dr. Ahn. The patient is paranoid and at times gets phyllis tated. The patient is relatively stable on meds, but does still have some difficulty handling his e motions. The patient was also in is some drug program at the [place]. The patient had been smoking crac k up until about 2 years ago. FAMILY AND SOCIAL HISTORY: The patient reports that he is now living in an assisted living in the [facility]. The patient said he just moved in. He had been living at the [facility]. The patient does want to return to his new living situation after discharge. MEDICATIONS: The patient is currently on Prolixin 5 mg b.i.d. SUBSTANCE USE: The patient reports that he smokes marijuana, but does smoke cigarettes. The patien t reports that he had smoked crack but stopped 2 years ago. The patient reports that he does not us e alcohol or other drugs. MENTAL STATUS EXAMINATION APPEARANCE: The patient was seen in his wheelchair. He is of average height and weight. The patie nt has a weinstein and mustache. The patient is left-handed. BEHAVIOR: A bit suspicious and the beginning of the consultation. The patient did attempt to answe r all questions presented to the interviewer, but what would, at times, did not know the answer or r efused to try to come up with the answer. MOOD AND AFFECT: Appears to be depressed and agitated. Affect does appear to be anxious. PERCEPTION: Does report that he has hallucinated in the past. The patient reports that he is "I schaffer ve seen the god." The patient does have paranoid delusions. The patient was alert to person, place , situation and time. MEMORY AND COGNITION: Somewhat impaired. He kind of refused to answer some of the questions and he may not have known the answers, or if he did know them, he was not going to give them out. The carlos a rosenberg, for example, was unable to say who the plant nursery worker is, and then when I aske d about the governor, the patient says "I do not care." The patient was able to spell "world" backwa rds. The patient was able to say the name of the hospital. The patient was able to do 1 serial 7 s ubtraction from 100, but then when asked to go further, he said "not going there." Overall, the carlos a rosenberg is a bit resistant and does have some cognitive difficulties. This may relate to his underlyin g level of paranoia. INTELLIGENCE: Appears to fall in the average range when he is functioning well. INSIGHT: Poor. JUDGMENT: Poor. THOUGHT CONTENT: Concerned about his present medical condition. The patient does want to recover a nd return to his previous level of functioning. The patient is frustrated because he has left side paralysis and is unable to function as he was prior to his stroke. The patient is motivated to try and do as well as he can, so he can recover and return to his previous level of functioning. DISCUSSION: The patient can likely benefit from some 1:1 cognitive/behavioral psychotherapy while lucía wilcox is on the unit. Psychotherapy would focus on his underlying level of agitation and paranoia and t ry and help him maintain a stable mood. DIAGNOSTIC IMPRESSION 1. (F20.0). Paranoid schizophrenia. 2. (F06.34). Mood disorder, due to cerebrovascular accident with mixed features. Thank you very much, Dr. Benny Jeffrey, for referring this individual. Please do not hesitate to ca ll if you have additional questions. Dictated By: PARVEEN JEFFREY PHD RC/NIYAH Conf#: [id number] DID#: [id number] CC: RUFINA JEFFREY MD;*End*
[2016-05-20] MEDS: ATORVASTATIN 80 MG TAB PO SCH (21:06)
[2016-05-21] MEDS: AMLODIPINE 10 MG TAB PO SCH (09:40)
[2016-05-21] MEDS: FAMOTIDINE 20 MG TAB PO SCH ×2 (09:40→20:44)
[2016-05-21] MEDS: BENAZEPRIL 10 MG TAB PO SCH ×2 (09:41→20:40)
[2016-05-21] MEDS: CLOPIDOGREL 75 MG TAB PO SCH (09:41)
[2016-05-21] MEDS: FLUPHENAZINE 5 MG TAB PO SCH ×2 (09:41→20:39)
[2016-05-21] MEDS: ASPIRIN (EC) 81 MG TAB PO SCH (09:41)
[2016-05-21] MEDS: DOCUSATE SODIUM 100 MG CAP PO SCH ×2 (09:41→20:39)
[2016-05-21] MEDS: BENZTROPINE 1 MG TAB PO SCH ×2 (09:41→20:40)
[2016-05-21] MEDS: NICOTINE (14 MG/24 HR) PATCH TRANSDERM SCH (09:42)
--- NOTE | 2016-05-21 12:30 | CONS ---
Date/Time of Note Date/Time of Note DATE: 05/21/16 TIME: 12:29 Consult Date/Type/Reason Admit Date/Time May 13, 2016 at 19:30 Subjective Calm, comfortable Objective pulm-cta abd-soft mod transfer Vital Signs Date Time Temp Pulse Resp B/P Pulse Ox O2 Delivery O2 Flow Rate FiO2 05/20/16 20:00 98.2 69 18 129/84 99 05/19/16 08:00 Room Air Intake and Output 05/20/16 05/20/16 05/21/16 15:00 23:00 07:00 Intake Total 1540 ml 240 ml Output Total 1701 ml 1150 ml Balance -161 ml -910 ml Results/Medications Medications Current Medications Acetaminophen (Tylenol Tab) 650 mg Q6H PRN PO PAIN AND OR ELEVATED TEMP Last administered on 05/20/16 10:38; Admin Dose 650 MG; Start 05/13/16 at 21:30 Aspirin (Halfprin) 81 mg DAILY PO Last administered on 05/21/16 09:41; Admin Dose 81 MG; Start 05/14/16 at 09:00 Atorvastatin Calcium (Lipitor) 80 mg HS PO Last administered on 05/20/16 21:06 ; Admin Dose 80 MG; Start 05/13/16 at 21:30 Benztropine Mesylate (Cogentin) 2 mg BID PO Last administered on 05/21/16 09:41 ; Admin Dose 2 MG; Start 05/13/16 at 22:00 Clopidogrel Bisulfate (plaVIX) 75 mg DAILY PO Last administered on 05/21/16 09: 41; Admin Dose 75 MG; Start 05/14/16 at 09:00 Docusate Sodium (Colace) 100 mg BID PO Last administered on 05/21/16 09:41; Admin Dose 100 MG; Start 05/13/16 at 21:30 Famotidine (Pepcid) 20 mg BID PO Last administered on 05/21/16 09:40; Admin Dose 20 MG; Start 05/13/16 at 21:30 Fluphenazine HCl (Prolixin) 5 mg BID PO Last administered on 05/21/16 09:41; Admin Dose 5 MG; Start 05/13/16 at 22:00 Amlodipine Besylate (Norvasc) 10 mg DAILY PO Last administered on 05/21/16 09: 40; Admin Dose 10 MG; Start 05/13/16 at 21:30 Bisacodyl (Dulcolax Supp) 10 mg DAILY PRN [place] CONSTIPATION; Start 05/13/16 at 23 :30 Magnesium Hydroxide (Milk Of Mag) 30 ml BID PRN PO CONSTIPATION; Start at 23:30 Lactulose (Enulose) 20 gm DAILY PRN PO CONSTIPATION; Start 05/13/16 at 23:30 Hydralazine HCl (Apresoline) 25 mg Q6H PRN PO ELEVATED BLOOD PRESSURE Last administered on 05/14/16 14:19; Admin Dose 25 MG; Start 05/14/16 at 14:00 Nicotine (Nicoderm 14 Mg/ 24hr) 1 patch DAILY TRANSDERM Last administered on 09:42; Admin Dose 1 PATCH; Start 05/14/16 at 18:00 Carvedilol (Coreg) 6.25 mg BID PO Last administered on 05/21/16 09:41; Admin Dose 6.25 MG; Start 05/14/16 at 21:00 Benazepril HCl (Lotensin) 10 mg BID PO Last administered on 05/21/16 09:41; Admin Dose 10 MG; Start 05/14/16 at 21:00 Assessment/Plan Additional Assessment/Plan Rehab- 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 Continue rehab therapy activities. [facility] with [facility]. Current functional and medical status reviewed.. Hypertension. Anemia. Dyslipidemia. psych- stable Dysphagia- speech RUFINA REAGAN MD May 21, 2016 12:30
[2016-05-21 16:29] VITALS: BP 129/86; RESP 14
--- NOTE | 2016-05-21 16:49 | PN ---
Date/Time of Note Date/Time of Note DATE: 05/21/16 TIME: 16:46 Assessment/Plan VTE Prophylaxis VTE Prophylaxis Intervention: LMWH Lines/Catheters [facility]from [facility] Saline Lock Urinary Cath still in place: No Assessment/Plan Chief Complaint/Hosp Course ASSESSMENT AND PLAN: 1. Acute on chronic cerebrovascular accident. The patient will be placed on dual antiplatelets, statin. Continue to monitor blood pressure and treat accordingly. 2. Essential hypertension, better controlled continue amlodipine and Coreg also , the patient has been placed on hydralazine p.r.n. 3. Nicotine dependency. Patient has been placed on nicotine patch. 4. Dyslipidemia, on Lipitor. 5. Paranoid schizophrenia. Continue home medications. We will continue to monitor patient closely. Further recommendations, management, and treatment as per clinical course. Problems: Subjective 24 Hr Interval Summary Free Text/Dictation Patient denies of any chest pain or shortness of breath Left upper extremity with minimal improvement Ambulate with max assist Exam/Review of Systems Vital Signs Vitals Vital Signs Date Time Temp Pulse Resp B/P Pulse Ox O2 Delivery O2 Flow Rate FiO2 05/21/16 16:29 97.5 67 14 129/86 97 05/19/16 08:00 Room Air Intake and Output 05/20/16 05/20/16 05/21/16 15:00 23:00 07:00 Intake Total 1540 ml 240 ml Output Total 1701 ml 1150 ml Balance -161 ml -910 ml Exam General: The patient is well-developed, Not in acute distress. HEENT: Atraumatic, normocephalic. The pupils are equal and round . Neck: Supple with full range of motion. Chest: Normal expansion of the thorax during inspiration Lungs: Clear to auscultation bilaterally Heart: Normal S1-S2, Regular rhythm and rate. Abdomen: Soft , nontender, nondistended , bowel sounds are present. Extremities: Left upper and lower extremity weakness3/5, no edema no cyanosis Neurologic: Normal mental status,The patient is awake, alert and oriented . Medications Medications Current Medications Acetaminophen (Tylenol Tab) 650 mg Q6H PRN PO PAIN AND OR ELEVATED TEMP Last administered on 05/20/16 10:38; Admin Dose 650 MG; Start 05/13/16 at 21:30 Aspirin (Halfprin) 81 mg DAILY PO Last administered on 05/21/16 09:41; Admin Dose 81 MG; Start 05/14/16 at 09:00 Atorvastatin Calcium (Lipitor) 80 mg HS PO Last administered on 05/20/16 21:06 ; Admin Dose 80 MG; Start 05/13/16 at 21:30 Benztropine Mesylate (Cogentin) 2 mg BID PO Last administered on 05/21/16 09:41 ; Admin Dose 2 MG; Start 05/13/16 at 22:00 Clopidogrel Bisulfate (plaVIX) 75 mg DAILY PO Last administered on 05/21/16 09: 41; Admin Dose 75 MG; Start 05/14/16 at 09:00 Docusate Sodium (Colace) 100 mg BID PO Last administered on 05/21/16 09:41; Admin Dose 100 MG; Start 05/13/16 at 21:30 Famotidine (Pepcid) 20 mg BID PO Last administered on 05/21/16 09:40; Admin Dose 20 MG; Start 05/13/16 at 21:30 Fluphenazine HCl (Prolixin) 5 mg BID PO Last administered on 05/21/16 09:41; Admin Dose 5 MG; Start 05/13/16 at 22:00 Amlodipine Besylate (Norvasc) 10 mg DAILY PO Last administered on 05/21/16 09: 40; Admin Dose 10 MG; Start 05/13/16 at 21:30 Bisacodyl (Dulcolax Supp) 10 mg DAILY PRN [place] CONSTIPATION; Start 05/13/16 at 23 :30 Magnesium Hydroxide (Milk Of Mag) 30 ml BID PRN PO CONSTIPATION; Start at 23:30 Lactulose (Enulose) 20 gm DAILY PRN PO CONSTIPATION; Start 05/13/16 at 23:30 Hydralazine HCl (Apresoline) 25 mg Q6H PRN PO ELEVATED BLOOD PRESSURE Last administered on 05/14/16 14:19; Admin Dose 25 MG; Start 05/14/16 at 14:00 Nicotine (Nicoderm 14 Mg/ 24hr) 1 patch DAILY TRANSDERM Last administered on 09:42; Admin Dose 1 PATCH; Start 05/14/16 at 18:00 Carvedilol (Coreg) 6.25 mg BID PO Last administered on 3/2/17at 09:41; Admin Dose 6.25 MG; Start 05/14/16 at 21:00 Benazepril HCl (Lotensin) 10 mg BID PO Last administered on 05/21/16t 09:41; Admin Dose 10 MG; Start 05/14/16 at 21:00 ANKIT BERGER MD May 21, 2016 16:49
[2016-05-21 20:32] VITALS: BP 105/72; RESP 18
[2016-05-21] MEDS: ATORVASTATIN 80 MG TAB PO SCH (20:40)
[2016-05-22] MEDS: BENZTROPINE 1 MG TAB PO SCH ×2 (09:21→20:55)
[2016-05-22] MEDS: ASPIRIN (EC) 81 MG TAB PO SCH (09:21)
[2016-05-22] MEDS: DOCUSATE SODIUM 100 MG CAP PO SCH ×2 (09:21→20:54)
[2016-05-22] MEDS: FAMOTIDINE 20 MG TAB PO SCH ×2 (09:22→20:55)
[2016-05-22] MEDS: FLUPHENAZINE 5 MG TAB PO SCH ×2 (09:22→20:55)
[2016-05-22] MEDS: CLOPIDOGREL 75 MG TAB PO SCH (09:22)
[2016-05-22] MEDS: AMLODIPINE 10 MG TAB PO SCH (09:22)
[2016-05-22] MEDS: NICOTINE (14 MG/24 HR) PATCH TRANSDERM SCH (09:22)
[2016-05-22] MEDS: BENAZEPRIL 10 MG TAB PO SCH ×2 (09:22→20:55)
[2016-05-22 09:57] VITALS: BP 123/77; RESP 20
--- NOTE | 2016-05-22 11:25 | CONS ---
Date/Time of Note Date/Time of Note DATE: 05/22/16 TIME: 11:24 Consult Date/Type/Reason Admit Date/Time May 13, 2016 at 19:30 Subjective resting comfortably Objective pulm-cta abd-soft mod assist ambulation Vital Signs Date Time Temp Pulse Resp B/P Pulse Ox O2 Delivery O2 Flow Rate FiO2 05/22/16 09:57 98.4 63 20 123/77 96 05/19/16 08:00 Room Air Intake and Output 05/21/16 05/21/16 05/22/16 15:00 23:00 07:00 Intake Total 320 ml Output Total 300 ml 550 ml Balance -300 ml -230 ml Results/Medications Medications Current Medications Acetaminophen (Tylenol Tab) 650 mg Q6H PRN PO PAIN AND OR ELEVATED TEMP Last administered on 05/20/16 10:38; Admin Dose 650 MG; Start 05/13/16 at 21:30 Aspirin (Halfprin) 81 mg DAILY PO Last administered on 05/22/16 09:21; Admin Dose 81 MG; Start 05/14/16 at 09:00 Atorvastatin Calcium (Lipitor) 80 mg HS PO Last administered on 05/21/16 20:40 ; Admin Dose 80 MG; Start 05/13/16 at 21:30 Benztropine Mesylate (Cogentin) 2 mg BID PO Last administered on 05/22/16 09:21 ; Admin Dose 2 MG; Start 05/13/16 at 22:00 Clopidogrel Bisulfate (plaVIX) 75 mg DAILY PO Last administered on 05/22/16 09: 22; Admin Dose 75 MG; Start 05/14/16 at 09:00 Docusate Sodium (Colace) 100 mg BID PO Last administered on 05/22/16 09:21; Admin Dose 100 MG; Start 05/13/16 at 21:30 Famotidine (Pepcid) 20 mg BID PO Last administered on 05/22/16 09:22; Admin Dose 20 MG; Start 05/13/16 at 21:30 Fluphenazine HCl (Prolixin) 5 mg BID PO Last administered on 05/22/16 09:22; Admin Dose 5 MG; Start 05/13/16 at 22:00 Amlodipine Besylate (Norvasc) 10 mg DAILY PO Last administered on 3/3/17at 09: 22; Admin Dose 10 MG; Start 05/13/16 at 21:30 Bisacodyl (Dulcolax Supp) 10 mg DAILY PRN [place] CONSTIPATION; Start 05/13/16 at 23 :30 Magnesium Hydroxide (Milk Of Mag) 30 ml BID PRN PO CONSTIPATION; Start at 23:30 Lactulose (Enulose) 20 gm DAILY PRN PO CONSTIPATION; Start 05/13/16 at 23:30 Hydralazine HCl (Apresoline) 25 mg Q6H PRN PO ELEVATED BLOOD PRESSURE Last administered on 05/14/16 14:19; Admin Dose 25 MG; Start 05/14/16 at 14:00 Nicotine (Nicoderm 14 Mg/ 24hr) 1 patch DAILY TRANSDERM Last administered on 09:22; Admin Dose 1 PATCH; Start 05/14/16 at 18:00 Carvedilol (Coreg) 6.25 mg BID PO Last administered on 05/22/16 09:21; Admin Dose 6.25 MG; Start 05/14/16 at 21:00 Benazepril HCl (Lotensin) 10 mg BID PO Last administered on 05/22/16 09:22; Admin Dose 10 MG; Start 05/14/16 at 21:00 Assessment/Plan Additional Assessment/Plan Rehab- 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 Continue rehab program. DC planning in progress Hypertension. Anemia. Dyslipidemia. psych- stable Dysphagia- speech RUFINA REAGAN MD May 22, 2016 11:25
--- NOTE | 2016-05-22 12:10 | PN ---
Date/Time of Note Date/Time of Note DATE: 05/22/16 TIME: 12:09 Assessment/Plan VTE Prophylaxis VTE Prophylaxis Intervention: SCD's Lines/Catheters IV [facility] Saline Lock Urinary Cath still in place: No Assessment/Plan Assessment/Plan 1. Acute on chronic cerebrovascular accident - BP control , on ASA and plavix for dual antiplatelet therapy for Stroke prevention 2. Essential hypertension, better controlled continue amlodipine and Coreg also , the patient has been placed on hydralazine p.r.n. 3. Nicotine dependency. Patient has been placed on nicotine patch. 4. Dyslipidemia, on Lipitor. 5. Paranoid schizophrenia. Continue home medication prolixin, IV not available in pharmacy, will continue PO 5mg BID here doing ok, will continue to monitor rehab progress, no plan for d/c decided yet Subjective 24 Hr Interval Summary Free Text/Dictation doing ok, BP stable, no complaints Exam/Review of Systems Vital Signs Vitals Vital Signs Date Time Temp Pulse Resp B/P Pulse Ox O2 Delivery O2 Flow Rate FiO2 05/22/16 09:57 98.4 63 20 123/77 96 05/19/16 08:00 Room Air Intake and Output 05/21/16 05/21/16 05/22/16 15:00 23:00 07:00 Intake Total 320 ml Output Total 300 ml 550 ml Balance -300 ml -230 ml Exam Constitutional: alert Psych: no complaints Eyes: nl conjunctiva ENMT: nl external ears & nose Neck: supple Respiratory: clear to auscultation Cardiovascular: regular rate and rhythm Gastrointestinal: soft Extremities: other (LUE weakness ) Medications Medications Current Medications Acetaminophen (Tylenol Tab) 650 mg Q6H PRN PO PAIN AND OR ELEVATED TEMP Last administered on 05/20/16 10:38; Admin Dose 650 MG; Start 05/13/16 at 21:30 Aspirin (Halfprin) 81 mg DAILY PO Last administered on 05/22/16 09:21; Admin Dose 81 MG; Start 05/14/16 at 09:00 Atorvastatin Calcium (Lipitor) 80 mg HS PO Last administered on 05/21/16 20:40 ; Admin Dose 80 MG; Start 05/13/16 at 21:30 Benztropine Mesylate (Cogentin) 2 mg BID PO Last administered on 05/22/16 09:21 ; Admin Dose 2 MG; Start 05/13/16 at 22:00 Clopidogrel Bisulfate (plaVIX) 75 mg DAILY PO Last administered on 05/22/16 09: 22; Admin Dose 75 MG; Start 05/14/16 at 09:00 Docusate Sodium (Colace) 100 mg BID PO Last administered on 05/22/16 09:21; Admin Dose 100 MG; Start 05/13/16 at 21:30 Famotidine (Pepcid) 20 mg BID PO Last administered on 05/22/16 09:22; Admin Dose 20 MG; Start 05/13/16 at 21:30 Fluphenazine HCl (Prolixin) 5 mg BID PO Last administered on 05/22/16 09:22; Admin Dose 5 MG; Start 05/13/16 at 22:00 Amlodipine Besylate (Norvasc) 10 mg DAILY PO Last administered on 05/22/16 09: 22; Admin Dose 10 MG; Start 05/13/16 at 21:30 Bisacodyl (Dulcolax Supp) 10 mg DAILY PRN [place] CONSTIPATION; Start 05/13/16 at 23 :30 Magnesium Hydroxide (Milk Of Mag) 30 ml BID PRN PO CONSTIPATION; Start at 23:30 Lactulose (Enulose) 20 gm DAILY PRN PO CONSTIPATION; Start 05/13/16 at 23:30 Hydralazine HCl (Apresoline) 25 mg Q6H PRN PO ELEVATED BLOOD PRESSURE Last administered on 05/14/16 14:19; Admin Dose 25 MG; Start 05/14/16 at 14:00 Nicotine (Nicoderm 14 Mg/ 24hr) 1 patch DAILY TRANSDERM Last administered on 09:22; Admin Dose 1 PATCH; Start 05/14/16 at 18:00 Carvedilol (Coreg) 6.25 mg BID PO Last administered on 05/22/16 09:21; Admin Dose 6.25 MG; Start 05/14/16 at 21:00 Benazepril HCl (Lotensin) 10 mg BID PO Last administered on 05/22/16 09:22; Admin Dose 10 MG; Start 05/14/16 at 21:00 SUZY PATEL MD May 22, 2016 12:10
--- NOTE | 2016-05-22 19:35 | RADRPT ---
PROCEDURE: X-ray lumbar spine CLINICAL INDICATION: Fall with pain in the lumbar spine TECHNIQUE: 3 views of the lumbar spine COMPARISON: None. FINDINGS: Rudimentary ribs at T1. Lumbarization of the S1 vertebral body. Mild disk space narrowing at the L 5-S1 level. Mild disk disease at the L3-4 level with anterior endplate osteophytes and mild disk sp sheridan narrowing. Marginal osteophytes on the left at the L3-4 level. No acute fracture dislocation. Po sterior facet degenerative changes seen, greater at the L3-S1 levels. IMPRESSION: 1. Mild degenerative changes. 2. No acute fracture. 3. 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 RPTAT: [facility] Physician Concepción Date Time Electronically viewed and signed by Physician Concepción on 05/22/2016 19:35 RS/
[2016-05-22 20:00] VITALS: BP 133/80; RESP 19
[2016-05-22] MEDS: ATORVASTATIN 80 MG TAB PO SCH (20:55)
[2016-05-23 07:30] VITALS: BP 120/73; RESP 18
[2016-05-23] MEDS: AMLODIPINE 10 MG TAB PO SCH (09:00)
[2016-05-23] MEDS: BENAZEPRIL 10 MG TAB PO SCH ×2 (09:00→20:33)
[2016-05-23] MEDS: DOCUSATE SODIUM 100 MG CAP PO SCH ×2 (09:25→20:32)
[2016-05-23] MEDS: ASPIRIN (EC) 81 MG TAB PO SCH (09:25)
[2016-05-23] MEDS: FAMOTIDINE 20 MG TAB PO SCH ×2 (09:25→20:33)
[2016-05-23] MEDS: CLOPIDOGREL 75 MG TAB PO SCH (09:25)
[2016-05-23] MEDS: FLUPHENAZINE 5 MG TAB PO SCH ×2 (09:25→20:33)
[2016-05-23] MEDS: BENZTROPINE 1 MG TAB PO SCH ×2 (09:26→20:32)
[2016-05-23] MEDS: NICOTINE (14 MG/24 HR) PATCH TRANSDERM SCH (09:27)
[2016-05-23 09:30] VITALS: BP 104/63; PULSE 62; RESP 18
--- NOTE | 2016-05-23 09:47 | CONS ---
Date/Time of Note Date/Time of Note DATE: 05/23/16 TIME: 09:47 Consult Date/Type/Reason Admit Date/Time May 13, 2016 at 19:30 Subjective Calm, comfortable Objective pulm-cta abd-soft min assist transfer Vital Signs Date Time Temp Pulse Resp B/P Pulse Ox O2 Delivery O2 Flow Rate FiO2 05/23/16 09:30 62 18 104/63 98 Room Air 05/23/16 07:30 98.5 Intake and Output 05/22/16 05/22/16 05/23/16 15:00 23:00 07:00 Intake Total 800 ml 360 ml Output Total 501 ml 220 ml Balance 299 ml 140 ml Results/Medications Medications Current Medications Acetaminophen (Tylenol Tab) 650 mg Q6H PRN PO PAIN AND OR ELEVATED TEMP Last administered on 05/20/16 10:38; Admin Dose 650 MG; Start 05/13/16 at 21:30 Aspirin (Halfprin) 81 mg DAILY PO Last administered on 05/23/16 09:25; Admin Dose 81 MG; Start 05/14/16 at 09:00 Atorvastatin Calcium (Lipitor) 80 mg HS PO Last administered on 05/22/16 20:55 ; Admin Dose 80 MG; Start 05/13/16 at 21:30 Benztropine Mesylate (Cogentin) 2 mg BID PO Last administered on 05/23/16 09:26 ; Admin Dose 2 MG; Start 05/13/16 at 22:00 Clopidogrel Bisulfate (plaVIX) 75 mg DAILY PO Last administered on 05/23/16 09: 25; Admin Dose 75 MG; Start 05/14/16 at 09:00 Docusate Sodium (Colace) 100 mg BID PO Last administered on 05/23/16 09:25; Admin Dose 100 MG; Start 05/13/16 at 21:30 Famotidine (Pepcid) 20 mg BID PO Last administered on 05/23/16 09:25; Admin Dose 20 MG; Start 05/13/16 at 21:30 Fluphenazine HCl (Prolixin) 5 mg BID PO Last administered on 05/23/16 09:25; Admin Dose 5 MG; Start 05/13/16 at 22:00 Amlodipine Besylate (Norvasc) 10 mg DAILY PO Last administered on 05/22/16 09: 22; Admin Dose 10 MG; Start 05/13/16 at 21:30 Bisacodyl (Dulcolax Supp) 10 mg DAILY PRN [place] CONSTIPATION; Start 05/13/16 at 23 :30 Magnesium Hydroxide (Milk Of Mag) 30 ml BID PRN PO CONSTIPATION; Start at 23:30 Lactulose (Enulose) 20 gm DAILY PRN PO CONSTIPATION; Start 05/13/16 at 23:30 Hydralazine HCl (Apresoline) 25 mg Q6H PRN PO ELEVATED BLOOD PRESSURE Last administered on 05/14/16 14:19; Admin Dose 25 MG; Start 05/14/16 at 14:00 Nicotine (Nicoderm 14 Mg/ 24hr) 1 patch DAILY TRANSDERM Last administered on 09:27; Admin Dose 1 PATCH; Start 05/14/16 at 18:00 Carvedilol (Coreg) 6.25 mg BID PO Last administered on 05/22/16 20:56; Admin Dose 6.25 MG; Start 05/14/16 at 21:00 Benazepril HCl (Lotensin) 10 mg BID PO Last administered on 05/22/16 20:55; Admin Dose 10 MG; Start 05/14/16 at 21:00 Assessment/Plan Additional Assessment/Plan Rehab- 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 Continue rehab therapies. DC planning in progress Hypertension. Anemia. Dyslipidemia. psych- stable Dysphagia- improved RUFINA REAGAN MD May 23, 2016 09:47
[2016-05-23 13:15] VITALS: BP 130/69; PULSE 80; RESP 18
[2016-05-23 19:59] VITALS: BP 122/75; RESP 18
[2016-05-23] MEDS: ATORVASTATIN 80 MG TAB PO SCH (20:33)
[2016-05-24 07:45] VITALS: BP 117/76; PULSE 68; RESP 18
[2016-05-24] MEDS: BENZTROPINE 1 MG TAB PO SCH ×2 (08:57→20:17)
[2016-05-24] MEDS: CLOPIDOGREL 75 MG TAB PO SCH (08:57)
[2016-05-24] MEDS: FLUPHENAZINE 5 MG TAB PO SCH ×2 (08:57→20:17)
[2016-05-24] MEDS: DOCUSATE SODIUM 100 MG CAP PO SCH ×2 (08:57→20:20)
[2016-05-24] MEDS: FAMOTIDINE 20 MG TAB PO SCH ×2 (08:58→20:20)
[2016-05-24] MEDS: BENAZEPRIL 10 MG TAB PO SCH ×2 (08:58→20:19)
[2016-05-24] MEDS: AMLODIPINE 10 MG TAB PO SCH (08:58)
[2016-05-24] MEDS: ASPIRIN (EC) 81 MG TAB PO SCH (08:58)
[2016-05-24] MEDS: NICOTINE (14 MG/24 HR) PATCH TRANSDERM SCH (08:59)
[2016-05-24 09:06] VITALS: BP 123/76; PULSE 66; RESP 18
[2016-05-24] MEDS: ACETAMINOPHEN 325 MG TAB PO PRN ×2 (11:14→20:17)
[2016-05-24 19:50] VITALS: BP 139/89; RESP 17
[2016-05-24] MEDS: ATORVASTATIN 80 MG TAB PO SCH (20:19)
[2016-05-25 07:30] VITALS: BP 137/93; RESP 20
[2016-05-25] MEDS: NICOTINE (14 MG/24 HR) PATCH TRANSDERM SCH (08:41)
[2016-05-25] MEDS: BENZTROPINE 1 MG TAB PO SCH ×2 (08:41→21:03)
[2016-05-25] MEDS: DOCUSATE SODIUM 100 MG CAP PO SCH ×2 (08:42→21:06)
[2016-05-25] MEDS: BENAZEPRIL 10 MG TAB PO SCH ×2 (08:42→21:05)
[2016-05-25] MEDS: ASPIRIN (EC) 81 MG TAB PO SCH (08:42)
[2016-05-25] MEDS: AMLODIPINE 10 MG TAB PO SCH (08:43)
[2016-05-25] MEDS: FLUPHENAZINE 5 MG TAB PO SCH ×2 (08:43→21:03)
[2016-05-25] MEDS: FAMOTIDINE 20 MG TAB PO SCH ×2 (08:43→21:06)
[2016-05-25] MEDS: CLOPIDOGREL 75 MG TAB PO SCH (08:43)
--- NOTE | 2016-05-25 11:51 | CONS ---
Date/Time of Note Date/Time of Note DATE: 05/25/16 TIME: 11:50 Consult Date/Type/Reason Admit Date/Time May 13, 2016 at 19:30 Subjective Comfortable Objective Vital Signs Date Time Temp Pulse Resp B/P Pulse Ox O2 Delivery O2 Flow Rate FiO2 05/25/16 07:30 98.8 60 20 137/93 100 05/24/16 09:06 Room Air Intake and Output 05/24/16 05/24/16 05/25/16 15:00 23:00 07:00 Intake Total 950 ml 200 ml 360 ml Output Total 780 ml 400 ml 500 ml Balance 170 ml -200 ml -140 ml INTERDISCIPLINARY TEAM CONFERENCE BOWEL- Cont BLADDER-Cont SKIN- intact OT- DRESSING-min BATHING-min TOILETING-min PT- BED MOBILITY-min TRANSFERS-min AMBULATION-min SPEECH- COGNITION-sba A/P- Interdisciplinary team conference held today. Please see interdisciplinary sheet. Working toward d.cLeandro on 05/29 with post discharge follow up of physical therapy, occupational therapy. Results/Medications Medications Current Medications Acetaminophen (Tylenol Tab) 650 mg Q6H PRN PO PAIN AND OR ELEVATED TEMP Last administered on 05/24/16 20:17; Admin Dose 650 MG; Start 05/13/16 at 21:30 Aspirin (Halfprin) 81 mg DAILY PO Last administered on 05/25/16 08:42; Admin Dose 81 MG; Start 05/14/16 at 09:00 Atorvastatin Calcium (Lipitor) 80 mg HS PO Last administered on 05/24/16 20:19 ; Admin Dose 80 MG; Start 05/13/16 at 21:30 Benztropine Mesylate (Cogentin) 2 mg BID PO Last administered on 05/25/16 08:41 ; Admin Dose 2 MG; Start 05/13/16 at 22:00 Clopidogrel Bisulfate (plaVIX) 75 mg DAILY PO Last administered on 05/25/16 08: 43; Admin Dose 75 MG; Start 05/14/16 at 09:00 Docusate Sodium (Colace) 100 mg BID PO Last administered on 05/25/16 08:42; Admin Dose 100 MG; Start 05/13/16 at 21:30 Famotidine (Pepcid) 20 mg BID PO Last administered on 05/25/16 08:43; Admin Dose 20 MG; Start 05/13/16 at 21:30 Fluphenazine HCl (Prolixin) 5 mg BID PO Last administered on 05/25/16 08:43; Admin Dose 5 MG; Start 05/13/16 at 22:00 Amlodipine Besylate (Norvasc) 10 mg DAILY PO Last administered on 05/25/16 08: 43; Admin Dose 10 MG; Start 05/13/16 at 21:30 Bisacodyl (Dulcolax Supp) 10 mg DAILY PRN [place] CONSTIPATION; Start 05/13/16 at 23 :30 Magnesium Hydroxide (Milk Of Mag) 30 ml BID PRN PO CONSTIPATION; Start at 23:30 Lactulose (Enulose) 20 gm DAILY PRN PO CONSTIPATION; Start 05/13/16 at 23:30 Hydralazine HCl (Apresoline) 25 mg Q6H PRN PO ELEVATED BLOOD PRESSURE Last administered on 05/14/16 14:19; Admin Dose 25 MG; Start 05/14/16 at 14:00 Nicotine (Nicoderm 14 Mg/ 24hr) 1 patch DAILY TRANSDERM Last administered on 08:41; Admin Dose 1 PATCH; Start 05/14/16 at 18:00 Carvedilol (Coreg) 6.25 mg BID PO Last administered on 05/25/16 08:43; Admin Dose 6.25 MG; Start 05/14/16 at 21:00 Benazepril HCl (Lotensin) 10 mg BID PO Last administered on 05/25/16 08:42; Admin Dose 10 MG; Start 05/14/16 at 21:00 RUFINA REAGAN MD May 25, 2016 11:51
--- NOTE | 2016-05-25 17:45 | PN ---
DATE: 05/25/2016 SUBJECTIVE: Patient Vimal is stable this morning. PHYSICAL EXAMINATION: VITAL SIGNS: Temperature 98, pulse 60, blood pressure 137/93, O2 saturation 96% on room air. NECK: Supple. No JVD or lymphadenopathy. CARDIAC: S1, S2, no added sounds or murmurs. CHEST: Diminished air entry bilaterally. ABDOMEN: Soft, nontender. No guarding or rebound. EXTREMITIES: No cyanosis, clubbing, edema. NEUROLOGIC: Generalized weakness. LABORATORY DATA: Pending at time of this dictation. IMPRESSION AND PLAN: 1. Acute on chronic cerebrovascular accident. 2. Essential hypertension. 3. Nicotine dependency. 4. Hyperlipidemia. 5. Paranoid schizophrenia. PLAN: 1. Continue blood pressure management, aspirin, Plavix, and statin. 2. Continue antihypertensives with amlodipine and Coreg. 3. Continue nicotine patch. 4. Statins. 5. Psych meds. Dictated By: CHRISTINE SMITH/NIYAH Conf#: [id number] DID#: [id number]
[2016-05-25 20:08] VITALS: BP 137/81; RESP 19
[2016-05-25] MEDS: ACETAMINOPHEN 325 MG TAB PO PRN (21:03)
[2016-05-25] MEDS: ATORVASTATIN 80 MG TAB PO SCH (21:07)
[2016-05-26 08:30] VITALS: BP 122/71; RESP 18
[2016-05-26] MEDS: NICOTINE (14 MG/24 HR) PATCH TRANSDERM SCH (09:00)
[2016-05-26] MEDS: CLOPIDOGREL 75 MG TAB PO SCH (09:00)
[2016-05-26] MEDS: FAMOTIDINE 20 MG TAB PO SCH ×2 (09:00→20:18)
[2016-05-26] MEDS: BENAZEPRIL 10 MG TAB PO SCH ×2 (09:00→20:18)
[2016-05-26] MEDS: AMLODIPINE 10 MG TAB PO SCH (09:00)
[2016-05-26] MEDS: FLUPHENAZINE 5 MG TAB PO SCH ×2 (09:01→20:18)
[2016-05-26] MEDS: BENZTROPINE 1 MG TAB PO SCH ×2 (09:01→20:18)
[2016-05-26] MEDS: DOCUSATE SODIUM 100 MG CAP PO SCH ×2 (09:01→20:19)
[2016-05-26] MEDS: ASPIRIN (EC) 81 MG TAB PO SCH (09:01)
--- NOTE | 2016-05-26 12:29 | CONS ---
Date/Time of Note Date/Time of Note DATE: 05/26/16 TIME: 12:28 Consult Date/Type/Reason Admit Date/Time May 13, 2016 at 19:30 Subjective Comfortable Objective pulm-cta abd-soft min assist ambulation Vital Signs Date Time Temp Pulse Resp B/P Pulse Ox O2 Delivery O2 Flow Rate FiO2 05/26/16 08:30 98.5 72 18 122/71 97 05/24/16 09:06 Room Air Intake and Output 05/25/16 05/25/16 05/26/16 15:00 23:00 07:00 Intake Total 1600 ml 240 ml Output Total 1200 ml 400 ml Balance 400 ml -160 ml Results/Medications Medications Current Medications Acetaminophen (Tylenol Tab) 650 mg Q6H PRN PO PAIN AND OR ELEVATED TEMP Last administered on 05/25/16 21:03; Admin Dose 650 MG; Start 05/13/16 at 21:30 Aspirin (Halfprin) 81 mg DAILY PO Last administered on 05/26/16 09:01; Admin Dose 81 MG; Start 05/14/16 at 09:00 Atorvastatin Calcium (Lipitor) 80 mg HS PO Last administered on 05/25/16 21:07 ; Admin Dose 80 MG; Start 05/13/16 at 21:30 Benztropine Mesylate (Cogentin) 2 mg BID PO Last administered on 05/26/16 09:01 ; Admin Dose 2 MG; Start 05/13/16 at 22:00 Clopidogrel Bisulfate (plaVIX) 75 mg DAILY PO Last administered on 05/26/16 09: 00; Admin Dose 75 MG; Start 05/14/16 at 09:00 Docusate Sodium (Colace) 100 mg BID PO Last administered on 05/26/16 09:01; Admin Dose 100 MG; Start 05/13/16 at 21:30 Famotidine (Pepcid) 20 mg BID PO Last administered on 05/26/16 09:00; Admin Dose 20 MG; Start 05/13/16 at 21:30 Fluphenazine HCl (Prolixin) 5 mg BID PO Last administered on 05/26/16 09:01; Admin Dose 5 MG; Start 05/13/16 at 22:00 Amlodipine Besylate (Norvasc) 10 mg DAILY PO Last administered on 05/25/16 08: 43; Admin Dose 10 MG; Start 05/13/16 at 21:30 Bisacodyl (Dulcolax Supp) 10 mg DAILY PRN [place] CONSTIPATION; Start 05/13/16 at 23 :30 Magnesium Hydroxide (Milk Of Mag) 30 ml BID PRN PO CONSTIPATION; Start at 23:30 Lactulose (Enulose) 20 gm DAILY PRN PO CONSTIPATION; Start 05/13/16 at 23:30 Hydralazine HCl (Apresoline) 25 mg Q6H PRN PO ELEVATED BLOOD PRESSURE Last administered on 05/14/16 14:19; Admin Dose 25 MG; Start 05/14/16 at 14:00 Nicotine (Nicoderm 14 Mg/ 24hr) 1 patch DAILY TRANSDERM Last administered on 09:00; Admin Dose 1 PATCH; Start 05/14/16 at 18:00 Carvedilol (Coreg) 6.25 mg BID PO Last administered on 05/26/16 09:02; Admin Dose 6.25 MG; Start 05/14/16 at 21:00 Benazepril HCl (Lotensin) 10 mg BID PO Last administered on 05/25/16 21:05; Admin Dose 10 MG; Start 05/14/16 at 21:00 Assessment/Plan Additional Assessment/Plan Rehab- 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 Patient making excellent progress Hypertension. Anemia. Dyslipidemia. psych- stable Dysphagia- improved RUFINA REAGAN MD May 26, 2016 12:28
--- NOTE | 2016-05-26 17:33 | PN ---
DATE: 05/26/2016 SUBJECTIVE: The patient Vimal remained stable overnight. Continues physical therapy. OBJECTIVE: VITAL SIGNS: Temperature 98, pulse is 72, blood pressure 122/71, O2 saturation 96% on room air. NECK: Supple. No JVD or lymphadenopathy. CARDIAC: S1, S2. No added sounds or murmurs. CHEST: Diminished air entry bilaterally. ABDOMEN: Soft, nontender. No guarding or rebound. EXTREMITIES: No cyanosis, clubbing. 1+ edema. NEUROLOGIC: Generalized weakness. LABORATORY DATA: Pending at time of this dictation. IMPRESSION: 1. Recent cerebrovascular accident. 2. Essential hypertension. 3. Nicotine dependence. 4. Hyperlipidemia. 5. Paranoid schizophrenia. PLAN: 1. Continue current antihypertensives. 2. Nicotine patch. 3. Physical therapy. 4. DVT and GI prophylaxis. Dictated By: CHRISTINE SMITH/NIYAH Conf#: [id number] DID#: [id number]
[2016-05-26 19:40] VITALS: BP 145/91; RESP 20
[2016-05-26] MEDS: ATORVASTATIN 80 MG TAB PO SCH (20:19)
[2016-05-27 07:26] LABS: ADD SCAN DIFF NO
[2016-05-27 07:41] LABS: CREATININE 0.96 mg/dl (0.61-1.24)
[2016-05-27 07:42] LABS: CALCIUM 9.1 mg/dl (8.4-10.2); MAGNESIUM 1.8 mg/dl (1.7-2.5); PHOSPHORUS 3.9 mg/dl (2.5-4.9)
[2016-05-27 07:56] LABS: BASOPHILS % 0.2 % (0.0-2.0); EOSINOPHILS # 0.1 10^3/ul (0.0-0.5); EOSINOPHILS % 1.5 % (0.0-7.0); HEMATOCRIT 39.7 % (42.0-52.0); HEMOGLOBIN 13.3 g/dl (14.0-18.0); LYMPHOCYTES # 1.6 10^3/ul (0.8-2.9); LYMPHOCYTES % 18.3 % (15.0-51.0); MEAN CORPUSCULAR HEMOGLOBIN 30.7 pg (29.0-33.0); MEAN CORPUSCULAR HGB CONC 33.5 g/dl (32.0-37.0); MEAN CORPUSCULAR VOLUME 91.7 fl (82.0-101.0); MEAN PLATELET VOLUME 9.6 fl (7.4-10.4); MONOCYTE # 0.9 10^3/ul (0.3-0.9); MONOCYTES % 10.3 % (0.0-11.0); NEUTROPHIL # 6.2 10^3/ul (1.6-7.5); NEUTROPHILS % 69.5 % (39.0-77.0); PLATELET COUNT 255 10^3/UL (140-415); RED BLOOD COUNT 4.33 10^6/ul (4.70-6.10); RED CELL DISTRIBUTION WIDTH 13.3 % (11.5-14.5)
[2016-05-27 07:58] VITALS: BP 115/70; RESP 18
[2016-05-27] MEDS: DOCUSATE SODIUM 100 MG CAP PO SCH ×2 (09:12→20:43)
[2016-05-27] MEDS: BENZTROPINE 1 MG TAB PO SCH ×2 (09:12→20:43)
[2016-05-27] MEDS: ASPIRIN (EC) 81 MG TAB PO SCH (09:13)
[2016-05-27] MEDS: BENAZEPRIL 10 MG TAB PO SCH ×2 (09:14→20:43)
[2016-05-27] MEDS: FAMOTIDINE 20 MG TAB PO SCH ×2 (09:15→20:43)
[2016-05-27] MEDS: AMLODIPINE 10 MG TAB PO SCH (09:15)
[2016-05-27] MEDS: CLOPIDOGREL 75 MG TAB PO SCH (09:15)
[2016-05-27] MEDS: NICOTINE (14 MG/24 HR) PATCH TRANSDERM SCH (09:15)
[2016-05-27] MEDS: FLUPHENAZINE 5 MG TAB PO SCH ×2 (09:15→20:44)
--- NOTE | 2016-05-27 12:30 | CONS ---
Date/Time of Note Date/Time of Note DATE: 05/27/16 TIME: 12:29 Consult Date/Type/Reason Admit Date/Time May 13, 2016 at 19:30 Subjective No new complaints Objective pulm-cta min assist transfer Vital Signs Date Time Temp Pulse Resp B/P Pulse Ox O2 Delivery O2 Flow Rate FiO2 05/27/16 07:58 97.9 61 18 115/70 96 05/24/16 09:06 Room Air Intake and Output 05/26/16 05/26/16 05/27/16 15:00 23:00 07:00 Intake Total 720 ml 360 ml 300 ml Output Total 350 ml 500 ml 650 ml Balance 370 ml -140 ml -350 ml Results/Medications Result Diagram: 05/27/1615 05/27/16 0615 Results 24 hrs Laboratory Tests Test 05/27/16 06:15 Anion Gap 15 Basophils # 0.0 Basophils % 0.2 Blood Urea Nitrogen 22 H Calcium Level 9.1 Carbon Dioxide Level 24 Chloride Level 107 Creatinine 0.96 Eosinophils # 0.1 Eosinophils % 1.5 Glucose Level 98 Hematocrit 39.7 L Hemoglobin 13.3 L Lymphocytes # 1.6 Lymphocytes % 18.3 Magnesium Level 1.8 Mean Corpuscular Hemoglobin 30.7 Mean Corpuscular Hemoglobin Concent 33.5 Mean Corpuscular Volume 91.7 Mean Platelet Volume 9.6 Monocytes # 0.9 Monocytes % 10.3 Neutrophils # 6.2 Neutrophils % 69.5 Nucleated Red Blood Cells # 0.0 Nucleated Red Blood Cells % 0.0 Phosphorus Level 3.9 Platelet Count 255 Potassium Level 4.0 Red Blood Count 4.33 L Red Cell Distribution Width 13.3 Sodium Level 142 White Blood Count 9.0 Medications Current Medications Acetaminophen (Tylenol Tab) 650 mg Q6H PRN PO PAIN AND OR ELEVATED TEMP Last administered on 05/25/16 21:03; Admin Dose 650 MG; Start 05/13/16 at 21:30 Aspirin (Halfprin) 81 mg DAILY PO Last administered on 05/27/16 09:13; Admin Dose 81 MG; Start 05/14/16 at 09:00 Atorvastatin Calcium (Lipitor) 80 mg HS PO Last administered on 05/26/16 20:19 ; Admin Dose 80 MG; Start 05/13/16 at 21:30 Benztropine Mesylate (Cogentin) 2 mg BID PO Last administered on 05/27/16 09:12 ; Admin Dose 2 MG; Start 05/13/16 at 22:00 Clopidogrel Bisulfate (plaVIX) 75 mg DAILY PO Last administered on 05/27/16 09: 15; Admin Dose 75 MG; Start 05/14/16 at 09:00 Docusate Sodium (Colace) 100 mg BID PO Last administered on 05/27/16 09:12; Admin Dose 100 MG; Start 05/13/16 at 21:30 Famotidine (Pepcid) 20 mg BID PO Last administered on 05/27/16 09:15; Admin Dose 20 MG; Start 05/13/16 at 21:30 Fluphenazine HCl (Prolixin) 5 mg BID PO Last administered on 05/27/16 09:15; Admin Dose 5 MG; Start 05/13/16 at 22:00 Amlodipine Besylate (Norvasc) 10 mg DAILY PO Last administered on 05/27/16 09: 15; Admin Dose 10 MG; Start 05/13/16 at 21:30 Bisacodyl (Dulcolax Supp) 10 mg DAILY PRN [place] CONSTIPATION; Start 05/13/16 at 23 :30 Magnesium Hydroxide (Milk Of Mag) 30 ml BID PRN PO CONSTIPATION; Start at 23:30 Lactulose (Enulose) 20 gm DAILY PRN PO CONSTIPATION; Start 05/13/16 at 23:30 Hydralazine HCl (Apresoline) 25 mg Q6H PRN PO ELEVATED BLOOD PRESSURE Last administered on 05/14/16 14:19; Admin Dose 25 MG; Start 05/14/16 at 14:00 Nicotine (Nicoderm 14 Mg/ 24hr) 1 patch DAILY TRANSDERM Last administered on 09:15; Admin Dose 1 PATCH; Start 05/14/16 at 18:00 Carvedilol (Coreg) 6.25 mg BID PO Last administered on 05/27/16 09:14; Admin Dose 6.25 MG; Start 05/14/16 at 21:00 Benazepril HCl (Lotensin) 10 mg BID PO Last administered on 05/27/16 09:14; Admin Dose 10 MG; Start 05/14/16 at 21:00 Assessment/Plan Additional Assessment/Plan Rehab- 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 Continue rehab activities. Patient motivated, and making steady progress. DC planning in progress Hypertension. Anemia. Dyslipidemia. psych- stable Dysphagia- improved RUFINA REAGAN MD May 27, 2016 12:30
--- NOTE | 2016-05-27 19:44 | CONS ---
DATE OF ADMISSION: 05/13/2016 DATE OF CONSULTATION: 05/27/2016 PSYCHOLOGY -- INDIVIDUAL SESSION - [id number] HISTORY OF PRESENT ILLNESS: The patient is a followup on a patient who was seen last week. The carlos a rosenberg was seen lying on his bed. The patient reports that he is feeling much better. The patient wa s calmer. The patient is prepared to be discharged from the facility. The patient does want to go to a facility where he can be as independent as possible. The patient is trying to be located by [facility] if he can. The patient has been at the [facility], according to his report, for al most 40 years. The patient has a longstanding psychiatric history. The patient is stabilized on me dication at the present time. The patient is capable of making decisions at this time. His thinkin g is as clear as it probably ever has been. The patient is motivated to continue to work on himself and he does want a stable living environment. Dictated By: PARVEEN RICCI PHD RC/NIYAH Conf#: [id number] DID#: [id number]
[2016-05-27 20:00] VITALS: BP 146/83; RESP 18
[2016-05-27] MEDS: ATORVASTATIN 80 MG TAB PO SCH (20:43)
[2016-05-28 07:30] VITALS: BP 121/75; RESP 18
[2016-05-28] MEDS: DOCUSATE SODIUM 100 MG CAP PO SCH ×2 (10:18→22:00)
[2016-05-28] MEDS: FAMOTIDINE 20 MG TAB PO SCH ×2 (10:18→22:04)
[2016-05-28] MEDS: BENZTROPINE 1 MG TAB PO SCH ×2 (10:19→22:03)
[2016-05-28] MEDS: ASPIRIN (EC) 81 MG TAB PO SCH (10:19)
[2016-05-28] MEDS: CLOPIDOGREL 75 MG TAB PO SCH (10:19)
[2016-05-28] MEDS: AMLODIPINE 10 MG TAB PO SCH (10:19)
[2016-05-28] MEDS: FLUPHENAZINE 5 MG TAB PO SCH ×2 (10:19→22:03)
[2016-05-28] MEDS: BENAZEPRIL 10 MG TAB PO SCH ×2 (10:20→22:03)
[2016-05-28] MEDS: NICOTINE (14 MG/24 HR) PATCH TRANSDERM SCH (10:20)
--- NOTE | 2016-05-28 12:16 | CONS ---
Date/Time of Note Date/Time of Note DATE: 05/28/16 TIME: 12:12 Consult Date/Type/Reason Admit Date/Time May 13, 2016 at 19:30 Subjective Overall feeling better Objective pulm-cta min/mod ambulation Vital Signs Date Time Temp Pulse Resp B/P Pulse Ox O2 Delivery O2 Flow Rate FiO2 05/28/16 07:30 98.5 62 18 121/75 98 05/24/16 09:06 Room Air Intake and Output 05/27/16 05/27/16 05/28/16 14:59 22:59 06:59 Intake Total 720 ml 810 ml Output Total 700 ml 400 ml 750 ml Balance 20 ml 410 ml -750 ml Results/Medications Result Diagram: 05/27/1661405/27/16614 Medications Current Medications Acetaminophen (Tylenol Tab) 650 mg Q6H PRN PO PAIN AND OR ELEVATED TEMP Last administered on 05/25/16 21:03; Admin Dose 650 MG; Start 05/13/16 at 21:30 Aspirin (Halfprin) 81 mg DAILY PO Last administered on 05/28/16 10:19; Admin Dose 81 MG; Start 05/14/16 at 09:00 Atorvastatin Calcium (Lipitor) 80 mg HS PO Last administered on 05/27/16 20:43 ; Admin Dose 80 MG; Start 05/13/16 at 21:30 Benztropine Mesylate (Cogentin) 2 mg BID PO Last administered on 05/28/16 10:19 ; Admin Dose 2 MG; Start 05/13/16 at 22:00 Clopidogrel Bisulfate (plaVIX) 75 mg DAILY PO Last administered on 05/28/16 10: 19; Admin Dose 75 MG; Start 05/14/16 at 09:00 Docusate Sodium (Colace) 100 mg BID PO Last administered on 05/28/16 10:18; Admin Dose 100 MG; Start 05/13/16 at 21:30 Famotidine (Pepcid) 20 mg BID PO Last administered on 05/28/16 10:18; Admin Dose 20 MG; Start 05/13/16 at 21:30 Fluphenazine HCl (Prolixin) 5 mg BID PO Last administered on 05/28/16 10:19; Admin Dose 5 MG; Start 05/13/16 at 22:00 Amlodipine Besylate (Norvasc) 10 mg DAILY PO Last administered on 05/28/16 10: 19; Admin Dose 10 MG; Start 05/13/16 at 21:30 Bisacodyl (Dulcolax Supp) 10 mg DAILY PRN [place] CONSTIPATION; Start 05/13/16 at 23 :30 Magnesium Hydroxide (Milk Of Mag) 30 ml BID PRN PO CONSTIPATION; Start at 23:30 Lactulose (Enulose) 20 gm DAILY PRN PO CONSTIPATION; Start 05/13/16 at 23:30 Hydralazine HCl (Apresoline) 25 mg Q6H PRN PO ELEVATED BLOOD PRESSURE Last administered on 05/14/16 14:19; Admin Dose 25 MG; Start 05/14/16 at 14:00 Nicotine (Nicoderm 14 Mg/ 24hr) 1 patch DAILY TRANSDERM Last administered on 10:20; Admin Dose 1 PATCH; Start 05/14/16 at 18:00 Carvedilol (Coreg) 6.25 mg BID PO Last administered on 05/28/16 10:18; Admin Dose 6.25 MG; Start 05/14/16 at 21:00 Benazepril HCl (Lotensin) 10 mg BID PO Last administered on 05/28/16 10:20; Admin Dose 10 MG; Start 05/14/16 at 21:00 Assessment/Plan Additional Assessment/Plan Rehab- 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 Overall improved, continue treatment plan Hypertension. Anemia. Dyslipidemia. psych- stable Dysphagia- improved RUFINA REAGAN MD May 28, 2016 12:16
--- NOTE | 2016-05-28 13:05 | PN ---
DATE: SUBJECTIVE: Patient Vimal is stable this morning. Continues physical therapy, remains awake, selin rt, comfortable. VITAL SIGNS: Temperature 98, pulse 62, blood pressure 121/75, O2 saturation 96% on room air. NECK: Supple. No JVD or lymphadenopathy. CARDIAC: S1, S2, no added sounds or murmurs. CHEST: Diminished air entry bilaterally. ABDOMEN: Soft, nontender. No guarding or rebound. EXTREMITIES: No cyanosis, clubbing, edema. NEUROLOGICAL: Hemiplegia. IMPRESSION AND PLAN: 1. Acute cerebrovascular accident with hemiplegia. 2. Hypertension. 3. Hyperlipidemia. PLAN: 1. Continue physical therapy. 2. Continue antihypertensives. 3. Continue aspirin and Plavix. 4. DVT and GI prophylaxis. Dictated By: CHRISTINE SMITH/NIYAH Conf#: [id number] DID#: [id number]
[2016-05-28 20:00] VITALS: BP 121/78; RESP 19
[2016-05-28] MEDS: ATORVASTATIN 80 MG TAB PO SCH (22:02)
[2016-05-29 07:30] VITALS: BP 102/90; RESP 18
[2016-05-29] MEDS: ACETAMINOPHEN 325 MG TAB PO PRN ×2 (07:41→21:11)
[2016-05-29] MEDS: BENZTROPINE 1 MG TAB PO SCH ×2 (08:24→21:11)
[2016-05-29] MEDS: DOCUSATE SODIUM 100 MG CAP PO SCH ×2 (08:24→21:11)
[2016-05-29] MEDS: CLOPIDOGREL 75 MG TAB PO SCH (08:24)
[2016-05-29] MEDS: FLUPHENAZINE 5 MG TAB PO SCH ×2 (08:24→21:12)
[2016-05-29] MEDS: NICOTINE (14 MG/24 HR) PATCH TRANSDERM SCH (08:24)
[2016-05-29] MEDS: ASPIRIN (EC) 81 MG TAB PO SCH (08:24)
[2016-05-29] MEDS: FAMOTIDINE 20 MG TAB PO SCH ×2 (08:25→21:12)
[2016-05-29] MEDS: BENAZEPRIL 10 MG TAB PO SCH ×2 (08:25→21:12)
[2016-05-29] MEDS: AMLODIPINE 10 MG TAB PO SCH (08:26)
--- NOTE | 2016-05-29 12:11 | CONS ---
Date/Time of Note Date/Time of Note DATE: 05/29/16 TIME: 12:10 Consult Date/Type/Reason Admit Date/Time May 13, 2016 at 19:30 Subjective calm comfortable Objective min assist ambulation Vital Signs Date Time Temp Pulse Resp B/P Pulse Ox O2 Delivery O2 Flow Rate FiO2 05/29/16 07:30 98.3 65 18 102/90 98 Intake and Output 05/28/16 05/28/16 05/29/16 15:00 23:00 07:00 Intake Total 1600 ml 350 ml Output Total 1100 ml 650 ml Balance 500 ml -300 ml Results/Medications Result Diagram: 05/27/1615 05/27/1615 Medications Current Medications Acetaminophen (Tylenol Tab) 650 mg Q6H PRN PO PAIN AND OR ELEVATED TEMP Last administered on 05/29/16 07:41; Admin Dose 650 MG; Start 05/13/16 at 21:30 Aspirin (Halfprin) 81 mg DAILY PO Last administered on 05/29/16 08:24; Admin Dose 81 MG; Start 05/14/16 at 09:00 Atorvastatin Calcium (Lipitor) 80 mg HS PO Last administered on 05/28/16 22:02 ; Admin Dose 80 MG; Start 05/13/16 at 21:30 Benztropine Mesylate (Cogentin) 2 mg BID PO Last administered on 05/29/16 08: 24; Admin Dose 2 MG; Start 05/13/16 at 22:00 Clopidogrel Bisulfate (plaVIX) 75 mg DAILY PO Last administered on 05/29/16 08 :24; Admin Dose 75 MG; Start 05/14/16 at 09:00 Docusate Sodium (Colace) 100 mg BID PO Last administered on 05/29/16 08:24; Admin Dose 100 MG; Start 05/13/16 at 21:30 Famotidine (Pepcid) 20 mg BID PO Last administered on 05/29/16 08:25; Admin Dose 20 MG; Start 05/13/16 at 21:30 Fluphenazine HCl (Prolixin) 5 mg BID PO Last administered on 05/29/16 08:24; Admin Dose 5 MG; Start 05/13/16 at 22:00 Amlodipine Besylate (Norvasc) 10 mg DAILY PO Last administered on 3/9/17at 10: 19; Admin Dose 10 MG; Start 05/13/16 at 21:30 Bisacodyl (Dulcolax Supp) 10 mg DAILY PRN [place] CONSTIPATION; Start 05/13/16 at 23 :30 Magnesium Hydroxide (Milk Of Mag) 30 ml BID PRN PO CONSTIPATION; Start at 23:30 Lactulose (Enulose) 20 gm DAILY PRN PO CONSTIPATION; Start 05/13/16 at 23:30 Hydralazine HCl (Apresoline) 25 mg Q6H PRN PO ELEVATED BLOOD PRESSURE Last administered on 05/14/16 14:19; Admin Dose 25 MG; Start 05/14/16 at 14:00 Nicotine (Nicoderm 14 Mg/ 24hr) 1 patch DAILY TRANSDERM Last administered on 08:24; Admin Dose 1 PATCH; Start 05/14/16 at 18:00 Carvedilol (Coreg) 6.25 mg BID PO Last administered on 05/28/16 22:04; Admin Dose 6.25 MG; Start 05/14/16 at 21:00 Benazepril HCl (Lotensin) 10 mg BID PO Last administered on 05/28/16 22:03; Admin Dose 10 MG; Start 05/14/16 at 21:00 Assessment/Plan Additional Assessment/Plan Rehab- 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 Overall improved, continue rehab Hypertension. Anemia. Dyslipidemia. psych- stable Dysphagia- improved RUFINA REAGAN MD May 29, 2016 12:10
--- NOTE | 2016-05-29 15:34 | PN ---
DATE: 05/29/2016 REASON FOR FOLLOWUP: CVA. SUBJECTIVE: Patient Vimal continues to remain stable, awake, alert, oriented, comfortable this mo rning. Continues physical therapy. PHYSICAL EXAMINATION: VITAL SIGNS: Temperature 98, pulse 65, blood pressure 102/90, O2 saturation 96% on room air. NECK: Supple. No JVD or lymphadenopathy. CARDIAC: S1, S2, no added sounds or murmurs. CHEST: Diminished air entry bilaterally but no rales or wheezes. ABDOMEN: Soft, nontender. No guarding or rebound. EXTREMITIES: No cyanosis, clubbing, edema. NEUROLOGIC: Persistent hemiplegia. LABORATORY DATA: No recent labs, white count. IMPRESSION AND PLAN: 1. 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 2. History of hypertension. 3. History of anemia. 4. Hyperlipidemia. 5. History of psychiatric disorder. The patient to continue: 1. Continue physical therapy. 2. Continue antihypertensives. 3. Continue statin. 4. Continue nicotine patch for history of tobacco use. 5. DVT and GI prophylaxis. Dictated By: CHRISTINE SMITH/NIYAH Conf#: [id number] DID#: [id number]
[2016-05-29 20:39] VITALS: BP 134/83; RESP 18
[2016-05-29] MEDS: ATORVASTATIN 80 MG TAB PO SCH (21:12)
[2016-05-30] MEDS ORDERED: SILVER NITRATE SWAB TOP PRN (01:30)
[2016-05-30] MEDS ORDERED: SILVER NITRATE SWAB TOP ONE (02:00)
--- NOTE | 2016-05-30 03:12 | EN ---
Date/Time of Note Date/Time of Note DATE: 05/30/16 TIME: 03:11 ER Progress Note Epistaxis In the middle of the night, I was called as patient was having a nosebleed. I directed RN to have patient lean forward and pinch his nose for 5 minutes. If this did not work, then to do the same thing for 15 minutes. I asked her to have a Silver Nitrate stick on hand, just in case. Patient started to bleed again, shortly after he pinched his nose for 15 seconds. Another RN wondered about administering Vitamin K. This patient is is Acute Rehab for a recent stroke, and I feel that a little nosebleed is not significant enough to cut back on his anticoagulation. I went to the bedside, and, just as the RN had told me, there was red blood in the right nare at the septum. I explained to patient that, because of his blood thinners, it may be more difficult to stop his nose bleed, but that I do not think his bleed is serious, because of its location and the amount of blood present.I blotted that blood away x 3 and then applied the Silver Nitrate stick , after warning patient that it could sting and make his eyes water, but that his brain was much more important than his nose at this time. He tolerated the procedure well and his nose did stop bleeding. I instructed: no picking at nose , no blowing nose, no sneezing through nose. A scab needs to form and time must be given for the site to heal. Patient indicates understanding, and even sneezed 3 times shortly after the procedure and he did it correctly, through his mouth. He dabbed his nose a bit with some tissue and there was a diffuse amount of blood, but mostly a black residue from the Silver Nitrate Stick. If the blood increased, I directed patient to lean forward and hold pressure/pinch nose for 15 minutes, and that should be enough to stop any further bleeding. I directed the RN to call for 2 additional Silver Nitrate sticks to have on hand, "just in case". ALTHEA VALENTINO DO May 30, 2016 03:12
[2016-05-30 08:00] VITALS: BP 139/78; PULSE 64; RESP 18
[2016-05-30] MEDS: NICOTINE (14 MG/24 HR) PATCH TRANSDERM SCH (08:59)
[2016-05-30] MEDS: AMLODIPINE 10 MG TAB PO SCH (09:00)
[2016-05-30] MEDS: DOCUSATE SODIUM 100 MG CAP PO SCH ×2 (09:00→20:19)
[2016-05-30] MEDS: FLUPHENAZINE 5 MG TAB PO SCH ×2 (09:00→20:18)
[2016-05-30] MEDS: ASPIRIN (EC) 81 MG TAB PO SCH (09:01)
[2016-05-30] MEDS: FAMOTIDINE 20 MG TAB PO SCH ×2 (09:01→20:19)
[2016-05-30] MEDS: CLOPIDOGREL 75 MG TAB PO SCH (09:01)
[2016-05-30] MEDS: BENAZEPRIL 10 MG TAB PO SCH ×2 (09:01→20:19)
[2016-05-30] MEDS: BENZTROPINE 1 MG TAB PO SCH ×2 (09:01→20:19)
--- NOTE | 2016-05-30 12:02 | PN ---
Date/Time of Note Date/Time of Note DATE: 05/30/16 TIME: 11:57 Assessment/Plan Lines/Catheters IV Catheter Type (from Nrs): Saline Lock Urinary Cath still in place: No Assessment/Plan Assessment/Plan 1. Right basal ganglia and florez radiata cerebrovascular accident with extension of ischemic infarct into the right posterior limb of the internal capsule and cerebral peduncle with dominant left hemiparesis, impaired mobility/ gait/ADLs/cognition, dysphagia. Continue PT/OT/ST. Gait improving. Now supervision for bed mobility, CGA for transfers. Continue secondary stroke prevention. 2. Hypertension. Monitor BP, internal medicine and cardiology medically managing. 3. Anemia. Monitor hemoglobin/hematocrit. 4. Dyslipidemia. Continue statin. 5. Schizophrenia. Continue antipsychotic medications. 6. Nose bleed overnight resolved with silver nitrate swab. Closely monitor if any recurrence. Subjective 24 Hr Interval Summary Free Text/Dictation Rehab progress note Subjective: Nursing reports nose bleed overnight, stopped with with silver nitrate swab. Patient reports he was picking his nose previously. Denies any further bleeding. Denies hematochezia, no melana, no hematemesis, no hematuria. ROS: Denies chest pain, no shortness of breath, no headache, no dizziness, no chills, no abdominal pain, no nausea, no vomiting. Exam/Review of Systems Vital Signs Vitals Vital Signs Date Time Temp Pulse Resp B/P Pulse Ox O2 Delivery O2 Flow Rate FiO2 05/30/16 08:00 97.6 64 18 139/78 98 Room Air Intake and Output 05/29/16 05/29/16 05/30/16 15:00 23:00 07:00 Intake Total 1520 ml 1080 ml 240 ml Output Total 200 ml 1100 ml 725 ml Balance 1320 ml -20 ml -485 ml Exam General: Awake, alert, no acute distress HEENT: NC/AT, no active nasal bleeding noted CV: Regular rate, s1s2 Lungs: Symmetrical air entry bilaterally, no wheezing Abdomens soft, nontender, bowel sounds present Neuro: Left sided hemiparesis. Follows simple commands. Results Result Diagram: 05/27/1661405/27/16614 Medications Medications Current Medications Acetaminophen (Tylenol Tab) 650 mg Q6H PRN PO PAIN AND OR ELEVATED TEMP Last administered on 05/29/16t 21:11; Admin Dose 650 MG; Start 05/13/16 at 21:30 Aspirin (Halfprin) 81 mg DAILY PO Last administered on 05/30/16 09:01; Admin Dose 81 MG; Start 05/14/16 at 09:00 Atorvastatin Calcium (Lipitor) 80 mg HS PO Last administered on 05/29/16 21:12 ; Admin Dose 80 MG; Start 05/13/16 at 21:30 Benztropine Mesylate (Cogentin) 2 mg BID PO Last administered on 05/30/16 09: 01; Admin Dose 2 MG; Start 05/13/16 at 22:00 Clopidogrel Bisulfate (plaVIX) 75 mg DAILY PO Last administered on 05/30/16 09 :01; Admin Dose 75 MG; Start 05/14/16 at 09:00 Docusate Sodium (Colace) 100 mg BID PO Last administered on 05/30/16 09:00; Admin Dose 100 MG; Start 05/13/16 at 21:30 Famotidine (Pepcid) 20 mg BID PO Last administered on 05/30/16 09:01; Admin Dose 20 MG; Start 05/13/16 at 21:30 Fluphenazine HCl (Prolixin) 5 mg BID PO Last administered on 05/30/16 09:00; Admin Dose 5 MG; Start 05/13/16 at 22:00 Amlodipine Besylate (Norvasc) 10 mg DAILY PO Last administered on 05/30/16 09: 00; Admin Dose 10 MG; Start 05/13/16 at 21:30 Bisacodyl (Dulcolax Supp) 10 mg DAILY PRN [place] CONSTIPATION; Start 05/13/16 at 23 :30 Magnesium Hydroxide (Milk Of Mag) 30 ml BID PRN PO CONSTIPATION; Start at 23:30 Lactulose (Enulose) 20 gm DAILY PRN PO CONSTIPATION; Start 05/13/16 at 23:30 Hydralazine HCl (Apresoline) 25 mg Q6H PRN PO ELEVATED BLOOD PRESSURE Last administered on 05/14/16 14:19; Admin Dose 25 MG; Start 05/14/16 at 14:00 Nicotine (Nicoderm 14 Mg/ 24hr) 1 patch DAILY TRANSDERM Last administered on 08:59; Admin Dose 1 PATCH; Start 05/14/16 at 18:00 Carvedilol (Coreg) 6.25 mg BID PO Last administered on 05/30/16 09:00; Admin Dose 6.25 MG; Start 05/14/16 at 21:00 Benazepril HCl (Lotensin) 10 mg BID PO Last administered on 05/30/16 09:01; Admin Dose 10 MG; Start 05/14/16 at 21:00 Silver Nitrate (Silver Nitrate Swabs) 1 stick ONCE PRN TOP nasal bleeding Last administered on 05/30/16 02:00; Admin Dose 1 STICK; Start 05/30/16 at 01:30 MINGO KING May 30, 2016 12:02
[2016-05-30 19:42] VITALS: BP 144/86; RESP 18
[2016-05-30] MEDS: ATORVASTATIN 80 MG TAB PO SCH (20:18)
[2016-05-31 07:18] VITALS: BP 134/87; RESP 20
[2016-05-31] MEDS: DOCUSATE SODIUM 100 MG CAP PO SCH ×2 (11:42→20:06)
[2016-05-31] MEDS: NICOTINE (14 MG/24 HR) PATCH TRANSDERM SCH (11:42)
[2016-05-31] MEDS: FAMOTIDINE 20 MG TAB PO SCH ×2 (11:42→20:06)
[2016-05-31] MEDS: FLUPHENAZINE 5 MG TAB PO SCH ×2 (11:43→20:07)
[2016-05-31] MEDS: CLOPIDOGREL 75 MG TAB PO SCH (11:43)
[2016-05-31] MEDS: ASPIRIN (EC) 81 MG TAB PO SCH (11:43)
[2016-05-31] MEDS: AMLODIPINE 10 MG TAB PO SCH (11:46)
[2016-05-31] MEDS: BENAZEPRIL 10 MG TAB PO SCH ×2 (11:46→20:07)
[2016-05-31] MEDS: BENZTROPINE 1 MG TAB PO SCH ×2 (11:48→20:06)
--- NOTE | 2016-05-31 12:10 | PN ---
Date/Time of Note Date/Time of Note DATE: 05/31/16 TIME: 12:08 Assessment/Plan Lines/Catheters IV Catheter Type (from Nrs): Saline Lock Urinary Cath still in place: No Assessment/Plan Assessment/Plan 1. Right basal ganglia and florez radiata cerebrovascular accident with extension of ischemic infarct into the right posterior limb of the internal capsule and cerebral peduncle with dominant left hemiparesis, impaired mobility/ gait/ADLs/cognition, dysphagia. Continue PT/OT/ST. Stand by assistance for grooming, min assist for toileting. Continue secondary stroke prevention. 2. Hypertension. BP controlled. internal medicine and cardiology medically managing. 3. Anemia. Monitor hemoglobin/hematocrit. 4. Dyslipidemia. Continue statin. 5. Schizophrenia. Continue current regimen. Subjective 24 Hr Interval Summary Free Text/Dictation Rehab progress note Subjective: Nursing reports no acute overnight events. Patient denies further nose bleeding. ROS: Denies chills, no headache, no dizziness, no new weakness, no chest pain, no shortness of breath, no abdominal pain, no nausea. Exam/Review of Systems Vital Signs Vitals Vital Signs Date Time Temp Pulse Resp B/P Pulse Ox O2 Delivery O2 Flow Rate FiO2 05/31/16 07:18 98.1 65 20 134/87 99 05/30/16 08:00 Room Air Intake and Output 05/30/16 05/30/16 05/31/16 15:00 23:00 07:00 Intake Total 240 ml 2000 ml Output Total 1900 ml 400 ml Balance 240 ml 100 ml -400 ml Exam General: Awake, alert, no acute distress CV: Regular rate, s1s2 Lungs: Respirations are nonlabored, no wheezing Abdomen soft, nontender, bowel sounds present Extremities: No cyanosis, no distal edema. Neuro: No focal changes. Follows simple commands. Results Result Diagram: 05/27/1661405/27/16614 Medications Medications Current Medications Acetaminophen (Tylenol Tab) 650 mg Q6H PRN PO PAIN AND OR ELEVATED TEMP Last administered on 05/29/16 21:11; Admin Dose 650 MG; Start 05/13/16 at 21:30 Aspirin (Halfprin) 81 mg DAILY PO Last administered on 05/31/16 11:43; Admin Dose 81 MG; Start 05/14/16 at 09:00 Atorvastatin Calcium (Lipitor) 80 mg HS PO Last administered on 05/30/16 20:18 ; Admin Dose 80 MG; Start 05/13/16 at 21:30 Benztropine Mesylate (Cogentin) 2 mg BID PO Last administered on 05/31/16 11: 48; Admin Dose 2 MG; Start 05/13/16 at 22:00 Clopidogrel Bisulfate (plaVIX) 75 mg DAILY PO Last administered on 05/31/16 11 :43; Admin Dose 75 MG; Start 05/14/16 at 09:00 Docusate Sodium (Colace) 100 mg BID PO Last administered on 05/31/16 11:42; Admin Dose 100 MG; Start 05/13/16 at 21:30 Famotidine (Pepcid) 20 mg BID PO Last administered on 05/31/16 11:42; Admin Dose 20 MG; Start 05/13/16 at 21:30 Fluphenazine HCl (Prolixin) 5 mg BID PO Last administered on 05/31/16 11:43; Admin Dose 5 MG; Start 05/13/16 at 22:00 Amlodipine Besylate (Norvasc) 10 mg DAILY PO Last administered on 05/31/16 11: 46; Admin Dose 10 MG; Start 05/13/16 at 21:30 Bisacodyl (Dulcolax Supp) 10 mg DAILY PRN [place] CONSTIPATION; Start 05/13/16 at 23 :30 Magnesium Hydroxide (Milk Of Mag) 30 ml BID PRN PO CONSTIPATION; Start at 23:30 Lactulose (Enulose) 20 gm DAILY PRN PO CONSTIPATION; Start 05/13/16 at 23:30 Hydralazine HCl (Apresoline) 25 mg Q6H PRN PO ELEVATED BLOOD PRESSURE Last administered on 05/14/16 14:19; Admin Dose 25 MG; Start 05/14/16 at 14:00 Nicotine (Nicoderm 14 Mg/ 24hr) 1 patch DAILY TRANSDERM Last administered on 11:42; Admin Dose 1 PATCH; Start 05/14/16 at 18:00 Carvedilol (Coreg) 6.25 mg BID PO Last administered on 05/31/16 11:45; Admin Dose 6.25 MG; Start 05/14/16 at 21:00 Benazepril HCl (Lotensin) 10 mg BID PO Last administered on 05/31/16 11:46; Admin Dose 10 MG; Start 05/14/16 at 21:00 Silver Nitrate (Silver Nitrate Swabs) 1 stick ONCE PRN TOP nasal bleeding Last administered on 05/30/16 02:00; Admin Dose 1 STICK; Start 05/30/16 at 01:30 MINGO KING May 31, 2016 12:10
[2016-05-31 20:03] VITALS: BP 133/83; PULSE 70; RESP 18
[2016-05-31] MEDS: ATORVASTATIN 80 MG TAB PO SCH (20:06)
[2016-06-01 07:10] VITALS: BP 125/60; PULSE 60; RESP 18
[2016-06-01 07:30] VITALS: BP 125/80; RESP 18
[2016-06-01] MEDS: ASPIRIN (EC) 81 MG TAB PO SCH (08:44)
[2016-06-01] MEDS: BENZTROPINE 1 MG TAB PO SCH ×2 (08:44→21:29)
[2016-06-01] MEDS: DOCUSATE SODIUM 100 MG CAP PO SCH ×2 (08:44→21:28)
[2016-06-01] MEDS: AMLODIPINE 10 MG TAB PO SCH (08:45)
[2016-06-01] MEDS: BENAZEPRIL 10 MG TAB PO SCH ×2 (08:45→21:29)
[2016-06-01] MEDS: CLOPIDOGREL 75 MG TAB PO SCH (08:45)
[2016-06-01] MEDS: NICOTINE (14 MG/24 HR) PATCH TRANSDERM SCH (08:45)
[2016-06-01] MEDS: FAMOTIDINE 20 MG TAB PO SCH ×2 (08:45→21:28)
[2016-06-01] MEDS: FLUPHENAZINE 5 MG TAB PO SCH ×2 (08:45→21:29)
--- NOTE | 2016-06-01 12:18 | CONS ---
Date/Time of Note Date/Time of Note DATE: 06/01/16 TIME: Consult Date/Type/Reason Admit Date/Time May 13, 2016 at 19:30 Subjective Patient in good spirits Objective Vital Signs Date Time Temp Pulse Resp B/P Pulse Ox O2 Delivery O2 Flow Rate FiO2 06/01/16 07:30 98.5 60 18 125/80 97 06/01/16 07:10 Room Air Intake and Output 05/31/16 05/31/16 06/01/16 15:00 23:00 07:00 Intake Total 300 ml 500 ml Output Total 250 ml 1200 ml Balance 50 ml -700 ml INTERDISCIPLINARY TEAM CONFERENCE BOWEL- Cont BLADDER-Cont SKIN- intact OT- DRESSING-sba/min BATHING-sba/min TOILETING-sba/min PT- BED MOBILITY-sba/cga TRANSFERS-sba/cga AMBULATION-sba/cga 200 SPEECH- COGNITION-HI A/P- Interdisciplinary team conference held today. Please see interdisciplinary sheet. Working toward d.c. on 06/03 with post discharge follow up of physical therapy, occupational therapy. Results/Medications Medications Current Medications Acetaminophen (Tylenol Tab) 650 mg Q6H PRN PO PAIN AND OR ELEVATED TEMP Last administered on 05/29/16 21:11; Admin Dose 650 MG; Start 05/13/16 at 21:30 Aspirin (Halfprin) 81 mg DAILY PO Last administered on 06/01/16 08:44; Admin Dose 81 MG; Start 05/14/16 at 09:00 Atorvastatin Calcium (Lipitor) 80 mg HS PO Last administered on 05/31/16 20:06 ; Admin Dose 80 MG; Start 05/13/16 at 21:30 Benztropine Mesylate (Cogentin) 2 mg BID PO Last administered on 06/01/16 08: 44; Admin Dose 2 MG; Start 05/13/16 at 22:00 Clopidogrel Bisulfate (plaVIX) 75 mg DAILY PO Last administered on 06/01/16 08 :45; Admin Dose 75 MG; Start 05/14/16 at 09:00 Docusate Sodium (Colace) 100 mg BID PO Last administered on 06/01/16 08:44; Admin Dose 100 MG; Start 05/13/16 at 21:30 Famotidine (Pepcid) 20 mg BID PO Last administered on 06/01/16 08:45; Admin Dose 20 MG; Start 05/13/16 at 21:30 Fluphenazine HCl (Prolixin) 5 mg BID PO Last administered on 06/01/16 08:45; Admin Dose 5 MG; Start 05/13/16 at 22:00 Amlodipine Besylate (Norvasc) 10 mg DAILY PO Last administered on 06/01/16 08: 45; Admin Dose 10 MG; Start 05/13/16 at 21:30 Bisacodyl (Dulcolax Supp) [address] CONSTIPATION; Start 05/13/16 at 23 :30 Magnesium Hydroxide (Milk Of Mag) 30 ml BID PRN PO CONSTIPATION; Start at 23:30 Lactulose (Enulose) 20 gm DAILY PRN PO CONSTIPATION; Start 05/13/16 at 23:30 Hydralazine HCl (Apresoline) 25 mg Q6H PRN PO ELEVATED BLOOD PRESSURE Last administered on 05/14/16 14:19; Admin Dose 25 MG; Start 05/14/16 at 14:00 Nicotine (Nicoderm 14 Mg/ 24hr) 1 patch DAILY TRANSDERM Last administered on 08:45; Admin Dose 1 PATCH; Start 05/14/16 at 18:00 Carvedilol (Coreg) 6.25 mg BID PO Last administered on 06/01/16 08:44; Admin Dose 6.25 MG; Start 05/14/16 at 21:00 Benazepril HCl (Lotensin) 10 mg BID PO Last administered on 06/01/16 08:45; Admin Dose 10 MG; Start 05/14/16 at 21:00 Silver Nitrate (Silver Nitrate Swabs) 1 stick ONCE PRN TOP nasal bleeding Last administered on 05/30/16 02:00; Admin Dose 1 STICK; Start 05/30/16 at 01:30 RUFINA REAGAN MD Jun 01, 2016 12:18
--- NOTE | 2016-06-01 17:23 | PN ---
DATE: 06/01/2016 SUBJECTIVE: Mr. Celis remains stable. No new events. No evidence of respiratory distress. PHYSICAL EXAMINATION: VITAL SIGNS: Temperature 98, pulse is 60, blood pressure 125/80, O2 saturation 96% on room air. NECK: Supple. No JVD or lymphadenopathy. CARDIAC: S1, S2. No added sounds or murmurs. LUNGS: Clear to auscultation bilaterally. ABDOMEN: Soft, nontender. No guarding or rebound. EXTREMITIES: No cyanosis, clubbing, edema. NEUROLOGIC: Hemiplegia. IMPRESSION AND PLAN: 1. History of cerebrovascular accident with hemiplegia. 2. History of hypertension. 3. History of tobacco use. PLAN: 1. Continue antihypertensives. 2. Continue physical therapy. 3. Continue nicotine patch as needed. 4. Deep venous thrombosis and gastrointestinal prophylaxis. Dictated By: CHRISTINE SMITH/NIYAH Conf#: [id number] DID#: [id number]
[2016-06-01 19:44] VITALS: BP 110/70; RESP 19
[2016-06-01] MEDS: ATORVASTATIN 80 MG TAB PO SCH (21:28)
[2016-06-02 08:10] VITALS: BP 129/83; RESP 18
[2016-06-02] MEDS: NICOTINE (14 MG/24 HR) PATCH TRANSDERM SCH (08:27)
[2016-06-02] MEDS: BENAZEPRIL 10 MG TAB PO SCH (08:27)
[2016-06-02] MEDS: FLUPHENAZINE 5 MG TAB PO SCH (08:27)
[2016-06-02] MEDS: CLOPIDOGREL 75 MG TAB PO SCH (08:27)
[2016-06-02] MEDS: DOCUSATE SODIUM 100 MG CAP PO SCH (08:27)
[2016-06-02] MEDS: ASPIRIN (EC) 81 MG TAB PO SCH (08:27)
[2016-06-02] MEDS: FAMOTIDINE 20 MG TAB PO SCH (08:27)
[2016-06-02] MEDS: AMLODIPINE 10 MG TAB PO SCH (08:27)
[2016-06-02] MEDS: BENZTROPINE 1 MG TAB PO SCH (08:28)
--- NOTE | 2016-06-02 11:08 | CONS ---
Date/Time of Note Date/Time of Note DATE: 06/02/16 TIME: 11:07 Consult Date/Type/Reason Admit Date/Time May 13, 2016 at 19:30 Subjective patient in good spirits, pleased with his progress Objective pulm-cta abd-soft sba/min transfer and ambulation Vital Signs Date Time Temp Pulse Resp B/P Pulse Ox O2 Delivery O2 Flow Rate FiO2 06/02/16 08:10 98.2 69 18 129/83 97 06/01/16 07:10 Room Air Intake and Output 06/01/16 06/01/16 06/02/16 15:00 23:00 07:00 Intake Total 1450 ml 350 ml Output Total 820 ml 650 ml Balance 630 ml -300 ml Results/Medications Medications Current Medications Acetaminophen (Tylenol Tab) 650 mg Q6H PRN PO PAIN AND OR ELEVATED TEMP Last administered on 05/29/16 21:11; Admin Dose 650 MG; Start 05/13/16 at 21:30 Aspirin (Halfprin) 81 mg DAILY PO Last administered on 06/02/16 08:27; Admin Dose 81 MG; Start 05/14/16 at 09:00 Atorvastatin Calcium (Lipitor) 80 mg HS PO Last administered on 06/01/16 21:28 ; Admin Dose 80 MG; Start 05/13/16 at 21:30 Benztropine Mesylate (Cogentin) 2 mg BID PO Last administered on 06/02/16 08: 28; Admin Dose 2 MG; Start 05/13/16 at 22:00 Clopidogrel Bisulfate (plaVIX) 75 mg DAILY PO Last administered on 06/02/16 08 :27; Admin Dose 75 MG; Start 05/14/16 at 09:00 Docusate Sodium (Colace) 100 mg BID PO Last administered on 06/02/16 08:27; Admin Dose 100 MG; Start 05/13/16 at 21:30 Famotidine (Pepcid) 20 mg BID PO Last administered on 06/02/16 08:27; Admin Dose 20 MG; Start 05/13/16 at 21:30 Fluphenazine HCl (Prolixin) 5 mg BID PO Last administered on 06/02/16 08:27; Admin Dose 5 MG; Start 05/13/16 at 22:00 Amlodipine Besylate (Norvasc) 10 mg DAILY PO Last administered on 06/02/16 08: 27; Admin Dose 10 MG; Start 05/13/16 at 21:30 Bisacodyl (Dulcolax Supp) 10 mg DAILY PRN [place] CONSTIPATION; Start 05/13/16 at 23 :30 Magnesium Hydroxide (Milk Of Mag) 30 ml BID PRN PO CONSTIPATION; Start at 23:30 Lactulose (Enulose) 20 gm DAILY PRN PO CONSTIPATION; Start 05/13/16 at 23:30 Hydralazine HCl (Apresoline) 25 mg Q6H PRN PO ELEVATED BLOOD PRESSURE Last administered on 05/14/16 14:19; Admin Dose 25 MG; Start 05/14/16 at 14:00 Nicotine (Nicoderm 14 Mg/ 24hr) 1 patch DAILY TRANSDERM Last administered on 08:27; Admin Dose 1 PATCH; Start 05/14/16 at 18:00 Carvedilol (Coreg) 6.25 mg BID PO Last administered on 06/02/16 08:26; Admin Dose 6.25 MG; Start 05/14/16 at 21:00 Benazepril HCl (Lotensin) 10 mg BID PO Last administered on 06/02/16 08:27; Admin Dose 10 MG; Start 05/14/16 at 21:00 Silver Nitrate (Silver Nitrate Swabs) 1 stick ONCE PRN TOP nasal bleeding Last administered on 05/30/16 02:00; Admin Dose 1 STICK; Start 05/30/16 at 01:30 Assessment/Plan Additional Assessment/Plan Rehab- 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 Excellent steady progress Dispo-sw working with patient regarding dc planning Hypertension. Anemia. Dyslipidemia. psych- stable Dysphagia- improved RUFINA REAGAN MD Jun 02, 2016 11:08
== END 2016-06-02 14:45 | DRG 57 ==
LOC: VRC 19:30
PROVIDERS: ADMIT Physical Medicine & Rehabilitation; ATTEND Family Medicine
PROC: F07Z5FZ Bed Mobility Treatment using Assistive, Adaptive, Supportive or Protective Equipment (ICD-10-PCS; principal; 2016-05-14)
PROC: F07Z8FZ Transfer Training Treatment using Assistive, Adaptive, Supportive or Protective Equipment (ICD-10-PCS; 2016-05-14)
PROC: F07Z9FZ Gait Training/Functional Ambulation Treatment using Assistive, Adaptive, Supportive or Protective Equipment (ICD-10-PCS; 2016-05-14)
PROC: F08Z2FZ Grooming/Personal Hygiene Treatment using Assistive, Adaptive, Supportive or Protective Equipment (ICD-10-PCS; 2016-05-14)
PROC: F08Z1FZ Dressing Techniques Treatment using Assistive, Adaptive, Supportive or Protective Equipment (ICD-10-PCS; 2016-05-14)
PROC: F08Z0FZ Bathing/Showering Techniques Treatment using Assistive, Adaptive, Supportive or Protective Equipment (ICD-10-PCS; 2016-05-14)
DX: I69.354 Hemiplegia and hemiparesis following cerebral infarction affecting left non-dominant side (principal); R13.10 Dysphagia, unspecified; I10 Essential (primary) hypertension; F20.0 Paranoid schizophrenia; F06.34 Mood disorder due to known physiological condition with mixed features; E78.5 Hyperlipidemia, unspecified; D64.9 Anemia, unspecified; F17.210 Nicotine dependence, cigarettes, uncomplicated; I69.391 Dysphagia following cerebral infarction; Z79.82 Long term (current) use of aspirin; Z79.02 Long term (current) use of antithrombotics/antiplatelets; R04.0 Epistaxis
CPT/HCPCS: 71010; 72100; 80048; 80053; 80061; 81001; 81003; 83735; 84100; 84484; 85025; 87081; 87086; 92507; 92523; 92526; 92610; 93005; 95852; 97110; 97112; 97116; 97150; 97163; 97167; 97530; 97535; 97542; J1815; L1820; L1932; L2820